=== PATIENT | male | born 1930 | race Caucasian/White ===

== ENCOUNTER → 2016-05-06 | Outpatient (CLI) | payer BC ==
[~2016-05-06] MED LIST: ASPI1TAB83 PO; CHOL1CAP57 PO; GLCSR500 PO; INSDGI SQ; MULTTAB58 PO; NIAC500T83 PO; SIMV-151 PO
[2016-05-06 10:01] LABS: BLOOD UREA NITROGEN 17 mg/dl (7-18); BUN/CREATININE RATIO 17.4 (10-20); CALCIUM 9.1 mg/dl (8.5-10.1); CARBON DIOXIDE 28 mmol/L (21-32); CHLORIDE 102 mmol/L (98-107); GLUCOSE 138 mg/dl (70-99); POTASSIUM 4.4 mmol/L (3.5-5.1); SODIUM 140 mmol/L (136-145)
[2016-05-06 10:40] LABS: ESTIMATED AVERAGE GLUCOSE 177 mg/dl; HA1C FLAG Normal (Normal)
== END | disposition home or self-care (01) ==
LOC: C.LAB 07:35
PROVIDERS: ATTEND Internal Medicine
DX: E11.9 Type 2 diabetes mellitus without complications (principal)

== ENCOUNTER → 2016-11-23 | Outpatient (CLI) | payer BC ==
[~2016-11-23] MED LIST changes: -NIAC500T83 PO; +NSP/500 PO
[2016-11-23 09:35] LABS: BASO % 0.4 %; BASO ABS # 0.03 K/uL (0-0.2); COMPLETE YES; EOS % 1.6 %; HEMATOCRIT 43.5 % (42-52); IG% 0.4 %; LYMPH % 22.2 %; LYMPH ABS # 1.51 K/uL (1.2-3.4); MEAN CELL VOLUME 89.3 fL (80-100); MEAN CORPUSCULAR HGB CONC 33.6 g/dl (32-36); MEAN PLATELET VOLUME 10.5 fL (7.4-10.4); MONO % 9.1 %; NEUT % 66.3 %; PLATELET COUNT 241 K/uL (130-400); RED BLOOD COUNT 4.87 M/uL (4.7-6.1); WHITE BLOOD COUNT 6.79 K/uL (4.8-10.8)
[2016-11-23 09:56] LABS: ALT/SGPT 13 U/L (12-78); AST/SGOT 12 U/L (15-37); BLOOD UREA NITROGEN 15 mg/dl (7-18); BUN/CREATININE RATIO 13.5 (10-20); CALCIUM 9.2 mg/dl (8.5-10.1); CARBON DIOXIDE 30 mmol/L (21-32); CHLORIDE 102 mmol/L (98-107); CHOLESTEROL 145 mg/dl (0-200); GLUCOSE 90 mg/dl (70-99); POTASSIUM 4.6 mmol/L (3.5-5.1); SODIUM 138 mmol/L (136-145); TRIGLYCERIDES 88 mg/dl (0-150); VERY LOW DENSITY LIPOPROT CALC 18 mg/dl
[2016-11-23 09:59] LABS: ALB/GLOB RATIO 1.1 (0.9-2); ALKALINE PHOSPHATASE 48 U/L (45-117); CHOLESTEROL/HDL RATIO 3.2; ESTIMATED AVERAGE GLUCOSE 186 mg/dl; HA1C FLAG Normal (Normal); HDL CHOLESTEROL 45 mg/dl; LDL CHOLESTEROL CALCULATED 82 mg/dl
--- NOTE | 2016-11-30 08:22 | CODING QUERY MEDICAL NECESSITY ---
SUPPORTING DIAGNOSIS NEEDED Dr. Jack, A supporting diagnosis is required for the test/procedure performed on this patient in order for us to be reimbursed by the patient's insurance. Please provide a supporting diagnosis for the following test/procedure listed below next to the test name along with your signature. *If there is no additional diagnosis for this patient that would support the following test/procedure please document that below next to the test/procedure. Test(s)/Procedure(s) that require a supporting diagnosis: * ([id number]) VITAMIN D ASSAY DIAGNOSIS: * [id number] GLYCATED HEMOGLOBIN DIAGNOSIS: DATE OF SERVICE: 11/23/16 Provider Signature: Date: Thank you Huber Almanzar Health Information Management Once completed, please kindly fax back to [phone] For questions please call [phone]
== END | disposition home or self-care (01) ==
LOC: C.LAB 07:21
PROVIDERS: ATTEND Internal Medicine
DX: M54.5 Low back pain (principal); E55.9 Vitamin D deficiency, unspecified; E11.9 Type 2 diabetes mellitus without complications

== ENCOUNTER → 2016-12-02 | Outpatient (CLI) | payer BC ==
--- NOTE | 2016-12-02 09:43 | DIAGNOSTIC IMAGING REPORT ---
LUMBAR SPINE 5 VIEWS HISTORY: M54.5 Low back pain COMPARISON: Lumbar spine 12/04/2013. FINDINGS: There is no fracture. No subluxation. S1 appears to be a transitional vertebra. There is mild to moderate disc space narrowing at L5-S1 which is slightly progressed. Remaining disc spaces are preserved. Moderate to severe facet degenerative changes within the lower lumbar spine which is also progressed. The sacrum appears intact. IMPRESSION: No fracture or subluxation within the lumbar spine. Progression of the degenerative changes within the lower lumbar spine as described above. Electronically signed by: Raj Madison M.D. 12/02/2016 9:42 AM Dictated Date/Time: 12/02/2016 9:38 AM
== END | disposition home or self-care (01) ==
LOC: C.RADBC 09:11
PROVIDERS: ATTEND Internal Medicine
DX: M54.5 Low back pain (principal)

== ENCOUNTER → 2017-06-03 | Outpatient (CLI) | payer BC ==
[~2017-06-03] MED LIST changes: +NIAC500T83 PO; -NSP/500 PO
[2017-06-03 09:45] LABS: HEMOGLOBIN A1C 8.3 % (4.5-5.6)
== END | disposition home or self-care (01) ==
LOC: C.LAB 07:33
PROVIDERS: ATTEND Internal Medicine
DX: E11.9 Type 2 diabetes mellitus without complications (principal); E55.9 Vitamin D deficiency, unspecified

== ENCOUNTER → 2017-07-26 | Outpatient (CLI) | payer BC ==
[2017-07-26 10:42] LABS: BASO % 0.2 %; BASO ABS # 0.02 K/uL (0-0.2); EOS % 0.6 %; EOS ABS # 0.05 K/uL (0-0.5); HEMOGLOBIN 14.3 g/dL (14.0-18.0); IG# 0.02 K/uL (0.00-0.02); LYMPH % 16.2 %; LYMPH ABS # 1.33 K/uL (1.2-3.4); MEAN CELL VOLUME 88.4 fL (80-100); MEAN CORPUSCULAR HEMOGLOBIN 30.1 pg (25-34); MEAN PLATELET VOLUME 10.5 fL (7.4-10.4); MONO % 7.4 %; MONO ABS # 0.61 K/uL (0.11-0.59); NEUT % 75.4 %; NEUT ABS # 6.17 K/uL (1.4-6.5); PLATELET COUNT 254 K/uL (130-400); RED CELL DISTRIBUTION WIDTH CV 13.3 % (11.5-14.5); RED CELL DISTRIBUTION WIDTH SD 43.5 fL (36.4-46.3)
[2017-07-26 11:06] LABS: ALBUMIN 3.6 gm/dl (3.4-5.0); ALT/SGPT 13 U/L (12-78); AST/SGOT 13 U/L (15-37); BLOOD UREA NITROGEN 19 mg/dl (7-18); CARBON DIOXIDE 28 mmol/L (21-32); CREATININE 1.11 mg/dl (0.60-1.40); GLUCOSE 287 mg/dl (70-99); POTASSIUM 4.7 mmol/L (3.5-5.1); SODIUM 131 mmol/L (136-145)
[2017-07-26 11:09] LABS: ALKALINE PHOSPHATASE 54 U/L (45-117); TOTAL PROTEIN 7.3 gm/dl (6.4-8.2)
== END | disposition home or self-care (01) ==
LOC: C.LABBC 09:00
PROVIDERS: ATTEND Family Medicine Adult Medicine
DX: R10.9 Unspecified abdominal pain (principal)

== ENCOUNTER → 2017-11-23 | Outpatient (CLI) | payer BC ==
[~2017-11-23] MED LIST changes: +ACET-1047 PO; +GLC/500 PO; -GLCSR500 PO; -INSDGI SQ; +INSDGIPEN SC; +NRV5 PO; +XLTOPS OPR
--- NOTE | 2017-11-23 14:50 | DIAGNOSTIC IMAGING REPORT ---
R RIBS UNILATERAL WITH PA CHEST (5 views) CLINICAL HISTORY: RIGHT RIB PAIN STATUS POST TRAUMA COMPARISON STUDY: Chest x-ray dated 10/07/2017 FINDINGS: The erect chest reveals no pneumothorax. There are low lung volumes with mild basilar atelectasis. No acute fractures are visualized. IMPRESSION: No evidence of pneumothorax. No right-sided rib fractures identified. Electronically signed by: Avila Pink M.D. 11/23/2017 2:49 PM Dictated Date/Time: 11/23/2017 2:47 PM
--- NOTE | 2017-11-23 14:50 | DIAGNOSTIC IMAGING REPORT ---
RIGHT CLAVICLE RADIOGRAPHS CLINICAL HISTORY: Right shoulder pain following fall. COMPARISON: Chest CT October 07, 2017. FINDINGS: Alignment of the right acromioclavicular joint is anatomic. No acute fracture of the right clavicle is identified. IMPRESSION: No acute fracture of the right clavicle. Electronically signed by: Eloy Reynolds M.D. 11/23/2017 2:49 PM Dictated Date/Time: 11/23/2017 2:47 PM
--- NOTE | 2017-11-23 14:52 | DIAGNOSTIC IMAGING REPORT ---
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 The bones appear moderately demineralized. No acute fracture or dislocation. Right basilar opacities suggest atelectasis. Calcification of the aorta. IMPRESSION: No acute fracture or dislocation. The above report was generated using voice recognition software. It may contain grammatical, syntax or spelling errors. Electronically signed by: Winston Black M.D. 11/23/2017 2:50 PM Dictated Date/Time: 11/23/2017 2:48 PM
== END | disposition home or self-care (01) ==
LOC: C.RADBC 14:28
PROVIDERS: ATTEND Physician Assistant Medical
DX: M25.511 Pain in right shoulder (principal); R07.81 Pleurodynia; W19.XXXA Unspecified fall, initial encounter

== ENCOUNTER 2019-05-10 20:44 | Observation (INO) ==
[2019-05-10] MEDS ORDERED: ONDANSETRON INJ 2 MG/ML 2 ML VIAL IV STA (20:53)
[2019-05-10 21:23] LABS: Basophils # (auto) 0.04 K/uL (0-0.2); Basophils % (auto) 0.3 %; Eosinophils # (auto) 0.17 K/uL (0-0.5); Eosinophils % (auto) 1.2 %; Hematocrit (blood only) 45.6 % (42-52); Hemoglobin 15.5 g/dL (14.0-18.0); Immature Granulocytes # (auto) 0.06 K/uL (0.00-0.02); Immature Granulocytes % (auto) 0.4 %; Lymphocytes # (auto) 1.23 K/uL (1.2-3.4); Lymphocytes % (auto) 8.6 %; Mean Corpuscular Hemoglobin 30.5 pg (25-34); Mean Corpuscular Volume 89.8 fL (80-100); Mean Platelet Volume 9.8 fL (7.4-10.4); Monocytes # (auto) 0.91 K/uL (0.11-0.59); Monocytes % (auto) 6.4 %; Neutrophils # (auto) 11.92 K/uL (1.4-6.5); Neutrophils % (auto) 83.1 %; Platelet Count 298 K/uL (130-400); RDW Coefficient of Variation 13.5 % (11.5-14.5); RDW Standard Deviation 44.4 fL (36.4-46.3); Red Blood Count 5.08 M/uL (4.7-6.1); White Blood Count 14.33 K/uL (4.8-10.8)
[2019-05-10] MEDS: SODIUM CHLORIDE 0.9% 500 ML IV SCH (21:29)
--- NOTE | 2019-05-10 21:32 | XRay Report ---
XR chest 1V portable CLINICAL HISTORY: Abdominal pain and vomiting. COMPARISON STUDY: Chest radiograph October 07, 2017 and November 23, 2017. FINDINGS: Lung volumes are diminished. There is no pneumothorax or pleural effusion. Linear bibasilar opacities favor atelectasis. There is no evidence for pulmonary edema. Cardiomediastinal silhouette is stable. Appearance of the chest is unchanged. IMPRESSION: 1. No acute findings. 2. Linear bibasilar opacities suggestive of atelectasis. ACT 112: Negative or not required by law. Electronically signed by: Eloy Reynolds M.D. 05/10/2019 9:31 PM
[2019-05-10 21:34] LABS: Partial Thromboplastin Ratio 1.5; Partial Thromboplastin Time 40.2 Seconds (21.0-31.0); Prothrombin Time 10.4 Seconds (9.0-12.0)
[2019-05-10 21:39] LABS: Alanine Aminotransferase 12 U/L (12-78); Albumin Level 4.4 gm/dl (3.4-5.0); Aspartate Aminotransferase 16 U/L (15-37); BUN Creatinine Ratio 18.1 (10-20); Bilirubin Direct < 0.1 mg/dl (0-0.2); Blood Urea Nitrogen 19 mg/dl (7-18); Calcium 9.6 mg/dl (8.5-10.1); Carbon Dioxide 30 mmol/L (21-32); Chloride 99 mmol/L (98-107); Creatinine Clr Calc Pharmacy 45.2 ml/min; Est GFR (African American) 73.6; Est GFR (Non-African American) 63.5; Glucose 220 mg/dl (70-99); Lipase 152 U/L (73-393); Potassium 4.1 mmol/L (3.5-5.1); Sodium 134 mmol/L (136-145)
[2019-05-10 21:44] LABS: Alkaline Phosphatase 65 U/L (45-117); Bilirubin,Total 0.4 mg/dl (0.2-1); Total Protein 8.6 gm/dl (6.4-8.2); Troponin I < 0.015 ng/ml (0-0.045)
[2019-05-10] MEDS ORDERED: IOVERSOL 100ml IV PRN (22:06)
--- NOTE | 2019-05-10 22:29 | CT Scan Report ---
CT OF THE ABDOMEN AND PELVIS WITH CONTRAST CLINICAL HISTORY: Abdominal pain and vomiting. COMPARISON STUDY: Abdominal ultrasound December 07, 2013. TECHNIQUE: Following IV administration of 89 mL of Optiray-320, axial images of the abdomen and pelvi s were obtained from the lung bases to the proximal femurs. Images were reviewed in the axial, sagitt al, and coronal planes. IV contrast was administered without complication. Automated exposure contro l was utilized for the study. A dose lowering technique was utilized adhering to the principles of A GRICELDA. CT DOSE: 745.55 mGycm FINDINGS: Opacities within the lower lungs reflect atelectasis. No pneumatosis, free air or portal ve nous gas is present. The liver, spleen, adrenal glands, right kidney and pancreas are unremarkable. T here is no biliary or pancreatic ductal dilatation. There are gallstones within the gallbladder. Ther e is mild gallbladder wall thickening. The gallbladder is mildly distended. There is slight infiltrat ion within the ish hepatis. There is no hydronephrosis. A tiny 7 mm lesion within the midpole of th e left kidney measures above water attenuation. Chronic diverticulosis is noted without evidence for acute diverticulitis. The appendix is normal. Caliber and wall thickness of small and large bowel are normal. Major vasculature is patent. Moderate enlargement of the prostate is noted. There is no hydr onephrosis. There are no suspicious osseous lesions. IMPRESSION: 1. Cholelithiasis, mild gallbladder wall thickening and possible adjacent infiltration. Acute cholecy stitis is favored. A hepatobiliary scan could be obtained as indicated. No biliary ductal dilatation. 2. 7 mm lesion within the midpole of the left kidney which is too small to characterize. This could r eflect a small solid renal lesion or complex cyst. A follow-up renal protocol CT in 6 months is recom mended. ACT 112: Positive. There are findings on this exam that require communication between the performing entity and the patient following Patient Test Result Information Act ([place] Act 112) guidelines. Electronically signed by: Eloy Reynolds M.D. 05/10/2019 10:28 PM
[2019-05-10] MEDS ORDERED: MoRPHine SULFATE 4 MG/ML 1 ML CARP\\VIAL IV STA (22:34)
[2019-05-10] MEDS ORDERED: cefTRIAXone SODIUM 1,000 MG/50 ML BAG IV STA (22:34)
[2019-05-10] MEDS ORDERED: metroNIDAZOLE 500 MG/100 ML BAG IV STA (22:34)
[2019-05-10 22:51] LABS: Appearance Urine Turbid (Clear); Bacteria Urine Automated Negative (Negative); Bilirubin Urine Negative (Negative); Blood Urine Negative (Negative); Color Urine Yellow; Glucose Urine UA 2+ (Negative); Ketones Urine Trace (Negative); Leukocyte Esterase Urine Negative (Negative); Nitrite Urine Negative (Negative); Protein Urine Negative (Negative); Specific Gravity Urine 1.043 (1.000-1.030); Urobilinogen Urine Negative (Negative)
--- NOTE | 2019-05-10 23:30 | Emergency Department Note ---
Entered by Audrey Lo acting as a scribe for Nj García History of Present Illness General Chief complaint: Abdominal Pain Stated complaint: PAIN IN ABD FOR HOUR, THROWING UP Time Seen by Provider: 05/10/19 20:48 Source: patient History of Present Illness Onset (ago): hour(s) 3 Location: abdomen Pain Consistency: + other (persistent ) Maximum Pain Intensity: 8 Associated symptoms: + nausea/vomiting; no chest pain, no fever/chills and no shortness of breath Treatments prior to arrival: none The patient is a 88 year old male who presents to the Emergency Room with complaints of persistent abdominal pain that began at 1800, approximately 3 hours prior to arrival. The patient states that during this time he has had nausea and vomiting. The patient states that he ate dinner but states that he was not able to keep this down. He denies chest pain, shortness of breath, and fevers. The patient denies any previous abdominal surgeries and denies being on blood thinners. Home Medications Home Medications Medication Instructions Recorded Confirmed Type amlodipine 5 mg tablet 5 mg PO DAILY #90 tab 11/09/18 05/10/19 Rx dorzolamide 22.3 mg-timolol 6.8 1 drp OPB BID ml 11/21/18 05/10/19 History mg/mL eye drops insulin glargine 100 unit/mL (3 See Rx Instructions .ROUTE 11/21/18 05/10/19 History mL) subcutaneous pen .COMPLEX #4 ml latanoprost 0.005 % eye drops 1 drops OP HS ml 11/21/18 05/10/19 History multivitamin 1 tab PO DAILY 11/21/18 05/10/19 History niacin 500 mg tablet,extended 500 mg PO HS #90 tab 11/21/18 05/10/19 History release blood sugar diagnostic #10 ea 01/23/19 03/23/19 History pen needle, diabetic 32 gauge x #2 box 02/09/19 03/23/19 Rx 5/32" simvastatin 20 mg tablet 20 mg PO DAILY #90 tab 03/05/19 05/10/19 Rx cholecalciferol (vitamin D3) 2,000 2,000 units PO Q OTHER DAY tab 03/18/19 05/10/19 History unit tablet metformin 1,000 mg tablet 1,000 mg PO BID #180 tab 03/26/19 05/10/19 Rx aspirin [Aspir-81] 81 mg PO DAILY 05/10/19 05/10/19 History Allergies Allergy/AdvReac Type Severity Reaction Status Date / Time naproxen Allergy Intermediate LIPS & Verified 05/10/19 21:58 CHEEKS SWELL Sulfa (Sulfonamide Allergy Mild mild Verified 05/10/19 21:58 Antibiotics) family history Past Med/Surg History Medical History BPH (benign prostatic hyperplasia) (Resolved) Diabetes (Chronic) Diabetes mellitus Dyslipidemia Hyperlipidemia (Chronic) Hypertension Hypertension, benign (Chronic) 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 Type 2 diabetes mellitus (Chronic) Vitamin D deficiency (Chronic) Surgical History S/P TURP Family History Mother No acute medical problems Father Prostate cancer Asthma Social History Preferred Language: Italian Visual Impairment: No Limitations Hearing Ability: Use of Hearing Aid marital status: Current Living Situation: Spouse current occupational status: retired Feels Safe at Home: Yes Smoking Status: Former smoker Hx Alcohol Use: Yes Alcohol type: beer Alcohol Intake Frequency: Rarely Hx Substance Use: No Childhood Exposure to Second-Hand Smoke: Yes Dental Care, Regularly: Yes Physical Activity Frequency: 3-4 Times per Week Seatbelt Use: always Sunscreen Use: No Review of Systems See HPI for pertinent positives & negatives. and A total of 10 systems reviewed and were otherwise negative Physical Exam Vital Signs Vital Signs - 24 hr 05/10/19 20:45 05/10/19 21:00 05/10/19 21:04 Temperature 36.4 C L Temperature Source Oral Pulse Rate 76 70 Pulse Rate from SpO2 Sensor 70 Respiratory Rate 20 20 Respiratory Effort / Characteristics Non-Labored Spontaneous Respiratory Depth Normal Blood Pressure 175/73 H 166/86 H Blood Pressure Mean 107 110 Pulse Oximetry 95 90 91 Oxygen Delivery Method Room Air Room Air Sepsis Action Taken by Nursing No Action Required 05/10/19 22:00 05/10/19 23:00 Temperature Temperature Source Pulse Rate 66 69 Pulse Rate from SpO2 Sensor Respiratory Rate 18 17 Respiratory Effort / Characteristics Respiratory Depth Blood Pressure 141/81 H 141/68 H Blood Pressure Mean 100 101 Pulse Oximetry 92 Oxygen Delivery Method Room Air Sepsis Action Taken by Nursing GENERAL: He is oriented to person, place, and time. He appears well-developed and well-nourished. He does not appear distressed. HENT: Exam performed. - Head: Normocephalic and atraumatic. - Right Ear: External ear normal. No mastoid tenderness. - Left Ear: External ear normal. No mastoid tenderness. - Mouth/Throat: The oropharynx is clear and moist. No trismus in the jaw. No dental abscesses or uvula swelling. No oropharyngeal exudate or tonsillar abscesses. EYES: Conjunctivae and EOM are normal. Pupils are equal, round, and reactive to light. Right eye exhibits no discharge. Left eye exhibits no discharge. No scleral icterus. NECK: Normal range of motion. Neck supple. No JVD present. No spinous process tenderness present. No carotid bruit present. No rigidity. No tracheal deviation and normal range of motion present. No Brudzinski's sign and no Kernig's sign noted. CV: Normal rate, regular rhythm, normal heart sounds and intact distal pulses. There is no peripheral edema. Palpable radial pulses bue. PULM/CHEST: Effort normal and breath sounds normal. No respiratory distress. No stridor. He has no wheezes. He has no rales. - Chest Wall: He exhibits no tenderness. ABD: The abdomen is soft. Bowel sounds are normal. He has no distension. No mass is present. Diffuse pain on palpation of the abdomen. There is no rebound, no guarding, no Mendoza's sign and no tenderness at McBurney's point. Rovsig ne gative. MUSC/SKEL: Normal range of motion. There is no peripheral edema, tenderness or deformity. LYMPH: No cervical adenopathy. NEURO: He is alert and oriented to person, place, and time. He has normal strength. No cranial nerve deficit or sensory deficit. Coordination and gait normal. GCS eye subscore is 4. GCS verbal subscore is 5. GCS motor subscore is 6. Cerebellar tests wnl. SKIN: Skin is warm and dry. He is not diaphoretic. PSYCH: He has a normal mood and affect. Behavior is normal. Judgment and thought content normal. Course Course 2049: Past medical records reviewed. The patient was evaluated in room B5. A complete history and physical exam was performed. 2238: Vital signs stable. Labs show leukocytosis of 14.3. CT shows findings concerning for acute cholecystitis. I discussed the case with Dr. Scott- General Surgery who recommends getting an ultrasound, starting antibiotics, and having the patient admitted to the hospitalist service and he can be on consult. Rocephin and Flagyl started in the emergency department. Ultrasound ordered. Dr. Carmichael-[facility] Hospitalist team was notified and made aware of the patient. Administered Medications Sodium Chloride (Nss) 500 mls @ 125 mls/hr IV .Q4H MIGUEL ANGEL Stop: 06/09/19 20:59 Last Admin: 05/10/19 21:29 Dose: 125 mls/hr Documented by: [id number] Metronidazole (Flagyl) 500 mg in 100 mls @ 100 mls/hr IV NOW STA Stop: 05/10/19 23:33 Last Admin: 05/10/19 23:02 Dose: 100 mls/hr Documented by: [id number] Ioversol (Optiray 320 100ml) 93 ml IV ONCE PRN PRN Reason: Interaction Checking Stop: 05/14/19 22:05 Last Admin: 05/10/19 22:07 Dose: 1 ml Documented by: [id number] Discontinued Medications Ceftriaxone Sodium (Rocephin) 1,000 mg in 50 mls @ 100 mls/hr IV NOW STA Stop: 05/10/19 23:03 Last Admin: 05/10/19 23:02 Dose: 100 mls/hr Documented by: [id number] Morphine Sulfate (Morphine Sulfate) 4 mg IV NOW STA Stop: 05/10/19 22:35 Last Admin: 05/10/19 22:46 Dose: 4 mg Documented by: [id number] Ondansetron HCl (Zofran) 4 mg IV NOW STA Stop: 05/10/19 20:54 Last Admin: 05/10/19 21:29 Dose: 4 mg Documented by: [id number] Medical Decision Making Medical Records Attestation: I reviewed the patient's medical records. Home Medications Current Medication List: was personally reviewed by me Laboratory Data Attestation: I reviewed the patient's lab results. Result diagrams: 05/10/19 21:11 05/10/19 21:11 Lab Results 05/10/19 05/10/19 05/10/19 Range/Units 21:11 21:11 21:11 WBC 14.33 H (4.8-10.8) K/uL RBC 5.08 (4.7-6.1) M/uL Hgb 15.5 (14.0-18.0) g/dL Hct 45.6 (42-52) % MCV 89.8 (80-100) fL MCH 30.5 (25-34) pg MCHC 34.0 (32-36) g/dL RDW Std Deviation 44.4 (36.4-46.3) fL RDW Coeff of Natasha 13.5 (11.5-14.5) % Plt Count 298 (130-400) K/uL MPV 9.8 (7.4-10.4) fL Immature Gran % (Auto) 0.4 % Neut % (Auto) 83.1 % Lymph % (Auto) 8.6 % Gallia % (Auto) 6.4 % Eos % (Auto) 1.2 % Baso % (Auto) 0.3 % Immature Gran # (Auto) 0.06 H (0.00-0.02) K/uL Neut # (Auto) 11.92 H (1.4-6.5) K/uL Lymph # (Auto) 1.23 (1.2-3.4) K/uL Gallia # (Auto) 0.91 H (0.11-0.59) K/uL Eos # (Auto) 0.17 (0-0.5) K/uL Baso # (Auto) 0.04 (0-0.2) K/uL PT (9.0-12.0) Seconds INR (0.9-1.1) APTT (21.0-31.0) Seconds PTT Ratio Sodium 134 L (136-145) mmol/L Potassium 4.1 (3.5-5.1) mmol/L Chloride 99 (98-107) mmol/L Carbon Dioxide 30 (21-32) mmol/L Anion Gap 4.0 (3-11) BUN 19 H (7-18) mg/dl Creatinine 1.05 (0.6-1.4) mg/dl Est Cr Clr Drug Dosing 45.2 ml/min Est GFR ( Amer) 73.6 Est GFR (Non-Af Amer) 63.5 BUN/Creatinine Ratio 18.1 (10-20) Glucose 220 H (70-99) mg/dl Lactate 1.2 (0.4-2.0) mmol/L Calcium 9.6 (8.5-10.1) mg/dl Total Bilirubin 0.4 (0.2-1) mg/dl Direct Bilirubin < 0.1 (0-0.2) mg/dl AST 16 (15-37) U/L ALT 12 (12-78) U/L Alkaline Phosphatase 65 (45-117) U/L Troponin I < 0.015 (0-0.045) ng/ml Total Protein 8.6 H (6.4-8.2) gm/dl Albumin 4.4 (3.4-5.0) gm/dl Lipase 152 (73-393) U/L Urine Color Urine Appearance (Clear) Urine pH (4.5-7.5) Ur Specific [place] (1.000-1.030) Urine Protein (Negative) Urine Glucose (UA) (Negative) Urine Ketones (Negative) Urine Blood (Negative) Urine Nitrite (Negative) Urine Bilirubin (Negative) Urine Urobilinogen (Negative) Ur Leukocyte Esterase (Negative) Urine WBC (Auto) (0-5) /hpf Urine RBC (Auto) (0-4) /hpf U Hyaline Cast (Auto) (0-5) /lpf U Epithel Cells (Auto) (0-5) /lpf Urine Bacteria (Auto) (Negative) 05/10/19 05/10/19 Range/Units 21:11 22:25 WBC (4.8-10.8) K/uL RBC (4.7-6.1) M/uL Hgb (14.0-18.0) g/dL Hct (42-52) % MCV (80-100) fL MCH (25-34) pg MCHC (32-36) g/dL RDW Std Deviation (36.4-46.3) fL RDW Coeff of Natasha (11.5-14.5) % Plt Count (130-400) K/uL MPV (7.4-10.4) fL Immature Gran % (Auto) % Neut % (Auto) % Lymph % (Auto) % Gallia % (Auto) % Eos % (Auto) % Baso % (Auto) % Immature Gran # (Auto) (0.00-0.02) K/uL Neut # (Auto) (1.4-6.5) K/uL Lymph # (Auto) (1.2-3.4) K/uL Gallia # (Auto) (0.11-0.59) K/uL Eos # (Auto) (0-0.5) K/uL Baso # (Auto) (0-0.2) K/uL PT 10.4 (9.0-12.0) Seconds INR 1.0 (0.9-1.1) APTT 40.2 H (21.0-31.0) Seconds PTT Ratio 1.5 Sodium (136-145) mmol/L Potassium (3.5-5.1) mmol/L Chloride (98-107) mmol/L Carbon Dioxide (21-32) mmol/L Anion Gap (3-11) BUN (7-18) mg/dl Creatinine (0.6-1.4) mg/dl Est Cr Clr Drug Dosing ml/min Est GFR ( Amer) Est GFR (Non-Af Amer) BUN/Creatinine Ratio (10-20) Glucose (70-99) mg/dl Lactate (0.4-2.0) mmol/L Calcium (8.5-10.1) mg/dl Total Bilirubin (0.2-1) mg/dl Direct Bilirubin (0-0.2) mg/dl AST (15-37) U/L ALT (12-78) U/L Alkaline Phosphatase (45-117) U/L Troponin I (0-0.045) ng/ml Total Protein (6.4-8.2) gm/dl Albumin (3.4-5.0) gm/dl Lipase (73-393) U/L Urine Color Yellow Urine Appearance Turbid A (Clear) Urine pH 8.0 H (4.5-7.5) Ur Specific [place] 1.043 H (1.000-1.030) Urine Protein Negative (Negative) Urine Glucose (UA) 2+ H (Negative) Urine Ketones Trace H (Negative) Urine Blood Negative (Negative) Urine Nitrite Negative (Negative) Urine Bilirubin Negative (Negative) Urine Urobilinogen Negative (Negative) Ur Leukocyte Esterase Negative (Negative) Urine WBC (Auto) 1-5 (0-5) /hpf Urine RBC (Auto) 5-10 H (0-4) /hpf U Hyaline Cast (Auto) 1-5 (0-5) /lpf U Epithel Cells (Auto) 10-20 H (0-5) /lpf Urine Bacteria (Auto) Negative (Negative) Imaging Data Radiologist's Impression: Radiology results as stated below per my review and the radiologist's interpretation: XR chest 1V portable CLINICAL HISTORY: Abdominal pain and vomiting. COMPARISON STUDY: Chest radiograph October 07, 2017 and November 23, 2017. FINDINGS: Lung volumes are diminished. There is no pneumothorax or pleural effusion. Linear bibasilar opacities favor atelectasis. There is no evidence for pulmonary edema. Cardiomediastinal silhouette is stable. Appearance of the chest is unchanged. IMPRESSION: 1. No acute findings. 2. Linear bibasilar opacities suggestive of atelectasis. ACT 112: Negative or not required by law. Electronically signed by: Eloy Reynolds M.D. 05/10/2019 9:[address] OF THE ABDOMEN AND PELVIS WITH CONTRAST CLINICAL HISTORY: Abdominal pain and vomiting. COMPARISON STUDY: Abdominal ultrasound December 07, 2013. TECHNIQUE: Following IV administration of 89 mL of Optiray-320, axial images of the abdomen and pelvis were obtained from the lung bases to the proximal femurs. Images were reviewed in the axial, sagittal, and coronal planes. IV contrast was administered without complication. Automated exposure control was utilized for the study. A dose lowering technique was utilized adhering to the principles of ALARA. CT DOSE: 745.55 mGycm FINDINGS: Opacities within the lower lungs reflect atelectasis. No pneumatosis, free air or portal venous gas is present. The liver, spleen, adrenal glands, right kidney and pancreas are unremarkable. There is no biliary or pancreatic ductal dilatation. There are gallstones within the gallbladder. There is mild gallbladder wall thickening. The gallbladder is mildly distended. There is slight infiltration within the ish hepatis. There is no hydronephrosis. A tiny 7 mm lesion within the midpole of the left kidney measures above water attenuation. Chronic diverticulosis is noted without evidence for acute diverticulitis. The appendix is normal. Caliber and wall thickness of small and large bowel are normal. Major vasculature is patent. Moderate enlargement of the prostate is noted. There is no hydronephrosis. There are no suspicious osseous lesions. IMPRESSION: 1. Cholelithiasis, mild gallbladder wall thickening and possible adjacent infiltration. Acute cholecystitis is favored. A hepatobiliary scan could be obtained as indicated. No biliary ductal dilatation. 2. 7 mm lesion within the midpole of the left kidney which is too small to characterize. This could reflect a small solid renal lesion or complex cyst. A follow-up renal protocol CT in 6 months is recommended. ACT 112: Positive. There are findings on this exam that require communication between the performing entity and the patient following Patient Test Result Information Act ([place] Act 112) guidelines. Electronically signed by: Eloy Reynolds M.D. 05/10/2019 10:28 PM ECG Data Attestation: I personally reviewed and interpreted this ECG as follows: Indication: + other (epigastric pain) Rate (beats per minute): 72 Rhythm: + sinus rhythm ECG Intervals/blocks: + Normal QRS, + Normal WA and + Normal QT-c ECG ST segments: no ST depression and no ST elevation Blood Pressure Blood Pressure Findings: Elevated blood pressure Blood Pressure Disposition: elevated BP felt to be situational MDM Narrative Vital signs stable. Labs show leukocytosis of 14.3. CT shows findings concerning for acute cholecystitis. I discussed the case with Dr. Scott- General Surgery who recommends getting an ultrasound, starting antibiotics, and having the patient admitted to the hospitalist service and he can be on consult. Rocephin and Flagyl started in the emergency department. Ultrasound ordered. Dr. Carmichael-[facility] Hospitalist team was notified and made aware of the patient. Impression & Plan Acute cholecystitis Discharge Plan Visit Data Chief Complaint: Abdominal Pain Stated Complaint: PAIN IN ABD FOR HOUR, THROWING UP ED Provider: Nj García Discharge Problem: Acute cholecystitis Patient Disposition: Being Evaluated by Hospitalist Forms Stand Alone Forms: My [facility] Prescriptions Prescriptions: No Action amlodipine 5 mg tablet 5 mg PO DAILY Qty: 90 RF: 3 (DME) pen needle, diabetic [BD Ultra-Fine Joslyn Pen Needle] 32 gauge x 5/32" needle See Dose Instructions .ROUTE .MEDSUPPLY Qty: 2 RF: 3 simvastatin 20 mg tablet 20 mg PO DAILY Qty: 90 RF: 3 metformin 1,000 mg tablet 1,000 mg PO BID Qty: 180 RF: 1 dorzolamide-timolol [Cosopt] 22.3-6.8 mg/mL drops 1 drp OPB BID RF: 0 latanoprost 0.005 % drops 1 drops OP HS RF: 0 multivitamin [Multiple Vitamins] tablet 1 tab PO DAILY RF: 0 niacin 500 mg tablet extended release 500 mg PO HS Qty: 90 RF: 0 Lantus Solostar U-100 Insulin 100 unit/mL (3 mL) insulin pen See Rx Instructions .ROUTE .COMPLEX Qty: 4 RF: 0 cholecalciferol (vitamin D3) 2,000 unit tablet 2,000 units PO Q OTHER DAY RF: 0 (DME) OneTouch Ultra Blue Test Strip strip See Dose Instructions .ROUTE .MEDSUPPLY Qty: 10 RF: 0 aspirin [Aspir-81] 81 mg Tablet,Delayed Release (Dr/Ec) 81 mg PO DAILY RF: 0 Referrals Referrals: Len Jack MD [Primary Care Provider] - The scribe's documentation has been prepared under my direction and personally reviewed by me in its entirety. I confirm that the note above accurately reflects all work, treatment, procedures, and medical decision making performed by me.
--- NOTE | 2019-05-11 01:07 | History & Physical Report ---
Date of Service May 11, 2019 Assessment & Plan (1) Acute cholecystitis: 88-year-old male with history of diabetes, hypertension, hyperlipidemia presents with generalized abdominal pain and emesis beginning this evening after eating dinner. The patient is afebrile, with a white count of 14.3, lactate within normal limits. CT of the abdomen showed cholelithiasis with gallbladder wall thickening and a possible infiltrate adjacent to the gallbladder, consistent with acute cholecystitis. Acute cholecystitis CT abdomen showing GB wall thickening, adjacent infiltrate. Cholelithiasis noted, no signs of obstruction Gallbladder ultrasound results pending at the time of admission Treat with IV antibiotics-- ceftriaxone 2 g daily, metronidazole 500 mg 3 times daily Control pain, keep n.p.o. except for medications, normal saline 125 cc/h General surgery consult placed, appreciate recommendations Hypertension/hyperlipidemia Continue amlodipine Hold aspirin Diabetes sliding scale insulin, Lantus 20 units every morning DVT prophylaxis SCDs, ambulate. Hold chemical prophylaxis until seen by surgery CODE STATUS Full FEN Normal saline 125 cc/h, n.p.o. (2) Hyperlipidemia: (3) Hypertension, benign: (4) Type 2 diabetes mellitus: History of Present Illness Primary Care Provider: Len Jack MD 88-year-old male with history of diabetes, hypertension, hyperlipidemia presents with generalized abdominal pain beginning this evening after eating dinner. He described the pain as severe and cramping. He said he became diaphoretic and nauseous and had approximately 4 episodes of emesis. He denies any fevers, chills, night sweats. He denies any chest pain. He denies past medical history of CAD. The patient is on aspirin. Allergies Allergy/AdvReac Type Severity Reaction Status Date / Time naproxen Allergy Intermediate LIPS & Verified 05/10/19 21:58 CHEEKS SWELL Sulfa (Sulfonamide Allergy Mild mild Verified 05/10/19 21:58 Antibiotics) family history Home Medications Home Medications Medication Instructions Recorded Confirmed Type amlodipine 5 mg tablet 5 mg PO DAILY #90 tab 11/09/18 05/10/19 Rx dorzolamide 22.3 mg-timolol 6.8 1 drp OPB BID ml 11/21/18 05/10/19 History mg/mL eye drops insulin glargine 100 unit/mL (3 See Rx Instructions .ROUTE 11/21/18 05/10/19 History mL) subcutaneous pen .COMPLEX #4 ml latanoprost 0.005 % eye drops 1 drops OP HS ml 11/21/18 05/10/19 History multivitamin 1 tab PO DAILY 11/21/18 05/10/19 History niacin 500 mg tablet,extended 500 mg PO HS #90 tab 11/21/18 05/10/19 History release blood sugar diagnostic #10 ea 01/23/19 03/23/19 History pen needle, diabetic 32 gauge x #2 box 02/09/19 03/23/19 Rx " simvastatin 20 mg tablet 20 mg PO DAILY #90 tab 03/05/19 05/10/19 Rx cholecalciferol (vitamin D3) 2,000 2,000 units PO Q OTHER DAY tab 03/18/19 05/10/19 History unit tablet metformin 1,000 mg tablet 1,000 mg PO BID #180 tab 03/26/19 05/10/19 Rx aspirin [Aspir-81] 81 mg PO DAILY 05/10/19 05/10/19 History Past Med/Surg History Medical History BPH (benign prostatic hyperplasia) (Resolved) Diabetes (Chronic) Diabetes mellitus Dyslipidemia Hyperlipidemia (Chronic) Hypertension Hypertension, benign (Chronic) 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 Type 2 diabetes mellitus (Chronic) Vitamin D deficiency (Chronic) Surgical History S/P cataract extraction Bilateral S/P TURP Family History Mother No acute medical problems Father Prostate cancer Asthma Social History Preferred Language: Wolof Communication Ability: Effective Visual Impairment: No Limitations Hearing Ability: Use of Hearing Aid Rodbuster Required: No Beliefs That Will Affect Care: None marital status: Current Living Situation: Spouse Current Living Situation Comment: current occupational status: retired Other Information That Helps Us Care for You: No Feels Safe at Home: Yes Safety Concerns: Feels Safe At This Time Smoking Status: Former smoker Smoking End Date: 1959 ; Second Hand Exposure: No ; Tobacco Cessation Education Requested by Patient: No Hx Alcohol Use: Yes Alcohol type: beer Alcohol Intake Frequency: Rarely Hx Substance Use: No Childhood Exposure to Second-Hand Smoke: Yes Dental Care, Regularly: Yes Physical Activity Frequency: 3-4 Times per Week Seatbelt Use: always Sunscreen Use: No Review of Systems Review of Systems: Constitutional; denies fevers, chills, night sweats HEENT; denies sore throat, runny nose, ear pain CV; denies chest pain, shortness of breath, palpitation Respiratory; denies wheezing, cough Abdomen; generalized epigastric abdominal pain, 4 episodes of emesis tonight, no diarrhea ; denies any burning with urination or increased frequency Physical Exam Constitutional: WD/WN, vitals as above Eyes: PERRL, conjunctivae normal, anicteric sclerae ENMT: external ear and nose normal, oropharynx normal Neck: trachea midline, no thyromegaly Respiratory: normal respiratory effort, lungs clear to auscultation Cardiovascular: RRR, no murmur, no edema Gastrointestinal (Abdomen): Inspection/Auscultation: abdomen normal to inspection and normal bowel sounds; abdomen not distended Percussion/Palpation: + abdomen tender (Mild epigastric tenderness with palpation); no guarding, abdomen not rigid and + abdomen not soft Results & Data Vital Signs (Past 12 Hours) Vital Signs Temp Pulse Resp BP Pulse Ox 05/11/19 00:00 68 17 138/67 90 05/10/19 23:00 69 17 141/68 H 05/10/19 22:00 66 18 141/81 H 92 05/10/19 21:04 70 20 166/86 H 91 05/10/19 21:00 90 05/10/19 20:45 36.4 C L 76 20 175/73 H 95 Diagnostic Findings DEMI STANLEY 88 M 1930 [facility] [place] [phone] CT Scan Report Patient: DEMI STANLEYAdmit Date: 05/10/19 MR#: [id number]: [address] [facility] Acct ID:[id number]: Date: [address] [place] [address] Zip: [place] [address] Age: 88Location: ED Sex: M Room/Bed: Att Phy:Diagnosis: PAIN IN ABD FOR HOUR, THROWING UP Marisa Phy: Len Jack MDService Date: 05/10/19 [facility] Phy:Interpreting Phy: Eloy Reynolds MD Admit Phy: Ordering Phy: Nj García M.D. cc: ~ CT OF THE ABDOMEN AND PELVIS WITH CONTRAST CLINICAL HISTORY: Abdominal pain and vomiting. COMPARISON STUDY: Abdominal ultrasound December 07, 2013. TECHNIQUE: Following IV administration of 89 mL of Optiray-320, axial images of the abdomen and pelvis were obtained from the lung bases to the proximal femurs. Images were reviewed in the axial, sagittal, and coronal planes. IV contrast was administered without complication. Automated exposure control was utilized for the study. A dose lowering technique was utilized adhering to the principles of ALARA. CT DOSE: 745.55 mGycm FINDINGS: Opacities within the lower lungs reflect atelectasis. No pneumatosis, free air or portal venous gas is present. The liver, spleen, adrenal glands, right kidney and pancreas are unremarkable. There is no biliary or pancreatic ductal dilatation. There are gallstones within the gallbladder. There is mild gallbladder wall thickening. The gallbladder is mildly distended. There is slight infiltration within the ish hepatis. There is no hydronephrosis. A tiny 7 mm lesion within the midpole of the left kidney measures above water a ttenuation. Chronic diverticulosis is noted without evidence for acute diverticulitis. The appendix is normal. Caliber and wall thickness of small and large bowel are normal. Major vasculature is patent. Moderate enlargement of the prostate is noted. There is no hydronephrosis. There are no suspicious osseous lesions. IMPRESSION: 1. Cholelithiasis, mild gallbladder wall thickening and possible adjacent infiltration. Acute cholecystitis is favored. A hepatobiliary scan could be obtained as indicated. No biliary ductal dilatation. 2. 7 mm lesion within the midpole of the left kidney which is too small to characterize. This could reflect a small solid renal lesion or complex cyst. A follow-up renal protocol CT in 6 months is recommended. ACT 112: Positive. There are findings on this exam that require communication between the performing entity and the patient following Patient Test Result Information Act ([place] Act 112) guidelines. Electronically signed by: Eloy Reynolds M.D. 05/10/2019 10:28 PM Dictated: 05/10/19 2219 Transcribed: 05/10/19 2219 Ultrasound of gallbladder also obtained, awaiting read Code Status & VTE Plan VTE Prophylaxis Plan VTE Prophylaxis will be ordered: Yes Supervising Physician Co-Signing Physician Notes Attending addendum: I have physically seen this patient, have supervised the medical residents activities, and agree with the H&P unless as otherwise noted. Assessment and Plan: Acute cholecystitis- NPO Admit to general surgical floor. Ceftriaxone 2 g IV daily, Flagyl 500 mg IV every 8 hours. NSS@125 mils per hour. HIDA scan NM. Consult general surgery. Diabetes mellitus- Reduce Lantus to half dose while n.p.o. Patient Accu-Cheks before meals and at bedtime with NovoLog coverage per scale. Remainder of orders and notations as noted. 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
[2019-05-11] MEDS ORDERED: ONDANSETRON INJ 2 MG/ML 2 ML VIAL IV PRN ×3 (02:05→07:19)
[2019-05-11] MEDS ORDERED: MoRPHine SULFATE 2 MG/ML CARP IV PRN (02:05)
[2019-05-11] MEDS ORDERED: ACETAMINOPHEN 325 MG TAB PO PRN (02:05)
[2019-05-11] MEDS ORDERED: CARBOHYDRATES FOR HYPOGLYCEMIA PO PRN (02:30)
[2019-05-11] MEDS ORDERED: GLUCOSE 40% GEL 15 GM TUBE PO PRN (02:30)
[2019-05-11] MEDS ORDERED: DEXTROSE 50% 50 ML SYRINGE IV PRN (02:30)
[2019-05-11] MEDS ORDERED: GLUCOSE 10 TABS/TUBE PO PRN (02:30)
[2019-05-11] MEDS ORDERED: GLUCAGON FOR INJ 1 MG VIAL SQ PRN (02:30)
[2019-05-11] MEDS: SODIUM CHLORIDE 0.9% 500 ML IV SCH (02:34)
[2019-05-11 02:44] LABS: Basophils # (auto) 0.03 K/uL (0-0.2); Basophils % (auto) 0.2 %; Eosinophils # (auto) 0.05 K/uL (0-0.5); Eosinophils % (auto) 0.4 %; Hematocrit (blood only) 40.5 % (42-52); Hemoglobin 13.7 g/dL (14.0-18.0); Immature Granulocytes # (auto) 0.04 K/uL (0.00-0.02); Immature Granulocytes % (auto) 0.3 %; Lymphocytes # (auto) 1.77 K/uL (1.2-3.4); Lymphocytes % (auto) 13.2 %; Mean Corpuscular Hemoglobin 30.2 pg (25-34); Mean Corpuscular Hgb Conc 33.8 g/dL (32-36); Mean Corpuscular Volume 89.2 fL (80-100); Mean Platelet Volume 9.5 fL (7.4-10.4); Monocytes # (auto) 1.13 K/uL (0.11-0.59); Monocytes % (auto) 8.4 %; Neutrophils # (auto) 10.38 K/uL (1.4-6.5); Neutrophils % (auto) 77.5 %; Platelet Count 260 K/uL (130-400); RDW Coefficient of Variation 13.6 % (11.5-14.5); RDW Standard Deviation 44.7 fL (36.4-46.3); Red Blood Count 4.54 M/uL (4.7-6.1)
[2019-05-11] MEDS ORDERED: SODIUM CHLORIDE 0.9% 1000ML 1,000 ML IV SCH (02:45)
[2019-05-11 03:01] LABS: Albumin Level 3.4 gm/dl (3.4-5.0); BUN Creatinine Ratio 21.6 (10-20); Calcium 8.7 mg/dl (8.5-10.1); Creatinine Clr Calc Pharmacy 55.4 ml/min; Est GFR (African American) 90.8; Est GFR (Non-African American) 78.3; Potassium 4.1 mmol/L (3.5-5.1)
[2019-05-11 03:05] LABS: Bilirubin,Total 0.3 mg/dl (0.2-1); Globulin 3.3 gm/dl (2.5-4.0); Total Protein 6.7 gm/dl (6.4-8.2)
[2019-05-11] MEDS ORDERED: INSULIN ASPART 100 UNITS/ML 3 ML PEN SC SCH ×2 (06:00→07:30)
--- NOTE | 2019-05-11 06:09 | Surgery Consultation ---
Date of Consultation May 11, 2019 Assessment & Plan (1) Acute cholecystitis: This patient's history, physical exam, laboratory evaluation and imaging studies are all indicative of early acute cholecystitis. Liver function tests have been normal. I recommended a laparoscopic cholecystectomy. I explained the possible need to convert to an open procedure. I described some of the possible complications and answered his questions and he has signed a consent form. Present on Admission?: Yes History of Present Illness Reason for Consultation: Abdominal pain and early cholecystitis Requesting Physician: Yemi Carmichael MD Attending Physician: Yemi Carmichael MD History of Present Illness I been asked by Dr. Carmichael to see this 88-year-old male who presented to the emergency room with abdominal pain with nausea and vomiting. The patient states that he ate supper last night and at about 4:00 he began to develop abdominal pain that was located mostly in the upper abdomen with the right side slightly predominating. The pain became quite sharp. He then developed nausea and had about 5 episodes of vomiting. There was no hematemesis. He has no history of peptic ulcer disease. His bowel habits have been normal. He has had no diarrhea, constipation, melena or hematochezia. He denies dysuria and hematuria. He had no fever or chills with this. He is never had similar abdominal pain. Allergies Allergy/AdvReac Type Severity Reaction Status Date / Time naproxen Allergy Intermediate LIPS & Verified 05/10/19 21:58 CHEEKS SWELL Sulfa (Sulfonamide Allergy Mild mild Verified 05/10/19 21:58 Antibiotics) family history Home Medications Home Medications Medication Instructions Recorded Confirmed Type amlodipine 5 mg tablet 5 mg PO DAILY #90 tab 11/09/18 05/10/19 Rx dorzolamide 22.3 mg-timolol 6.8 1 drp OPB BID ml 11/21/18 05/10/19 History mg/mL eye drops insulin glargine 100 unit/mL (3 See Rx Instructions .ROUTE 11/21/18 05/10/19 History mL) subcutaneous pen .COMPLEX #4 ml latanoprost 0.005 % eye drops 1 drops OP HS ml 11/21/18 05/10/19 History multivitamin 1 tab PO DAILY 11/21/18 05/10/19 History niacin 500 mg tablet,extended 500 mg PO HS #90 tab 11/21/18 05/10/19 History release blood sugar diagnostic #10 ea 01/23/19 03/23/19 History pen needle, diabetic 32 gauge x #2 box 02/09/19 03/23/19 Rx " simvastatin 20 mg tablet 20 mg PO DAILY #90 tab 03/05/19 05/10/19 Rx cholecalciferol (vitamin D3) 2,000 2,000 units PO Q OTHER DAY tab 03/18/19 05/10/19 History unit tablet metformin 1,000 mg tablet 1,000 mg PO BID #180 tab 03/26/19 05/10/19 Rx aspirin [Aspir-81] 81 mg PO DAILY 05/10/19 05/10/19 History Patient History Medical History BPH (benign prostatic hyperplasia) (Resolved) Diabetes (Chronic) Diabetes mellitus Dyslipidemia Hyperlipidemia (Chronic) Hypertension Hypertension, benign (Chronic) 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 Type 2 diabetes mellitus (Chronic) Vitamin D deficiency (Chronic) Surgical History (Updated 05/11/19 @ 06:07 by Mina Scott MD) S/P cataract extraction Bilateral S/P TURP Family History Mother No acute medical problems Father Prostate cancer Asthma Social History Preferred Language: Chinese Communication Ability: Effective Visual Impairment: No Limitations Hearing Ability: Use of Hearing Aid Credit Relationship Manager Required: No Beliefs That Will Affect Care: None marital status: Current Living Situation: Spouse Current Living Situation Comment: current occupational status: retired Other Information That Helps Us Care for You: No Feels Safe at Home: Yes Safety Concerns: Feels Safe At This Time Smoking Status: Former smoker Smoking End Date: 1959 ; Second Hand Exposure: No ; Tobacco Cessation Education Requested by Patient: No Hx Alcohol Use: Yes Alcohol type: beer Alcohol Intake Frequency: Rarely Hx Substance Use: No Childhood Exposure to Second-Hand Smoke: Yes Dental Care, Regularly: Yes Physical Activity Frequency: 3-4 Times per Week Seatbelt Use: always Sunscreen Use: No Physical Exam Constitutional: no acute distress Respiratory: normal respiratory effort, lungs clear to auscultation Cardiovascular: Rate/Rhythm: regular rate and regular rhythm Gastrointestinal (Abdomen): Inspection/Auscultation: abdomen normal to inspection; abdomen not distended Percussion/Palpation: + abdomen tender and abdomen soft Skin: no rashes, warm and dry Lymphatic: no cervical lymphadenopathy Results & Data Vital Signs (Past 12 Hours) Vital Signs Temp Pulse Pulse Resp BP BP Pulse Ox 05/11/19 02:10 36.2 C L 72 18 139/81 93 05/11/19 01:00 68 20 157/71 H 92 05/11/19 00:00 68 17 138/67 90 05/10/19 23:00 69 17 141/68 H 05/10/19 22:00 66 18 141/81 H 92 05/10/19 21:04 70 20 166/86 H 91 05/10/19 21:00 90 05/10/19 20:45 36.4 C L 76 20 175/73 H 95 Laboratory Results 05/11/19 05/11/19 05/11/19 Range/Units 02:32 02:32 02:08 WBC 13.40 H (4.8-10.8) K/uL RBC 4.54 L (4.7-6.1) M/uL Hgb 13.7 L (14.0-18.0) g/dL Hct 40.5 L (42-52) % MCV 89.2 (80-100) fL MCH 30.2 (25-34) pg MCHC 33.8 (32-36) g/dL RDW Std Deviation 44.7 (36.4-46.3) fL RDW Coeff of Natasha 13.6 (11.5-14.5) % Plt Count 260 (130-400) K/uL MPV 9.5 (7.4-10.4) fL Immature Gran % (Auto) 0.3 % Neut % (Auto) 77.5 % Lymph % (Auto) 13.2 % [place] % (Auto) 8.4 % Eos % (Auto) 0.4 % Baso % (Auto) 0.2 % Immature Gran # (Auto) 0.04 H (0.00-0.02) K/uL Neut # (Auto) 10.38 H (1.4-6.5) K/uL Lymph # (Auto) 1.77 (1.2-3.4) K/uL [place] # (Auto) 1.13 H (0.11-0.59) K/uL Eos # (Auto) 0.05 (0-0.5) K/uL Baso # (Auto) 0.03 (0-0.2) K/uL PT (9.0-12.0) Seconds INR (0.9-1.1) APTT (21.0-31.0) Seconds PTT Ratio Sodium 136 (136-145) mmol/L Potassium 4.1 (3.5-5.1) mmol/L Chloride 103 (98-107) mmol/L Carbon Dioxide 28 (21-32) mmol/L Anion Gap 5.0 (3-11) BUN 18 (7-18) mg/dl Creatinine 0.85 (0.6-1.4) mg/dl Est Cr Clr Drug Dosing 55.4 ml/min Est GFR ( Amer) 90.8 Est GFR (Non-Af Amer) 78.3 BUN/Creatinine Ratio 21.6 H (10-20) Glucose 166 H (70-99) mg/dl POC Glucose 161 H (70-99) Lactate (0.4-2.0) mmol/L Calcium 8.7 (8.5-10.1) mg/dl Total Bilirubin 0.3 (0.2-1) mg/dl Direct Bilirubin (0-0.2) mg/dl AST 11 L (15-37) U/L ALT 11 L (12-78) U/L Alkaline Phosphatase 50 (45-117) U/L Troponin I (0-0.045) ng/ml Total Protein 6.7 D (6.4-8.2) gm/dl Albumin 3.4 (3.4-5.0) gm/dl Globulin 3.3 (2.5-4.0) gm/dl Albumin/Globulin Ratio 1.0 (0.9-2) Lipase (73-393) U/L Urine Color Urine Appearance (Clear) Urine pH (4.5-7.5) Ur Specific Eros (1.000-1.030) Urine Protein (Negative) Urine Glucose (UA) (Negative) Urine Ketones (Negative) Urine Blood (Negative) Urine Nitrite (Negative) Urine Bilirubin (Negative) Urine Urobilinogen (Negative) Ur Leukocyte Esterase (Negative) Urine WBC (Auto) (0-5) /hpf Urine RBC (Auto) (0-4) /hpf U Hyaline Cast (Auto) (0-5) /lpf U Epithel Cells (Auto) (0-5) /lpf Urine Bacteria (Auto) (Negative) 05/10/19 05/10/19 05/10/19 Range/Units 22:25 21:11 21:11 WBC (4.8-10.8) K/uL RBC (4.7-6.1) M/uL Hgb (14.0-18.0) g/dL Hct (42-52) % MCV (80-100) fL MCH (25-34) pg MCHC (32-36) g/dL RDW Std Deviation (36.4-46.3) fL RDW Coeff of Natasha (11.5-14.5) % Plt Count (130-400) K/uL MPV (7.4-10.4) fL Immature Gran % (Auto) % Neut % (Auto) % Lymph % (Auto) % [place] % (Auto) % Eos % (Auto) % Baso % (Auto) % Immature Gran # (Auto) (0.00-0.02) K/uL Neut # (Auto) (1.4-6.5) K/uL Lymph # (Auto) (1.2-3.4) K/uL [place] # (Auto) (0.11-0.59) K/uL Eos # (Auto) (0-0.5) K/uL Baso # (Auto) (0-0.2) K/uL PT 10.4 (9.0-12.0) Seconds INR 1.0 (0.9-1.1) APTT 40.2 H (21.0-31.0) Seconds PTT Ratio 1.5 Sodium (136-145) mmol/L Potassium (3.5-5.1) mmol/L Chloride (98-107) mmol/L Carbon Dioxide (21-32) mmol/L Anion Gap (3-11) BUN (7-18) mg/dl Creatinine (0.6-1.4) mg/dl Est Cr Clr Drug Dosing ml/min Est GFR ( Amer) Est GFR (Non-Af Amer) BUN/Creatinine Ratio (10-20) Glucose (70-99) mg/dl POC Glucose (70-99) Lactate 1.2 (0.4-2.0) mmol/L Calcium (8.5-10.1) mg/dl Total Bilirubin (0.2-1) mg/dl Direct Bilirubin (0-0.2) mg/dl AST (15-37) U/L ALT (12-78) U/L Alkaline Phosphatase (45-117) U/L Troponin I (0-0.045) ng/ml Total Protein (6.4-8.2) gm/dl Albumin (3.4-5.0) gm/dl Globulin (2.5-4.0) gm/dl Albumin/Globulin Ratio (0.9-2) Lipase (73-393) U/L Urine Color Yellow Urine Appearance Turbid A (Clear) Urine pH 8.0 H (4.5-7.5) Ur Specific Eros 1.043 H (1.000-1.030) Urine Protein Negative (Negative) Urine Glucose (UA) 2+ H (Negative) Urine Ketones Trace H (Negative) Urine Blood Negative (Negative) Urine Nitrite Negative (Negative) Urine Bilirubin Negative (Negative) Urine Urobilinogen Negative (Negative) Ur Leukocyte Esterase Negative (Negative) Urine WBC (Auto) 1-5 (0-5) /hpf Urine RBC (Auto) 5-10 H (0-4) /hpf U Hyaline Cast (Auto) 1-5 (0-5) /lpf U Epithel Cells (Auto) 10-20 H (0-5) /lpf Urine Bacteria (Auto) Negative (Negative) 05/10/19 05/10/19 Range/Units 21:11 21:11 WBC 14.33 H (4.8-10.8) K/uL RBC 5.08 (4.7-6.1) M/uL Hgb 15.5 (14.0-18.0) g/dL Hct 45.6 (42-52) % MCV 89.8 (80-100) fL MCH 30.5 (25-34) pg MCHC 34.0 (32-36) g/dL RDW Std Deviation 44.4 (36.4-46.3) fL RDW Coeff of Natasha 13.5 (11.5-14.5) % Plt Count 298 (130-400) K/uL MPV 9.8 (7.4-10.4) fL Immature Gran % (Auto) 0.4 % Neut % (Auto) 83.1 % Lymph % (Auto) 8.6 % [place] % (Auto) 6.4 % Eos % (Auto) 1.2 % Baso % (Auto) 0.3 % Immature Gran # (Auto) 0.06 H (0.00-0.02) K/uL Neut # (Auto) 11.92 H (1.4-6.5) K/uL Lymph # (Auto) 1.23 (1.2-3.4) K/uL [place] # (Auto) 0.91 H (0.11-0.59) K/uL Eos # (Auto) 0.17 (0-0.5) K/uL Baso # (Auto) 0.04 (0-0.2) K/uL PT (9.0-12.0) Seconds INR (0.9-1.1) APTT (21.0-31.0) Seconds PTT Ratio Sodium 134 L (136-145) mmol/L Potassium 4.1 (3.5-5.1) mmol/L Chloride 99 (98-107) mmol/L Carbon Dioxide 30 (21-32) mmol/L Anion Gap 4.0 (3-11) BUN 19 H (7-18) mg/dl Creatinine 1.05 (0.6-1.4) mg/dl Est Cr Clr Drug Dosing 45.2 ml/min Est GFR ( Amer) 73.6 Est GFR (Non-Af Amer) 63.5 BUN/Creatinine Ratio 18.1 (10-20) Glucose 220 H (70-99) mg/dl POC Glucose (70-99) Lactate (0.4-2.0) mmol/L Calcium 9.6 (8.5-10.1) mg/dl Total Bilirubin 0.4 (0.2-1) mg/dl Direct Bilirubin < 0.1 (0-0.2) mg/dl AST 16 (15-37) U/L ALT 12 (12-78) U/L Alkaline Phosphatase 65 (45-117) U/L Troponin I < 0.015 (0-0.045) ng/ml Total Protein 8.6 H (6.4-8.2) gm/dl Albumin 4.4 (3.4-5.0) gm/dl Globulin (2.5-4.0) gm/dl Albumin/Globulin Ratio (0.9-2) Lipase 152 (73-393) U/L Urine Color Urine Appearance (Clear) Urine pH (4.5-7.5) Ur Specific Eros (1.000-1.030) Urine Protein (Negative) Urine Glucose (UA) (Negative) Urine Ketones (Negative) Urine Blood (Negative) Urine Nitrite (Negative) Urine Bilirubin (Negative) Urine Urobilinogen (Negative) Ur Leukocyte Esterase (Negative) Urine WBC (Auto) (0-5) /hpf Urine RBC (Auto) (0-4) /hpf U Hyaline Cast (Auto) (0-5) /lpf U Epithel Cells (Auto) (0-5) /lpf Urine Bacteria (Auto) (Negative) Diagnostic Findings CT OF THE ABDOMEN AND PELVIS WITH CONTRAST CLINICAL HISTORY: Abdominal pain and vomiting. COMPARISON STUDY: Abdominal ultrasound December 07, 2013. TECHNIQUE: Following IV administration of 89 mL of Optiray-320, axial images of the abdomen and pelvis were obtained from the lung bases to the proximal femurs. Images were reviewed in the axial, sagittal, and coronal planes. IV contrast was administered without complication. Automated exposure control was utilized for the study. A dose lowering technique was utilized adhering to the principles of ALARA. CT DOSE: 745.55 mGycm FINDINGS: Opacities within the lower lungs reflect atelectasis. No pneumatosis, free air or portal venous gas is present. The liver, spleen, adrenal glands, right kidney and pancreas are unremarkable. There is no biliary or pancreatic ductal dilatation. There are gallstones within the gallbladder. There is mild gallbladder wall thickening. The gallbladder is mildly distended. There is slight infiltration within the ish hepatis. There is no hydronephrosis. A tiny 7 mm lesion within the midpole of the left kidney measures above water attenuation. Chronic diverticulosis is noted without evidence for acute diverticulitis. The appendix is normal. Caliber and wall thickness of small and large bowel are normal. Major vasculature is patent. Moderate enlargement of the prostate is noted. There is no hydronephrosis. There are no suspicious osseous lesions. IMPRESSION: 1. Cholelithiasis, mild gallbladder wall thickening and possible adjacent in filtration. Acute cholecystitis is favored. A hepatobiliary scan could be obtained as indicated. No biliary ductal dilatation. 2. 7 mm lesion within the midpole of the left kidney which is too small to characterize. This could reflect a small solid renal lesion or complex cyst. A follow-up renal protocol CT in 6 months is recommended. Ultrasound of gallbladder Demonstrates a mildly dilated gallbladder with mild wall thickening and trace pericholecystic fluid. The gallbladder contains sludge. There is no intra-or extrahepatic biliary ductal dilatation with a common bile duct measuring 4 mm
[2019-05-11] MEDS ORDERED: MIDAZOLAM HCL 1 MG/ML 2ML VIAL ONE (06:57)
[2019-05-11] MEDS ORDERED: fentaNYL citrate 100 MCG/2 ML VIAL ONE ×2 (06:58→07:54)
[2019-05-11] MEDS ORDERED: LIDOCAINE HCL 2% 2 ML VIAL/AMP(20MG/ML) INFIL ONE (07:01)
[2019-05-11] MEDS ORDERED: PROPOFOL IV EMULSION 10 MG/ML 20 ML VIAL IV ONE (07:01)
[2019-05-11] MEDS ORDERED: ONDANSETRON INJ 2 MG/ML 2 ML VIAL ONE (07:02)
[2019-05-11] MEDS ORDERED: ROCURONIUM BROMIDE 10 MG/ML 5 ML VIAL ONE (07:02)
--- NOTE | 2019-05-11 07:10 | Anesthesiology Consultation ---
Date of Service May 11, 2019 Assessment & Plan (1) Encounter for pre-operative examination: Chart Review Chart Review: Acceptable Risk for Surgery History Surgery Operation Date: 05/11/19 07:15 Proposed Procedures p Laparoscopic Cholecystectomy - Mina Scott MD Height/Weight Height: 5 ft 3 in Weight: 74.6 kg Allergies Allergy/AdvReac Type Severity Reaction Status Date / Time naproxen Allergy Intermediate LIPS & Verified 05/10/19 21:58 CHEEKS SWELL Sulfa (Sulfonamide Allergy Mild mild Verified 05/10/19 21:58 Antibiotics) family history Medications Home Medications Medication Instructions Recorded Confirmed Last Taken amlodipine 5 mg tablet 5 mg PO DAILY #90 tab 11/09/18 05/10/19 Unknown dorzolamide 22.3 mg-timolol 6.8 1 drp OPB BID ml 11/21/18 05/10/19 Unknown mg/mL eye drops insulin glargine 100 unit/mL (3 See Rx Instructions .ROUTE 11/21/18 05/10/19 Unknown mL) subcutaneous pen .COMPLEX #4 ml latanoprost 0.005 % eye drops 1 drops OP HS ml 11/21/18 05/10/19 Unknown multivitamin 1 tab PO DAILY 11/21/18 05/10/19 Unknown niacin 500 mg tablet,extended 500 mg PO HS #90 tab 11/21/18 05/10/19 Unknown release blood sugar diagnostic #10 ea 01/23/19 03/23/19 Unknown pen needle, diabetic 32 gauge x #2 box 02/09/19 03/23/19 Unknown 32" simvastatin 20 mg tablet 20 mg PO DAILY #90 tab 03/05/19 05/10/19 Unknown cholecalciferol (vitamin D3) 2,000 2,000 units PO Q OTHER DAY tab 03/18/19 05/10/19 Unknown unit tablet metformin 1,000 mg tablet 1,000 mg PO BID #180 tab 03/26/19 05/10/19 Unknown aspirin [Aspir-81] 81 mg PO DAILY 05/10/19 05/10/19 Unknown Active Medications Generic Name Dose Route Start Last Admin Trade Name Freq PRN Reason Stop Dose Admin Sodium Chloride 1,000 mls @ 125 mls/hr 05/11/19 02:45 05/11/19 02:45 Nss 1000ml IV 05/11/19 10:44 125 mls/hr .Q8H MIGUEL ANGEL Administration Insulin Aspart 0 units 05/11/19 06:00 05/11/19 06:14 Novolog Flexpen SC 06/10/19 05:59 Not Given Q6 MIGUEL ANGEL Ioversol 93 ml 05/10/19 22:06 05/10/19 22:07 Optiray 320 100ml IV 05/14/19 22:05 1 ml ONCE PRN Administration Interaction Checking NPO Date Last Intake of Fluids: 05/10/19 Time Last Intake of Fluids: 19:00 Last Intake of Fluids Comment: ice chips Date Last Intake of Solids: 05/10/19 Time Last Intake of Solids: 19:00 Past Medical History Medical History BPH (benign prostatic hyperplasia) (Resolved) Diabetes (Chronic) Diabetes mellitus Dyslipidemia Hyperlipidemia (Chronic) Hypertension Hypertension, benign (Chronic) 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 Type 2 diabetes mellitus (Chronic) Vitamin D deficiency (Chronic) Past Family History Family History Mother No acute medical problems Father Prostate cancer Asthma Past Surgical History Surgical History S/P cataract extraction Bilateral S/P TURP Social History Smoking Status: Former smoker Smoking End Date: 1958 Hx Alcohol Use: Yes Alcohol type: beer alcohol intake frequency: holidays/special occasions only Hx Substance Use: No substance use type: does not use Physical Exam Vital Signs Last Vital Signs Temp 37.3 C 05/11/19 06:28 Pulse 76 05/11/19 06:28 Resp 18 05/11/19 06:28 BP 168/80 H 05/11/19 06:28 Pulse Ox 93 05/11/19 06:28 Testing Laboratory Results 05/11/19 02:32 05/11/19 02:32 PT 10.4 Seconds (9.0-12.0) 05/10/19 21:11 INR 1.0 (0.9-1.1) 05/10/19 21:11 APTT 40.2 Seconds (21.0-31.0) H 05/10/19 21:11 Urine Color Yellow 05/10/19 22:25 Urine Appearance Turbid (Clear) A 05/10/19 22:25 Urine pH 8.0 (4.5-7.5) H 05/10/19 22:25 Ur Specific [place] 1.043 (1.000-1.030) H 05/10/19 22:25 Urine Protein Negative (Negative) 05/10/19 22:25 Urine Glucose (UA) 2+ (Negative) H 05/10/19 22:25 Urine Ketones Trace (Negative) H 05/10/19 22:25 Urine Nitrite Negative (Negative) 05/10/19 22:25 Ur Leukocyte Esterase Negative (Negative) 05/10/19 22:25 Urine WBC (Auto) 1-5 /hpf (0-5) 05/10/19 22:25 Urine RBC (Auto) 5-10 /hpf (0-4) H 05/10/19 22:25 U Hyaline Cast (Auto) 1-5 /lpf (0-5) 05/10/19 22:25 U Epithel Cells (Auto) 10-20 /lpf (0-5) H 05/10/19 22:25 Urine Bacteria (Auto) Negative (Negative) 05/10/19 22:25 05/11/19 05/11/19 06:06 02:08 POC Glucose 130 H 161 H Electrocardiogram Date: 05/10/19 Findings: + NSR @ (72 PAC's) and + NSST changes Chest X-Ray Date: 05/10/19 Findings: + NAD and + atelectasis (mild)
[2019-05-11] MEDS ORDERED: BUPIVACAINE 0.5 % 5 MG/1 ML MPF 30ML VIAL ONE (07:11)
[2019-05-11] MEDS ORDERED: CEFAZOLIN 250 MG/ML 1 GM VIAL ONE (07:11)
[2019-05-11] MEDS ORDERED: LABETALOL HCL IV 5 MG/ML 20ML IV PRN ×2 (07:11→07:19)
[2019-05-11] MEDS ORDERED: CONRAY 60% 50 ML VIAL ONE (07:11)
[2019-05-11] MEDS ORDERED: HEPARIN (PORCINE) 1000 UNIT/ML 10 ML (CATH LAB USE ONLY) ONE (07:11)
[2019-05-11] MEDS ORDERED: HYDROmorphone INJ 1 MG/ML SYRINGE IV PRN ×2 (07:11→07:19)
[2019-05-11] MEDS ORDERED: ATROPINE SULFATE 0.1 MG/ML 10ML SYR IV PRN ×2 (07:11→07:19)
--- NOTE | 2019-05-11 07:24 | Ultrasound Report ---
ABDOMINAL ULTRASOUND, RIGHT UPPER QUADRANT HISTORY: Right upper quadrant pain. Abnormal CT.. COMPARISON: Abdomen and pelvis CT 05/10/2019. FINDINGS: Pancreas: Obscured by overlying bowel gas. Liver: Unremarkable. Gallbladder: Gallbladder wall thickening and trace pericholecystic fluid. There are small stone/sludg e within the gallbladder. CBD: 4 mm. Right kidney: No hydronephrosis. IMPRESSION: Mild gallbladder wall thickening, trace pericholecystic fluid, and small stone/sludge within the gall bladder. This is concerning for acute cholecystitis. Clinical correlation recommended. ACT 112: Negative or not required by law. Electronically signed by: Raj Madison M.D. 05/11/2019 7:22 AM
[2019-05-11] MEDS: cefOXitin 2,000 MG in DEXTROSE 5% 50 ML IV SCH ×2 (07:30→07:54)
[2019-05-11] MEDS ORDERED: [UNRECOGNIZED DRUG - OTHER] IV SCH (08:00)
[2019-05-11] MEDS ORDERED: ePHEDrine sulfate 50 MG/ML SYR ONE (08:14)
[2019-05-11] MEDS ORDERED: LABETALOL HCL IV 5 MG/ML 20ML IV ONE (08:14)
[2019-05-11] MEDS ORDERED: GLYCOPYRROLATE 0.2 MG/ML VIAL ONE (08:19)
[2019-05-11] MEDS ORDERED: NEOSTIGMINE METHYLSULFATE 5 MG/5 ML SYR ONE (08:19)
--- NOTE | 2019-05-11 08:35 | Post Operative Brief Note ---
Immediate Post Op Note v1 Date of Surgery May 11, 2019 Pre & Post Diagnosis Operation Date: 05/11/19 07:15 Pre-Op Diagnosis: CHOLECYSTITIS Post-Op Diagnosis: CHOLECYSTITIS I identified the patient and participated in the time-out.: Yes Procedure Operation Date: 05/11/19 07:15 Actual Procedures p Laparoscopic Cholecystectomy - Mina Scott MD Surgeon Mina Scott MD [employer] Laura Mao PA-C Estimated Blood Loss 5 Findings Consistent with Post-Op Diagnosis Specimens Gallbladder and contents Anesthesia Type General Complications none
[2019-05-11] MEDS ORDERED: INSULIN GLARGINE SOLOSTAR 100 UNITS/ML 3 ML PEN SC SCH (09:00)
--- NOTE | 2019-05-11 09:13 | Operative Report ---
DATE OF OPERATION: 05/11/2019 PREOPERATIVE DIAGNOSES: Acute cholecystitis, cholelithiasis. POSTOPERATIVE DIAGNOSES: Acute cholecystitis, cholelithiasis. PROCEDURE: Laparoscopic cholecystectomy. SURGEON: Mina Scott MD OUTCOMES SPECIALIST: Laura Mao PA-C. FINDINGS: The gallbladder wall was mildly thickened. The gallbladder was mildly dilated. The cystic duct was not dilated. There was a lot of edema surrounding the gallbladder and surrounding the cystic duct area. The liver was of normal size and contour. The visible bowel appeared normal. There were a lot of gravel-like 1-2 mm stones within the gallbladder. TECHNIQUE: The patient was given a general anesthetic and the area was prepped and draped in the usual sterile fashion. Transverse incision was made below the umbilicus, carried down through the subcutaneous tissue to the fascia which was grasped with 2 Anuj clamps and incised between. The peritoneum was identified, incised, and the introducer was placed bluntly. The abdomen was then insufflated to a pressure of 15 mmHg with carbon dioxide. The upper midline, midclavicular and anterior axillary introducers were placed under direct vision through small skin incisions. I was able to grasp the gallbladder near the fundus and place upward traction. There were some flimsy adhesions that were taken down using blunt cautery dissection. As I got down to the infundibulum, there were some longer flimsy adhesions of the duodenum. Those were taken down without the use of cautery. I was then able to see the infundibulum and neck of the gallbladder. I began opening the peritoneum on the lateral side, and peeling it towards the common bile duct. I then performed a similar dissection over the anterior infundibulum into the triangle of Calot and peeled thickened lymphatics and thickened peritoneum and connective tissue and fatty tissue. I then dissected the infundibulum and body away from the liver on the lateral side. That allowed better mobility and I was able to separate the attachments of the infundibulum away from the medial side which then helped me to expose the triangle of Calot and identify the cystic duct. I then isolated the cystic duct in 360 degrees. I then performed further dissection behind that and I dissected the infundibulum away from the liver. There was 1 thickened lymphatic that was clamped and divided, further exposing it allowing for more mobility so that I could then elevate the infundibulum and confidently identify the cystic duct gallbladder junction. Two clips were placed on the proximal cystic duct, one near the junction where the gallbladder was divided. Further dissection was then carried out in the triangle of Calot. The cystic artery was identified. It was isolated, clamped twice proximally and once near the gallbladder and divided. The gallbladder was then peeled off the liver bed and in doing so, there was a very small branch of the artery that was encountered in the mid body area which was clamped and divided. The gallbladder was then peeled off the liver bed and that was completed, again using cautery. During the dissection of the graspers created a small hole in the gallbladder and there was some bile leak. The gallbladder was placed into an Endobag and brought out through the upper midline incision where I had opened the gallbladder, removed the remainder of the bile until it could be extracted, but that was accomplished. That introducer was replaced. The liver edge was elevated. The subdiaphragmatic and subhepatic spaces were irrigated and irrigation was removed and that was repeated until the return was clear. The gallbladder bed of the liver was inspected. There were 2 areas with a minimal amount of oozing. This was easily controlled with cautery. This was further irrigated. It was then inspected again and there was no further bleeding. The previously placed clips were intact. The gas was allowed to escape and the introducers were removed. The fascia of the umbilical and upper midline introducer sites was closed with interrupted 0 Vicryl and the skin of all the incisions was closed with 4-0 Monocryl in either an interrupted or running subcuticular fashion. The skin was anesthetized with 0.5% Marcaine. The skin was cleansed, dried, benzoin placed, Steri-Strips applied. Estimated blood loss was 5 mL Sponge, needle and instrument counts were correct prior to closure. The patient tolerated the surgical procedure without complication and was transferred to recovery. I attest to the content of the Intraoperative Record and any orders documented therein. Any exception s are noted below.
--- NOTE | 2019-05-11 09:56 | Anesthesiology Progress Note ---
Date of Service May 11, 2019 Anesthesia Post Procedure Vital Signs Vital Signs: Temp Pulse Pulse Pulse Resp BP BP 05/11/19 09:40 75 20 05/11/19 09:30 77 20 05/11/19 09:20 77 20 05/11/19 09:10 78 15 05/11/19 09:00 75 20 05/11/19 08:51 36.6 C 74 16 05/11/19 06:28 37.3 C 76 18 05/11/19 06:20 36.6 C 72 16 05/11/19 02:10 36.2 C L 72 18 139/81 05/11/19 01:00 68 20 157/71 H 05/11/19 00:00 68 17 138/67 05/10/19 23:00 69 17 141/68 H 05/10/19 22:00 66 18 141/81 H 05/10/19 21:04 70 20 166/86 H 05/10/19 21:00 05/10/19 20:45 36.4 C L 76 20 175/73 H BP Pulse Ox 05/11/19 09:40 127/58 L 91 05/11/19 09:30 143/79 H 94 05/11/19 09:20 139/76 90 05/11/19 09:10 152/65 H 92 05/11/19 09:00 151/69 H 94 05/11/19 08:51 148/75 H 94 05/11/19 06:28 168/80 H 93 05/11/19 06:20 160/82 H 92 05/11/19 02:10 93 05/11/19 01:00 92 05/11/19 00:00 90 05/10/19 23:00 05/10/19 22:00 92 05/10/19 21:04 91 05/10/19 21:00 90 05/10/19 20:45 95 Transfer of Care Handoff Completed per policy Notes Mental Status: alert / awake / arousable Patient Amnestic to Procedure: Yes Nausea / Vomiting: adequately controlled Pain: adequately controlled Airway Patency, RR, SpO2: stable & adequate BP & HR: stable & adequate Hydration State: stable & adequate Anesthetic Complications: no major complications apparent
[2019-05-11] MEDS ORDERED: MoRPHine SULFATE 4 MG/ML 1 ML CARP\\VIAL IV PRN (10:35)
[2019-05-11] MEDS ORDERED: OXYCODONE/ACETAMINOPHEN 5mg/325mg TAB PO PRN (10:35)
[2019-05-11] MEDS ORDERED: Nursing to Pharmacy Communication ONE (10:48)
[2019-05-11] MEDS ORDERED: INSULIN GLARGINE SOLOSTAR 100 UNITS/ML 3 ML PEN SC ONE (11:00)
[2019-05-11] MEDS: SIMVASTATIN 20 MG TAB PO SCH (11:04)
[2019-05-11] MEDS: AMLODIPINE BESYLATE 5 MG TAB PO SCH (11:04)
[2019-05-11] MEDS: DORZOLAMIDE/TIMOLOL 22.3/6.8MG/ML 10 ML BTL OPB SCH ×2 (11:05→19:57)
[2019-05-11] MEDS: metroNIDAZOLE 500 MG/100 ML BAG IV SCH ×2 (11:06→18:29)
[2019-05-11] MEDS: INSULIN ASPART 100 UNITS/ML 3 ML PEN SC SCH ×3 (12:30→20:53)
--- NOTE | 2019-05-11 12:37 | Electrocardiogram Report ---
Test Reason : Blood Pressure : / mmHG Vent. Rate : 072 BPM Atrial Rate : 072 BPM P-R Int : 164 ms QRS Dur : 090 ms QT Int : 382 ms P-R-T Axes : 016 -18 -01 degrees QTc Int : 418 ms Sinus rhythm with Premature atrial complexes Nonspecific T wave abnormality Abnormal ECG When compared with ECG of 05-OCT-2017 01:19, Premature ventricular complexes are no longer Present Premature atrial complexes are now Present Confirmed by Barry Ferguson ([id number]) on 05/11/2019 12:36:58 PM Referred By: REFERRED SELF Confirmed By:Barry Ferguson
[2019-05-11] MEDS ORDERED: COUGH DROP (SUGAR FREE) LOZ 24 LOZ/1 BOX BUCCAL ONE (13:43)
--- NOTE | 2019-05-11 15:25 | Hospitalist Progress Note ---
Date of Service May 11, 2019 Assessment & Plan (1) Acute cholecystitis: - Imaging on admission concerning for acute cholecystitis. - Gen surg consulted, s/p lap heather this morning. - Ceftriaxone and Flagyl for empiric coverage. - Advance to low fat diet post op. - Tylenol, Oxycodone and Morphine prn pain. - Discharge likely on 05/12 pending pain control and AM labs. (2) Hyperlipidemia: - Continue statin as prescribed. (3) Hypertension, benign: - Continue Amlodipine as prescribed. (4) Type 2 diabetes mellitus: - Most recent A1C 7.2 in Mar 2019. - SSI coverage with Lantus 20 units qAM - BG well controlled. (5) Anemia: - Continue to trend daily. (6) DVT prophylaxis: - SCDs; hold pharmacologic ppx due to procedure. Dispo: Med/surg; discharge likely on 05/12. Subjective Pt. is doing well post op. C/o abd pain, has pain meds ordered prn. Review of Systems Review of Systems: All systems reviewed & are unremarkable except as noted in HPI & below Constitutional: no fever, no chills, no fatigue and no weakness Respiratory: no cough, no dyspnea and no dyspnea on exertion Cardiovascular: no chest pain, no palpitations and no edema Gastrointestinal: + abdominal pain and + constipation; no nausea and no vomiting Genitourinary: no difficulty urinating Musculoskeletal: no back pain and no joint pain Integumentary: no non-healing lesions Physical Exam Physical Exam: General: Resting comfortably HEENT: NC/AT; PERRLA with EOMI; Jol[place] conjunctiva, MMM. No erythema of posterior pharynx Neck: Supple and nontender Cardiac: RRR Lungs: CTA bilaterally Abdomen: Bowel normoactive X 4; Nontender to palpation Extremities: Warm. No edema present Neuro: No focal weakness Skin: No rash Results & Data Vital Signs (Past 12 Hours) Vital Signs Temp Pulse Pulse Resp BP Pulse Ox 05/11/19 15:08 37.0 C 74 18 125/76 95 05/11/19 13:40 74 18 144/70 H 95 05/11/19 12:38 92 H 16 131/74 96 05/11/19 11:31 73 18 143/76 H 95 05/11/19 11:02 77 18 151/75 H 94 05/11/19 10:30 36.7 C 77 18 160/82 H 92 05/11/19 10:10 37.1 C 73 21 127/64 92 05/11/19 10:00 37.1 C 73 20 130/51 L 92 05/11/19 09:50 37.1 C 75 20 128/69 91 05/11/19 09:40 75 20 127/58 L 91 05/11/19 09:30 77 20 143/79 H 94 05/11/19 09:20 77 20 139/76 90 05/11/19 09:10 78 15 152/65 H 92 05/11/19 09:00 75 20 151/69 H 94 05/11/19 08:51 36.6 C 74 16 148/75 H 94 05/11/19 06:28 37.3 C 76 18 168/80 H 93 05/11/19 06:20 36.6 C 72 16 160/82 H 92 Laboratory Results 05/11/19 05/11/19 05/11/19 Range/Units 08:54 06:06 02:32 WBC (4.8-10.8) K/uL RBC (4.7-6.1) M/uL Hgb (14.0-18.0) g/dL Hct (42-52) % MCV (80-100) fL MCH (25-34) pg MCHC (32-36) g/dL RDW Std Deviation (36.4-46.3) fL RDW Coeff of Natasha (11.5-14.5) % Plt Count (130-400) K/uL MPV (7.4-10.4) fL Immature Gran % (Auto) % Neut % (Auto) % Lymph % (Auto) % [place] % (Auto) % Eos % (Auto) % Baso % (Auto) % Immature Gran # (Auto) (0.00-0.02) K/uL Neut # (Auto) (1.4-6.5) K/uL Lymph # (Auto) (1.2-3.4) K/uL [place] # (Auto) (0.11-0.59) K/uL Eos # (Auto) (0-0.5) K/uL Baso # (Auto) (0-0.2) K/uL PT (9.0-12.0) Seconds INR (0.9-1.1) APTT (21.0-31.0) Seconds PTT Ratio Sodium 136 (136-145) mmol/L Potassium 4.1 (3.5-5.1) mmol/L Chloride 103 (98-107) mmol/L Carbon Dioxide 28 (21-32) mmol/L Anion Gap 5.0 (3-11) BUN 18 (7-18) mg/dl Creatinine 0.85 (0.6-1.4) mg/dl Est Cr Clr Drug Dosing 55.4 ml/min Est GFR ( Amer) 90.8 Est GFR (Non-Af Amer) 78.3 BUN/Creatinine Ratio 21.6 H (10-20) Glucose 166 H (70-99) mg/dl POC Glucose 162 H 130 H (70-99) Lactate (0.4-2.0) mmol/L Calcium 8.7 (8.5-10.1) mg/dl Total Bilirubin 0.3 (0.2-1) mg/dl Direct Bilirubin (0-0.2) mg/dl AST 11 L (15-37) U/L ALT 11 L (12-78) U/L Alkaline Phosphatase 50 (45-117) U/L Troponin I (0-0.045) ng/ml Total Protein 6.7 D (6.4-8.2) gm/dl Albumin 3.4 (3.4-5.0) gm/dl Globulin 3.3 (2.5-4.0) gm/dl Albumin/Globulin Ratio 1.0 (0.9-2) Lipase (73-393) U/L Urine Color Urine Appearance (Clear) Urine pH (4.5-7.5) Ur Specific [place] (1.000-1.030) Urine Protein (Negative) Urine Glucose (UA) (Negative) Urine Ketones (Negative) Urine Blood (Negative) Urine Nitrite (Negative) Urine Bilirubin (Negative) Urine Urobilinogen (Negative) Ur Leukocyte Esterase (Negative) Urine WBC (Auto) (0-5) /hpf Urine RBC (Auto) (0-4) /hpf U Hyaline Cast (Auto) (0-5) /lpf U Epithel Cells (Auto) (0-5) /lpf Urine Bacteria (Auto) (Negative) 05/11/19 05/11/19 05/10/19 Range/Units 02:32 02:08 22:25 WBC 13.40 H (4.8-10.8) K/uL RBC 4.54 L (4.7-6.1) M/uL Hgb 13.7 L (14.0-18.0) g/dL Hct 40.5 L (42-52) % MCV 89.2 (80-100) fL MCH 30.2 (25-34) pg MCHC 33.8 (32-36) g/dL RDW Std Deviation 44.7 (36.4-46.3) fL RDW Coeff of Natasha 13.6 (11.5-14.5) % Plt Count 260 (130-400) K/uL MPV 9.5 (7.4-10.4) fL Immature Gran % (Auto) 0.3 % Neut % (Auto) 77.5 % Lymph % (Auto) 13.2 % [place] % (Auto) 8.4 % Eos % (Auto) 0.4 % Baso % (Auto) 0.2 % Immature Gran # (Auto) 0.04 H (0.00-0.02) K/uL Neut # (Auto) 10.38 H (1.4-6.5) K/uL Lymph # (Auto) 1.77 (1.2-3.4) K/uL [place] # (Auto) 1.13 H (0.11-0.59) K/uL Eos # (Auto) 0.05 (0-0.5) K/uL Baso # (Auto) 0.03 (0-0.2) K/uL PT (9.0-12.0) Seconds INR (0.9-1.1) APTT (21.0-31.0) Seconds PTT Ratio Sodium (136-145) mmol/L Potassium (3.5-5.1) mmol/L Chloride (98-107) mmol/L Carbon Dioxide (21-32) mmol/L Anion Gap (3-11) BUN (7-18) mg/dl Creatinine (0.6-1.4) mg/dl Est Cr Clr Drug Dosing ml/min Est GFR ( Amer) Est GFR (Non-Af Amer) BUN/Creatinine Ratio (10-20) Glucose (70-99) mg/dl POC Glucose 161 H (70-99) Lactate (0.4-2.0) mmol/L Calcium (8.5-10.1) mg/dl Total Bilirubin (0.2-1) mg/dl Direct Bilirubin (0-0.2) mg/dl AST (15-37) U/L ALT (12-78) U/L Alkaline Phosphatase (45-117) U/L Troponin I (0-0.045) ng/ml Total Protein (6.4-8.2) gm/dl Albumin (3.4-5.0) gm/dl Globulin (2.5-4.0) gm/dl Albumin/Globulin Ratio (0.9-2) Lipase (73-393) U/L Urine Color Yellow Urine Appearance Turbid A (Clear) Urine pH 8.0 H (4.5-7.5) Ur Specific [place] 1.043 H (1.000-1.030) Urine Protein Negative (Negative) Urine Glucose (UA) 2+ H (Negative) Urine Ketones Trace H (Negative) Urine Blood Negative (Negative) Urine Nitrite Negative (Negative) Urine Bilirubin Negative (Negative) Urine Urobilinogen Negative (Negative) Ur Leukocyte Esterase Negative (Negative) Urine WBC (Auto) 1-5 (0-5) /hpf Urine RBC (Auto) 5-10 H (0-4) /hpf U Hyaline Cast (Auto) 1-5 (0-5) /lpf U Epithel Cells (Auto) 10-20 H (0-5) /lpf Urine Bacteria (Auto) Negative (Negative) 05/10/19 05/10/19 05/10/19 Range/Units 21:11 21:11 21:11 WBC (4.8-10.8) K/uL RBC (4.7-6.1) M/uL Hgb (14.0-18.0) g/dL Hct (42-52) % MCV (80-100) fL MCH (25-34) pg MCHC (32-36) g/dL RDW Std Deviation (36.4-46.3) fL RDW Coeff of Natasha (11.5-14.5) % Plt Count (130-400) K/uL MPV (7.4-10.4) fL Immature Gran % (Auto) % Neut % (Auto) % Lymph % (Auto) % [place] % (Auto) % Eos % (Auto) % Baso % (Auto) % Immature Gran # (Auto) (0.00-0.02) K/uL Neut # (Auto) (1.4-6.5) K/uL Lymph # (Auto) (1.2-3.4) K/uL [place] # (Auto) (0.11-0.59) K/uL Eos # (Auto) (0-0.5) K/uL Baso # (Auto) (0-0.2) K/uL PT 10.4 (9.0-12.0) Seconds INR 1.0 (0.9-1.1) APTT 40.2 H (21.0-31.0) Seconds PTT Ratio 1.5 Sodium 134 L (136-145) mmol/L Potassium 4.1 (3.5-5.1) mmol/L Chloride 99 (98-107) mmol/L Carbon Dioxide 30 (21-32) mmol/L Anion Gap 4.0 (3-11) BUN 19 H (7-18) mg/dl Creatinine 1.05 (0.6-1.4) mg/dl Est Cr Clr Drug Dosing 45.2 ml/min Est GFR ( Amer) 73.6 Est GFR (Non-Af Amer) 63.5 BUN/Creatinine Ratio 18.1 (10-20) Glucose 220 H (70-99) mg/dl POC Glucose (70-99) Lactate 1.2 (0.4-2.0) mmol/L Calcium 9.6 (8.5-10.1) mg/dl Total Bilirubin 0.4 (0.2-1) mg/dl Direct Bilirubin < 0.1 (0-0.2) mg/dl AST 16 (15-37) U/L ALT 12 (12-78) U/L Alkaline Phosphatase 65 (45-117) U/L Troponin I < 0.015 (0-0.045) ng/ml Total Protein 8.6 H (6.4-8.2) gm/dl Albumin 4.4 (3.4-5.0) gm/dl Globulin (2.5-4.0) gm/dl Albumin/Globulin Ratio (0.9-2) Lipase 152 (73-393) U/L Urine Color Urine Appearance (Clear) Urine pH (4.5-7.5) Ur Specific [place] (1.000-1.030) Urine Protein (Negative) Urine Glucose (UA) (Negative) Urine Ketones (Negative) Urine Blood (Negative) Urine Nitrite (Negative) Urine Bilirubin (Negative) Urine Urobilinogen (Negative) Ur Leukocyte Esterase (Negative) Urine WBC (Auto) (0-5) /hpf Urine RBC (Auto) (0-4) /hpf U Hyaline Cast (Auto) (0-5) /lpf U Epithel Cells (Auto) (0-5) /lpf Urine Bacteria (Auto) (Negative) 05/10/19 Range/Units 21:11 WBC 14.33 H (4.8-10.8) K/uL RBC 5.08 (4.7-6.1) M/uL Hgb 15.5 (14.0-18.0) g/dL Hct 45.6 (42-52) % MCV 89.8 (80-100) fL MCH 30.5 (25-34) pg MCHC 34.0 (32-36) g/dL RDW Std Deviation 44.4 (36.4-46.3) fL RDW Coeff of Natasha 13.5 (11.5-14.5) % Plt Count 298 (130-400) K/uL MPV 9.8 (7.4-10.4) fL Immature Gran % (Auto) 0.4 % Neut % (Auto) 83.1 % Lymph % (Auto) 8.6 % [place] % (Auto) 6.4 % Eos % (Auto) 1.2 % Baso % (Auto) 0.3 % Immature Gran # (Auto) 0.06 H (0.00-0.02) K/uL Neut # (Auto) 11.92 H (1.4-6.5) K/uL Lymph # (Auto) 1.23 (1.2-3.4) K/uL [place] # (Auto) 0.91 H (0.11-0.59) K/uL Eos # (Auto) 0.17 (0-0.5) K/uL Baso # (Auto) 0.04 (0-0.2) K/uL PT (9.0-12.0) Seconds INR (0.9-1.1) APTT (21.0-31.0) Seconds PTT Ratio Sodium (136-145) mmol/L Potassium (3.5-5.1) mmol/L Chloride (98-107) mmol/L Carbon Dioxide (21-32) mmol/L Anion Gap (3-11) BUN (7-18) mg/dl Creatinine (0.6-1.4) mg/dl Est Cr Clr Drug Dosing ml/min Est GFR ( Amer) Est GFR (Non-Af Amer) BUN/Creatinine Ratio (10-20) Glucose (70-99) mg/dl POC Glucose (70-99) Lactate (0.4-2.0) mmol/L Calcium (8.5-10.1) mg/dl Total Bilirubin (0.2-1) mg/dl Direct Bilirubin (0-0.2) mg/dl AST (15-37) U/L ALT (12-78) U/L Alkaline Phosphatase (45-117) U/L Troponin I (0-0.045) ng/ml Total Protein (6.4-8.2) gm/dl Albumin (3.4-5.0) gm/dl Globulin (2.5-4.0) gm/dl Albumin/Globulin Ratio (0.9-2) Lipase (73-393) U/L Urine Color Urine Appearance (Clear) Urine pH (4.5-7.5) Ur Specific [place] (1.000-1.030) Urine Protein (Negative) Urine Glucose (UA) (Negative) Urine Ketones (Negative) Urine Blood (Negative) Urine Nitrite (Negative) Urine Bilirubin (Negative) Urine Urobilinogen (Negative) Ur Leukocyte Esterase (Negative) Urine WBC (Auto) (0-5) /hpf Urine RBC (Auto) (0-4) /hpf U Hyaline Cast (Auto) (0-5) /lpf U Epithel Cells (Auto) (0-5) /lpf Urine Bacteria (Auto) (Negative) PG Care Time/CCT Total # of Minutes Spent Total Time Spent with Patient: Total time spent is greater than 50% in coordination of care (as documented) at patient's floor/unit and/or counseling patient: (1) Type 2 diabetes mellitus Diabetes mellitus long term care pharmacist insulin use: with nursing home use (2) Hyperlipidemia Hyperlipidemia type: mixed hyperlipidemia Qualified Code(s): E78.2 - Mixed hyperlipidemia
[2019-05-11] MEDS: LATANOPROST 0.005% OP SOLN 2.5 ML BTL OP SCH (19:58)
[2019-05-11] MEDS: cefTRIAXone SODIUM 2,000 MG in DEXTROSE 5% 50 ML IV SCH (20:00)
[2019-05-12] MEDS: metroNIDAZOLE 500 MG/100 ML BAG IV SCH ×3 (03:38→19:31)
--- NOTE | 2019-05-12 03:52 | Billing Data ---
Date of Service May 12, 2019 Coding Level of Care Code 17092 Initial Inpt Care Lvl 2
[2019-05-12 06:11] LABS: Hemoglobin 12.7 g/dL (14.0-18.0); Mean Corpuscular Hemoglobin 29.4 pg (25-34); Mean Corpuscular Hgb Conc 32.6 g/dL (32-36); Mean Corpuscular Volume 90.3 fL (80-100); Mean Platelet Volume 9.9 fL (7.4-10.4); Platelet Count 221 K/uL (130-400); RDW Coefficient of Variation 13.6 % (11.5-14.5); RDW Standard Deviation 45.2 fL (36.4-46.3); Red Blood Count 4.32 M/uL (4.7-6.1); White Blood Count 10.55 K/uL (4.8-10.8)
--- NOTE | 2019-05-12 06:27 | Surgery Progress Note ---
Date of Service May 12, 2019 Assessment & Plan (1) History of laparoscopic cholecystectomy: pt awake, alert- feels ok min pain abd soft see how he does this am- probably d/c home later today if arturo po and oob adequately instructions in d/c info Results & Data Vital Signs (Past 12 Hours) Vital Signs Temp Pulse Resp BP Pulse Ox 05/12/19 03:56 37.6 C H 72 16 148/72 H 92 05/11/19 23:33 37.0 C 72 16 136/78 92 05/11/19 19:45 36.8 C 74 18 133/75 92 PG Care Time/CCT Total # of Minutes Spent Total Time Spent with Patient: Total time spent is greater than 50% in coordination of care (as documented) at patient's floor/unit and/or counseling patient:
[2019-05-12 06:42] LABS: Albumin Level 2.9 gm/dl (3.4-5.0); BUN Creatinine Ratio 14.9 (10-20); Calcium 8.5 mg/dl (8.5-10.1); Creatinine Clr Calc Pharmacy 49.6 ml/min; Est GFR (African American) 83.1; Est GFR (Non-African American) 71.7; Potassium 3.8 mmol/L (3.5-5.1)
[2019-05-12 06:45] LABS: Albumin Globulin Ratio 0.9 (0.9-2); Bilirubin,Total 0.4 mg/dl (0.2-1); Globulin 3.3 gm/dl (2.5-4.0); Total Protein 6.2 gm/dl (6.4-8.2)
[2019-05-12] MEDS: INSULIN ASPART 100 UNITS/ML 3 ML PEN SC SCH ×4 (09:14→21:04)
[2019-05-12] MEDS: INSULIN GLARGINE SOLOSTAR 100 UNITS/ML 3 ML PEN SC SCH (09:16)
[2019-05-12] MEDS: AMLODIPINE BESYLATE 5 MG TAB PO SCH (09:17)
[2019-05-12] MEDS: DORZOLAMIDE/TIMOLOL 22.3/6.8MG/ML 10 ML BTL OPB SCH ×2 (09:17→20:22)
[2019-05-12] MEDS: SIMVASTATIN 20 MG TAB PO SCH (09:17)
--- NOTE | 2019-05-12 09:29 | XRay Report ---
XR chest 2V PA/lateral HISTORY: Hypoxia, rule out PNA vs. pulm edema COMPARISON: Chest 05/10/2019. FINDINGS: There are low lung volumes with bibasilar linear densities suggesting subsegmental atelecta sis. This has slightly progressed. No pneumothorax. The heart remains stable in size. The upper lung zones are clear. No evidence for pulmonary edema. Interval cholecystectomy. This likely accounts for the pneumoperitoneum. IMPRESSION: 1. Low lung volumes with progressive bibasilar linear densities suggesting subsegmental atelectasis. 2. Interval cholecystectomy. This likely accounts for the pneumoperitoneum. ACT 112: Negative or not required by law. Electronically signed by: Raj Madison M.D. 05/12/2019 9:28 AM
--- NOTE | 2019-05-12 12:15 | Hospitalist Progress Note ---
Date of Service May 12, 2019 Assessment & Plan (1) Acute cholecystitis: - Imaging on admission concerning for acute cholecystitis. - Gen surg consulted, s/p lap heather on 05/11 POD#1. - Ceftriaxone and Flagyl for empiric coverage; can likely d/c abx at discharge. - Tolerating low fat diet. - Tylenol, Oxycodone and Morphine prn pain. - Monitor CBC -- H/H trending down slightly, likely related to acute blood loss anemia. - Discharge likely on Tuesday pending improvement in hypoxia. (2) Hypoxia: - Has been requiring 2-3L via NC post op -- no h/o oxygen requirements. - CXR showed findings c/w subsegmental atelectasis along with post op pn eumoperitoneum. - Encouraged IS use q1hr while awake; had low grade fever overnight which may be associated with atelectasis. - Will continue to wean oxygen requirements as tolerated over next 24 hours. (3) Hyperlipidemia: - Continue statin as prescribed. (4) Hypertension, benign: - Continue Amlodipine as prescribed. (5) Type 2 diabetes mellitus: - Most recent A1C 7.2 in Mar 2019. - SSI coverage with Lantus 20 units qAM - BG well controlled. Dispo: Med/surg; discharge likely on 05/13 pending improvement in hypoxia. Subjective Pt. has been requiring 3L via NC -- cannot wean oxygen per nurse. CXR showed subsegmental atelectasis. Encouraged IS use q1hr and showed patient how to use machine. Abd pain is stable, tolerating PO intake. Passing gas, no BM yet. Will monitor over next 24 hours, possible discharge on Tuesday pending improvement in hypoxia. Review of Systems Review of Systems: All systems reviewed & are unremarkable except as noted in HPI & below Constitutional: no fever, no chills, no fatigue, no weakness and no anorexia Respiratory: no cough, no dyspnea and no dyspnea on exertion Cardiovascular: no chest pain, no palpitations and no edema Gastrointestinal: + constipation; no abdominal pain and no nausea Genitourinary: no difficulty urinating Musculoskeletal: no back pain and no joint pain Physical Exam Physical Exam: General: Resting comfortably HEENT: NC/AT; PERRLA with EOMI; [place] conjunctiva, MMM. No erythema of posterior pharynx Neck: Supple and nontender Cardiac: RRR Lungs: CTA bilaterally Abdomen: Bowel normoactive X 4; Nontender to palpation Extremities: Warm. No edema present Neuro: No focal weakness Skin: No rash Results & Data Vital Signs (Past 12 Hours) Vital Signs Temp Pulse Resp BP Pulse Ox 05/12/19 10:55 94 05/12/19 07:08 36.8 C 74 16 144/77 H 90 05/12/19 03:56 37.6 C H 72 16 148/72 H 92 Laboratory Results 05/12/19 05/12/19 05/12/19 Range/Units 08:00 05:42 05:42 WBC 10.55 (4.8-10.8) K/uL RBC 4.32 L (4.7-6.1) M/uL Hgb 12.7 L (14.0-18.0) g/dL Hct 39.0 L (42-52) % MCV 90.3 (80-100) fL MCH 29.4 (25-34) pg MCHC 32.6 (32-36) g/dL RDW Std Deviation 45.2 (36.4-46.3) fL RDW Coeff of Natasha 13.6 (11.5-14.5) % Plt Count 221 (130-400) K/uL MPV 9.9 (7.4-10.4) fL Sodium 135 L (136-145) mmol/L Potassium 3.8 (3.5-5.1) mmol/L Chloride 104 (98-107) mmol/L Carbon Dioxide 27 (21-32) mmol/L Anion Gap 4.0 (3-11) BUN 14 (7-18) mg/dl Creatinine 0.95 (0.6-1.4) mg/dl Est Cr Clr Drug Dosing 49.6 ml/min Est GFR ( Amer) 83.1 Est GFR (Non-Af Amer) 71.7 BUN/Creatinine Ratio 14.9 (10-20) Glucose 155 H (70-99) mg/dl POC Glucose 156 H (70-99) Calcium 8.5 (8.5-10.1) mg/dl Total Bilirubin 0.4 (0.2-1) mg/dl AST 34 (15-37) U/L ALT 26 (12-78) U/L Alkaline Phosphatase 47 (45-117) U/L Total Protein 6.2 L (6.4-8.2) gm/dl Albumin 2.9 L (3.4-5.0) gm/dl Globulin 3.3 (2.5-4.0) gm/dl Albumin/Globulin Ratio 0.9 (0.9-2) 05/11/19 05/11/19 05/11/19 Range/Units 21:12 17:18 11:10 WBC (4.8-10.8) K/uL RBC (4.7-6.1) M/uL Hgb (14.0-18.0) g/dL Hct (42-52) % MCV (80-100) fL MCH (25-34) pg MCHC (32-36) g/dL RDW Std Deviation (36.4-46.3) fL RDW Coeff of Natasha (11.5-14.5) % Plt Count (130-400) K/uL MPV (7.4-10.4) fL Sodium (136-145) mmol/L Potassium (3.5-5.1) mmol/L Chloride (98-107) mmol/L Carbon Dioxide (21-32) mmol/L Anion Gap (3-11) BUN (7-18) mg/dl Creatinine (0.6-1.4) mg/dl Est Cr Clr Drug Dosing ml/min Est GFR ( Amer) Est GFR (Non-Af Amer) BUN/Creatinine Ratio (10-20) Glucose (70-99) mg/dl POC Glucose 194 H 180 H 175 H (70-99) Calcium (8.5-10.1) mg/dl Total Bilirubin (0.2-1) mg/dl AST (15-37) U/L ALT (12-78) U/L Alkaline Phosphatase (45-117) U/L Total Protein (6.4-8.2) gm/dl Albumin (3.4-5.0) gm/dl Globulin (2.5-4.0) gm/dl Albumin/Globulin Ratio (0.9-2) PG Care Time/CCT Total # of Minutes Spent Total Time Spent with Patient: Total time spent is greater than 50% in coordination of care (as documented) at patient's floor/unit and/or counseling patient: (1) Type 2 diabetes mellitus Diabetes mellitus [facility] insulin use: with ferry terminal agent use (2) Hyperlipidemia Hyperlipidemia type: mixed hyperlipidemia Qualified Code(s): E78.2 - Mixed hyperlipidemia
--- NOTE | 2019-05-12 13:40 | Anesthesiology Progress Note ---
Date of Service May 12, 2019 Anesthesia Post Procedure Vital Signs Vital Signs: Temp Pulse Resp BP Pulse Ox 05/12/19 13:03 91 05/12/19 12:17 91 05/12/19 10:55 94 05/12/19 07:08 36.8 C 74 16 144/77 H 90 05/12/19 03:56 37.6 C H 72 16 148/72 H 92 05/11/19 23:33 37.0 C 72 16 136/78 92 05/11/19 19:45 36.8 C 74 18 133/75 92 05/11/19 15:08 37.0 C 74 18 125/76 95 Notes Mental Status: alert / awake / arousable Patient Amnestic to Procedure: Yes Nausea / Vomiting: adequately controlled Pain: adequately controlled Airway Patency, RR, SpO2: stable & adequate BP & HR: stable & adequate Hydration State: stable & adequate Anesthetic Complications: no major complications apparent and Pt Satisfied with anesthetic care
[2019-05-12] MEDS: LATANOPROST 0.005% OP SOLN 2.5 ML BTL OP SCH (20:23)
[2019-05-12] MEDS: cefTRIAXone SODIUM 2,000 MG in DEXTROSE 5% 50 ML IV SCH (20:24)
[2019-05-13] MEDS: metroNIDAZOLE 500 MG/100 ML BAG IV SCH ×3 (03:29→20:48)
[2019-05-13 05:40] LABS: Mean Corpuscular Hemoglobin 29.9 pg (25-34); Mean Corpuscular Hgb Conc 33.3 g/dL (32-36); Mean Corpuscular Volume 89.6 fL (80-100); Mean Platelet Volume 9.6 fL (7.4-10.4); Platelet Count 213 K/uL (130-400); RDW Coefficient of Variation 13.5 % (11.5-14.5); RDW Standard Deviation 44.4 fL (36.4-46.3); Red Blood Count 4.02 M/uL (4.7-6.1); White Blood Count 10.88 K/uL (4.8-10.8)
[2019-05-13 06:01] LABS: BUN Creatinine Ratio 19.6 (10-20); Calcium 8.4 mg/dl (8.5-10.1); Creatinine Clr Calc Pharmacy 52.9 ml/min; Est GFR (African American) 89.1; Est GFR (Non-African American) 76.9; Potassium 3.6 mmol/L (3.5-5.1)
[2019-05-13] MEDS: SIMVASTATIN 20 MG TAB PO SCH (09:53)
[2019-05-13] MEDS: AMLODIPINE BESYLATE 5 MG TAB PO SCH (09:53)
[2019-05-13] MEDS: INSULIN GLARGINE SOLOSTAR 100 UNITS/ML 3 ML PEN SC SCH (09:53)
[2019-05-13] MEDS: DORZOLAMIDE/TIMOLOL 22.3/6.8MG/ML 10 ML BTL OPB SCH ×2 (09:53→20:48)
[2019-05-13] MEDS: INSULIN ASPART 100 UNITS/ML 3 ML PEN SC SCH ×6 (09:55→20:50)
[2019-05-13 11:01] LABS: D Dimer 1410 ug/L FEU (0-500)
[2019-05-13] MEDS ORDERED: SODIUM CHLORIDE 0.9% 1000ML 250 ML IV ONE (11:36)
[2019-05-13] MEDS ORDERED: OPTIRAY 320 125ml IV PRN (12:10)
--- NOTE | 2019-05-13 12:20 | CT Scan Report ---
CT ANGIOGRAM OF THE CHEST CLINICAL HISTORY: Atypical chest pain and shortness of breath. Possible pulmonary embolism. COMPARISON STUDY: Noncontrast chest CT dated 10/07/2017. Chest x-ray dated 05/12/2019 TECHNIQUE: Following the IV administration of 83 mL of Optiray-320, CT angiogram of the thorax was pe rformed from the thoracic inlet to the lung bases utilizing the pulmonary embolus protocol. Images ar e reviewed in the axial, sagittal, and coronal planes. IV contrast was administered without complicat ion. MIP imaging was performed. A dose lowering technique was utilized adhering to the principles of ALARA. CT DOSE: 334.91 mGy.cm FINDINGS: There is a 12 mm left lobe thyroid nodule. No further follow-up is indicated in a patient of this age . There is pneumoperitoneum, likely secondary to recent cholecystectomy. Mediastinal lymph nodes are the upper limits of normal in size. There is no evidence for pathologic a xillary or hilar lymphadenopathy. There is no evidence of thoracic aortic dilatation. There are bilateral lower lobe, and right middle lobe opacities, likely atelectatic given the history of recent surgery although aspiration or pneumonia could appear similar. There is mild pulmonary emp hysema. There are no large pleural effusions. There is a suboptimal inspiration. Degenerative changes are present within the spine. There is an midthoracic superior endplate compress ion deformity. There are no pulmonary artery filling defects to indicate acute pulmonary embolism. IMPRESSION: 1. Pneumoperitoneum, likely secondary to recent cholecystectomy 2. No evidence of acute pulmonary embolism 3. Bilateral lower lobe, and right middle lobe opacities, likely atelectatic given the history of rec ent surgery although a pneumonia could appear similar ACT 112: Negative or not required by law. Electronically signed by: Avila Pink M.D. 05/13/2019 12:18 PM
--- NOTE | 2019-05-13 12:56 | Hospitalist Progress Note ---
Date of Service May 13, 2019 Assessment & Plan (1) Acute cholecystitis: - Imaging on admission concerning for acute cholecystitis. - Gen surg consulted, s/p lap heather on 05/11 POD#2. - Ceftriaxone and Flagyl for empiric coverage; can d/c abx at discharge. - Low fat diet. - Tylenol, Oxycodone and Morphine prn pain. - Monitor CBC -- H/H trending down, related to acute blood loss anemia. - Doing well from a surgical standpoint; discharge pending improvement in hypoxia. (2) Hypoxia: - Has been requiring 2L via NC post op -- no h/o oxygen requirements. - CXR showed findings c/w subsegmental atelectasis along with post op pneumoperitoneum. - D dimer elevated; CT chest neg for PE, did show atelectasis. - Encouraged IS use q1hr while awake -- has been using IS frequently. - Continue to wean oxygen requirements as tolerated - may require oxygen at discharge if no improvement by Tuesday. Case management following. (3) Hyperlipidemia: - Continue statin as prescribed. (4) Hypertension, benign: - Continue Amlodipine as prescribed. (5) Type 2 diabetes mellitus: - Most recent A1C 7.2 in Mar 2019. - SSI coverage with Lantus 20 units qAM - BG elevated, will increase SSI coverage. DVT ppx: SCDs; Heparin q12hr. Dispo: Med/surg; discharge pending improvement in hypoxia, possibly on 05/14/19. Subjective Pt. is doing well today with exception of hypoxia. Cannot wean oxygen. He denies SOB at rest, has not been ambulating in halls. D dimer elevated, CT PE negative for PE but did show atelectasis. Will monitor over next 24 hours and encourage IS use. Case management following, may require oxygen at discharge. He c/o abd discomfort with movement. Is passing gas, no BM yet. Review of Systems Review of Systems: All systems reviewed & are unremarkable except as noted in HPI & below Constitutional: no fever, no chills, no fatigue, no weakness and no anorexia Respiratory: no cough, no dyspnea and no dyspnea on exertion Cardiovascular: no chest pain, no palpitations and no edema Gastrointestinal: + abdominal pain and + constipation; no nausea and no vomiting Genitourinary: no difficulty urinating Musculoskeletal: no back pain and no joint pain Integumentary: no non-healing lesions Physical Exam Physical Exam: General: Resting comfortably HEENT: NC/AT; PERRLA with EOMI; [place] conjunctiva, MMM. No erythema of posterior pharynx Neck: Supple and nontender Cardiac: RRR Lungs: CTA bilaterally Abdomen: Bowel normoactive X 4; Nontender to palpation. Incision sites with steri strips, no discharge noted. Extremities: Warm. No edema present Neuro: No focal weakness Skin: No rash Results & Data Vital Signs (Past 12 Hours) Vital Signs Temp Pulse Resp BP Pulse Ox 05/13/19 08:00 36.6 C 70 20 154/74 H 93 Laboratory Results 05/13/19 05/13/19 05/13/19 Range/Units 12:18 10:12 07:54 WBC (4.8-10.8) K/uL RBC (4.7-6.1) M/uL Hgb (14.0-18.0) g/dL Hct (42-52) % MCV (80-100) fL MCH (25-34) pg MCHC (32-36) g/dL RDW Std Deviation (36.4-46.3) fL RDW Coeff of Natasha (11.5-14.5) % Plt Count (130-400) K/uL MPV (7.4-10.4) fL D-Dimer 1410 H* (0-500) ug/L FEU Sodium (136-145) mmol/L Potassium (3.5-5.1) mmol/L Chloride (98-107) mmol/L Carbon Dioxide (21-32) mmol/L Anion Gap (3-11) BUN (7-18) mg/dl Creatinine (0.6-1.4) mg/dl Est Cr Clr Drug Dosing ml/min Est GFR ( Amer) Est GFR (Non-Af Amer) BUN/Creatinine Ratio (10-20) Glucose (70-99) mg/dl POC Glucose 208 H 163 H (70-99) Calcium (8.5-10.1) mg/dl Specimen Hemolysis 05/13/19 05/13/19 05/12/19 Range/Units 05:22 05:22 20:36 WBC 10.88 H (4.8-10.8) K/uL RBC 4.02 L (4.7-6.1) M/uL Hgb 12.0 L (14.0-18.0) g/dL Hct 36.0 L (42-52) % MCV 89.6 (80-100) fL MCH 29.9 (25-34) pg MCHC 33.3 (32-36) g/dL RDW Std Deviation 44.4 (36.4-46.3) fL RDW Coeff of Natasha 13.5 (11.5-14.5) % Plt Count 213 (130-400) K/uL MPV 9.6 (7.4-10.4) fL D-Dimer (0-500) ug/L FEU Sodium 136 (136-145) mmol/L Potassium 3.6 (3.5-5.1) mmol/L Chloride 104 (98-107) mmol/L Carbon Dioxide 29 (21-32) mmol/L Anion Gap 3.0 (3-11) BUN 17 (7-18) mg/dl Creatinine 0.89 (0.6-1.4) mg/dl Est Cr Clr Drug Dosing 52.9 ml/min Est GFR ( Amer) 89.1 Est GFR (Non-Af Amer) 76.9 BUN/Creatinine Ratio 19.6 (10-20) Glucose 156 H (70-99) mg/dl POC Glucose 277 H (70-99) Calcium 8.4 L (8.5-10.1) mg/dl Specimen Hemolysis 05/12/19 Range/Units 17:06 WBC (4.8-10.8) K/uL RBC (4.7-6.1) M/uL Hgb (14.0-18.0) g/dL Hct (42-52) % MCV (80-100) fL MCH (25-34) pg MCHC (32-36) g/dL RDW Std Deviation (36.4-46.3) fL RDW Coeff of Natasha (11.5-14.5) % Plt Count (130-400) K/uL MPV (7.4-10.4) fL D-Dimer (0-500) ug/L FEU Sodium (136-145) mmol/L Potassium (3.5-5.1) mmol/L Chloride (98-107) mmol/L Carbon Dioxide (21-32) mmol/L Anion Gap (3-11) BUN (7-18) mg/dl Creatinine (0.6-1.4) mg/dl Est Cr Clr Drug Dosing ml/min Est GFR ( Amer) Est GFR (Non-Af Amer) BUN/Creatinine Ratio (10-20) Glucose (70-99) mg/dl POC Glucose 161 H (70-99) Calcium (8.5-10.1) mg/dl Specimen Hemolysis PG Care Time/CCT Total # of Minutes Spent Total Time Spent with Patient: Total time spent is greater than 50% in coordination of care (as documented) at patient's floor/unit and/or counseling patient: (1) Type 2 diabetes mellitus Diabetes mellitus alf insulin use: with alf use (2) Hyperlipidemia Hyperlipidemia type: mixed hyperlipidemia Qualified Code(s): E78.2 - Mixed hyperlipidemia
--- NOTE | 2019-05-13 14:15 | Surgery Progress Note ---
Date of Service May 13, 2019 Assessment & Plan (1) History of laparoscopic cholecystectomy: weaning O2 stable from surgery possible d/c tomorrow /son at bedside- satisfied with care Results & Data Vital Signs (Past 12 Hours) Vital Signs Temp Pulse Resp BP Pulse Ox 05/13/19 08:00 36.6 C 70 20 154/74 H 93 PG Care Time/CCT Total # of Minutes Spent Total Time Spent with Patient: Total time spent is greater than 50% in coordination of care (as documented) at patient's floor/unit and/or counseling patient:
[2019-05-13] MEDS: HEPARIN SOD 5,000 UNIT/0.5 ML VIAL SQ SCH (20:48)
[2019-05-13] MEDS: cefTRIAXone SODIUM 2,000 MG in DEXTROSE 5% 50 ML IV SCH (21:53)
[2019-05-13] MEDS: LATANOPROST 0.005% OP SOLN 2.5 ML BTL OP SCH (21:57)
[2019-05-14] MEDS: metroNIDAZOLE 500 MG/100 ML BAG IV SCH ×2 (03:14→11:55)
[2019-05-14 05:16] LABS: Hemoglobin 11.9 g/dL (14.0-18.0); Mean Corpuscular Hemoglobin 29.5 pg (25-34); Mean Corpuscular Hgb Conc 33.1 g/dL (32-36); Mean Corpuscular Volume 89.1 fL (80-100); Mean Platelet Volume 9.7 fL (7.4-10.4); Platelet Count 255 K/uL (130-400); RDW Coefficient of Variation 13.5 % (11.5-14.5); RDW Standard Deviation 44.1 fL (36.4-46.3); Red Blood Count 4.04 M/uL (4.7-6.1); White Blood Count 10.33 K/uL (4.8-10.8)
--- NOTE | 2019-05-14 07:40 | Anesthesiology Progress Note ---
Date of Service May 14, 2019 Anesthesia Post Procedure Vital Signs Vital Signs: Temp Pulse Resp BP Pulse Ox 05/13/19 22:57 37.0 C 72 16 146/68 H 91 05/13/19 16:55 91 05/13/19 15:23 37.4 C 76 16 150/79 H 92 05/13/19 08:00 36.6 C 70 20 154/74 H 93 Notes Mental Status: alert / awake / arousable and participated in evaluation Patient Amnestic to Procedure: Yes Nausea / Vomiting: adequately controlled Pain: adequately controlled Airway Patency, RR, SpO2: stable & adequate BP & HR: stable & adequate Hydration State: stable & adequate Anesthetic Complications: no major complications apparent
--- NOTE | 2019-05-14 08:00 | Surgery Progress Note ---
Date of Service May 14, 2019 Assessment & Plan (1) Acute cholecystitis: Postoperative day #3, status post laparoscopic cholecystectomy Doing well from surgical standpoint Oxygenation has improved Can discharge to home from a surgical standpoint when medically stable Postoperative activity restrictions reviewed and can follow-up with him in 2 weeks Subjective Postoperative day #3 Status post laparoscopic cholecystectomy Developed ecchymosis around the umbilical incision but that has not progressed Tolerating a regular diet Oxygenation has improved and is no longer on supplemental O2 Physical Exam Gastrointestinal (Abdomen): Inspection/Auscultation: normal bowel sounds and + abdominal surgical incision (Ecchymosis surrounding umbilical incision but otherwise intact, other 3 incisions are clean, dry and intact) Percussion/Palpation: + abdomen tender (Mild incisional only) and abdomen soft Results & Data Vital Signs (Past 12 Hours) Vital Signs Temp Pulse Pulse Resp BP Pulse Ox 05/14/19 07:47 36.9 C 81 24 146/82 H 94 05/13/19 22:57 37.0 C 72 16 146/68 H 91
[2019-05-14] MEDS: AMLODIPINE BESYLATE 5 MG TAB PO SCH (08:09)
[2019-05-14] MEDS: SIMVASTATIN 20 MG TAB PO SCH (08:10)
[2019-05-14] MEDS: DORZOLAMIDE/TIMOLOL 22.3/6.8MG/ML 10 ML BTL OPB SCH (08:10)
[2019-05-14] MEDS: INSULIN ASPART 100 UNITS/ML 3 ML PEN SC SCH ×2 (08:53→13:10)
[2019-05-14] MEDS: HEPARIN SOD 5,000 UNIT/0.5 ML VIAL SQ SCH (08:54)
[2019-05-14] MEDS: INSULIN GLARGINE SOLOSTAR 100 UNITS/ML 3 ML PEN SC SCH (08:54)
[2019-05-14 12:14] VITALS: TEMP 97.3; O2SAT 93
[2019-05-14 13:22] VITALS: BP 139/81; PULSE 72
--- NOTE | 2019-05-14 17:21 | Discharge Summary ---
Date of Service May 14, 2019 Admission HPI Per Admitting Provider 88-year-old male with history of diabetes, hypertension, hyperlipidemia presents with generalized abdominal pain beginning this evening after eating dinner. He described the pain as severe and cramping. He said he became diaphoretic and nauseous and had approximately 4 episodes of emesis. He denies any fevers, chills, night sweats. He denies any chest pain. He denies past medical history of CAD. The patient is on aspirin. Admission Exam Per Admitting Provider Constitutional: WD/WN, vitals as above Eyes: PERRL, conjunctivae normal, anicteric sclerae ENMT: external ear and nose normal, oropharynx normal Neck: trachea midline, no thyromegaly Respiratory: normal respiratory effort, lungs clear to auscultation Cardiovascular: RRR, no murmur, no edema Gastrointestinal (Abdomen): Inspection/Auscultation: abdomen normal to inspection and normal bowel sounds; abdomen not distended Percussion/Palpation: + abdomen tender (Mild epigastric tenderness with palpation); no guarding, abdomen not rigid and + abdomen not soft Principal Diagnosis Acute Cholecystitis Discharge Exam General: Resting comfortably HEENT: NC/AT; PERRLA with EOMI; [place] conjunctiva, MMM. No erythema of posterior pharynx Neck: Supple and nontender Cardiac: RRR Lungs: CTA bilaterally Abdomen: Bowel normoactive X 4; Nontender to palpation. Incision sites with steri strips. Extremities: Warm. No edema present Neuro: No focal weakness Skin: Ecchymosis noted near hailey-umbilical area, related to incision/recent surgery. Discharge Data Allergies Allergy/AdvReac Type Severity Reaction Status Date / Time naproxen Allergy Intermediate LIPS & Verified 05/10/19 21:58 CHEEKS SWELL Sulfa (Sulfonamide Allergy Mild mild Verified 05/10/19 21:58 Antibiotics) family history Consultations 05/10/19 22:43 ED Decision to Admit Stat 05/11/19 02:05 Consult Case Management - Discharge Planning Routine Consult General Surgery Routine Procedures Performed Operation Date: 05/11/19 07:15 Actual Procedures p Laparoscopic Cholecystectomy - Mina Scott MD Ordered Studies 05/10/19 20:54 CT abd pelvis IV con only Stat 05/10/19 22:37 US gallbladder Stat CXR 05/1205/13/19 11:36 CT angio chest PE protocol Urgent Hospital Course (1) Acute cholecystitis: Imaging on admission concerning for acute cholecystitis. Gen surg consulted, s/p lap heather on 05/11. Ceftriaxone and Flagyl for empiric coverage; d/c abx at discharge. Low fat diet. Tylenol, Oxycodone and Morphine prn pain. Doing well from a surgical standpoint. (2) Hypoxia: Required 2-3L for the first 48 hours post op. CXR showed findings c/w subsegmental atelectasis along with post op pneumoperitoneum. D dimer elevated; CT chest neg for PE, did show atelectasis. Encouraged IS use q1hr while awake -- has been using IS frequently. Walked patient in the hallway on day of discharge, O2 remained stable ~92%. Does not qualify for oxygen at home, stable on room air. (3) Hyperlipidemia: Continued statin as prescribed. (4) Hypertension, benign: Continued Amlodipine as prescribed. (5) Type 2 diabetes mellitus: Most recent A1C 7.2 in Mar 2019. SSI coverage with Lantus 20 units qAM. Discharged to home on 05/14/19. Total Time Total Time Spent Total Time Spent (In Minutes): >30 minutes Total Time Includes: Examination of the Patient, Discharge Planning, Medication Reconciliation, Communication With Other Providers and Other Discharge Plan Discharge Items Patient Disposition: Home - Self-Care Reason For Visit: CHOLECYSTITIS Discharge Diagnosis: acute cholecystitis Condition on Discharge: Fair Goals: You have been hospitalized for an acute medical problem. During your stay at [facility], we have made an effort to correct the problem that brought you to the hospital while keeping you as comfortable as possible. Medications were used to bring your condition under control and your discharge instructions will include directions for any medications you should take after leaving the hospital. Please make sure you see your Primary Care Provider as part of your follow up plan. Activity: Per Instructions section Non-emergency contact: Primary Care Provider and Surgeon Call non-emergency contact if: your pain is not controlled, your temperature is above 101 and your wound has increased drainage Follow-up/Referrals: Len Jack MD [Primary Care Provider] - 05/18/19 11:00 am (Please, follow up at Dr. Len Jack's office with his associate, Latonia Pérez PA-C, on TuesdayMay 18 at 11:00 am. *If you need to change this appointment, call their office at [phone].) Mina Scott MD [Physician] - 05/23/19 1:00 pm (Please, follow up with Dr. Mina Scott on TuesdayMay 23 at 1:00 pm. The office is located in [facility] at [address] in [place]. If you have any questions, call the office at [phone].) Diet: Low Fat Addtl Attending Provider Instructions: 1. Status post cholecystectomy * Please refer to instructions below regarding surgical care. * Continue low fat diet at home. Addtl Pickler Helper Provider Instructions: Post-Surgical ~Discharge Instructions Activity Recommendations: - lifting limitation: (10 pounds for 2 weeks), - exercise/sex/sports limit: (nonstrenuous for 2 weeks), - driving or machine use limit: (none for 1 week), - Shower/bathe limit: (may shower) Diet: - Resume previous diet SPECIAL CARE INSTRUCTIONS: - May shower. Let water run over area and pat dry. - Leave steri strips on for one week. - Call the surgeon's office with any questions or concerns - - (ex. temperature higher than 101 degrees F, excessive bleeding or pain). MEDICATIONS: - Resume previous medications unless instructed otherwise by your surgeon. - Ibuprofen 600 mg every 6 hours with food - Percocet 1 every 4 hours, as needed for pain FOLLOW UP VISIT: - If not already scheduled, please call the office to schedule a two week follow-up appointment. Office number Pending Studies at Discharge: Yes (Gallbladder pathology, will be reviewed at follow-up visit) Stand-Alone Forms: My [facility] Medications and DC Order Prescriptions: Continued amlodipine 5 mg tablet 5 mg PO DAILY Qty: 90 RF: 3 (DME) pen needle, diabetic [BD Ultra-Fine Joslyn Pen Needle] 32 gauge x 5/32" needle See Dose Instructions .ROUTE .MEDSUPPLY Qty: 2 RF: 3 simvastatin 20 mg tablet 20 mg PO DAILY Qty: 90 RF: 3 metformin 1,000 mg tablet 1,000 mg PO BID Qty: 180 RF: 1 dorzolamide-timolol [Cosopt] 22.3-6.8 mg/mL drops 1 drp OPB BID RF: 0 latanoprost 0.005 % drops 1 drops OP HS RF: 0 multivitamin [Multiple Vitamins] tablet 1 tab PO DAILY RF: 0 niacin 500 mg tablet extended release 500 mg PO HS Qty: 90 RF: 0 insulin glargine 100 unit/mL (3 mL) insulin pen See Rx Instructions .ROUTE .COMPLEX Qty: 4 RF: 0 cholecalciferol (vitamin D3) 2,000 unit tablet 2,000 units PO Q OTHER DAY RF: 0 (DME) OneTouch Ultra Blue Test Strip strip See Dose Instructions .ROUTE .MEDSUPPLY Qty: 10 RF: 0 aspirin [Aspir-81] 81 mg Tablet,Delayed Release (Dr/Ec) 81 mg PO DAILY RF: 0 Discharge Orders: Discharge Order (Routine); Ordered 05/14/19 Ordered By: Kristin Beltran/Other Patient Handouts: Cholecystectomy Laparoscopic Admission Data Admit Date/Time: 05/13/19 10:15 Attending Provider: Jie Lorenz Admit Provider: Virgil Roe Primary Care Provider: Len Jack Other Providers: Yemi Carmichael ; Mina Scott Other Interventions: Discharge Summary Assessment (RN) Last Done: 05/14/19 13:21 DC Date/Time DO NOT enter until pt leaves facility: 05/14/19 13:40 Supervising Physician Co-Signing Physician Notes Patient seen and examined with Kristin Bird PA-C. I agree with with her D/C summary.In summary pt was seen for the acute cholecystitis and acute respiratory failure. These acute issues are resolved now . Pt needs to follow up with PCP within 1 week.
== END 2019-05-14 13:40 | disposition home or self-care (01) | DRG 418 ==
LOC: 3N 20:44 → ED 20:44 → SUATTDRO 05-11 00:39 → 3N 05-11 01:19 → SUATTDRO 05-13 10:15

== ENCOUNTER 2021-06-16 09:09 | Inpatient (IN) ==
--- NOTE | 2021-06-16 09:32 | Emergency Department Note ---
History of Present Illness General Chief complaint: Stroke/CVA Symptoms Stated complaint: FACIAL DROOP, TIA SYMPTOMS Time Seen by Provider: 06/16/21 09:16 Source: patient and family ( who is at the bedside) Mode of arrival: ambulatory Limitations: no limitations History of Present Illness Maximum Pain Intensity: 0 This patient is an 89-year-old male who has diabetes and other medical issues, comes in after having generalized weakness and feeling like his speech was slurred. His last known well was 7 PM yesterday and at this point he is over 14 hours out. He may have fallen. He is on no definite blood thinners. Denies headache. His weakness is generalized and nonfocal he had no fever chills no chest pain shortness breath or cough no dysuria or hematuria. No difficulty speaking or swallowing he has no sore throat or sensation of swelling of the mouth lips or tongue. He did not eat this morning and is a diabetic. Home Medications Medication Instructions Recorded Confirmed Type latanoprost 0.005 % eye drops 1 drops OPR HS ml 11/21/18 04/10/21 History multivitamin (Multiple Vitamins) 1 tab PO DAILY 11/21/18 04/10/21 History cholecalciferol (vitamin D3) 50 2,000 units PO DAILY tab 06/13/19 04/10/21 History mcg (2,000 unit) tablet timolol maleate 0.5 % eye drops 1 drp OPR BID 09/13/20 04/10/21 History aspirin 81 mg tablet,delayed 81 mg PO 4XWK tab 09/30/20 04/10/21 History release (Aspir-) amlodipine 5 mg tablet 5 mg PO DAILY #90 tab 11/10/20 04/10/21 Rx simvastatin 20 mg tablet 20 mg PO DAILY #90 tab 03/16/21 04/10/21 Rx pen needle, diabetic 32 gauge x #200 ea 04/03/21 04/10/21 Rx 5/32" (BD Ultra-Fine Joslyn Pen Needle) insulin glargine 100 unit/mL (3 See Rx Instructions SQ DAILY #15 ml 04/13/21 Rx mL) subcutaneous pen (Lantus Solostar U-100 Insulin) niacin 500 mg tablet,extended 500 mg PO HS #90 tab 04/13/21 Rx release blood sugar diagnostic (OneTouch #100 ea 12/15/21 Rx Ultra Test) metformin 500 mg tablet 500 mg PO BID #180 tab 05/11/21 Rx Allergies Allergy/AdvReac Type Severity Reaction Status Date / Time naproxen Allergy Intermediate LIPS & Verified 04/10/21 12:54 CHEEKS SWELL Sulfa (Sulfonamide Allergy Mild mild Verified 04/10/21 12:54 Antibiotics) family history Past Med/Surg History Medical History Acute cholecystitis BPH (benign prostatic hyperplasia) Diabetes Hyperlipidemia Hypertension Shingles 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 Type 2 diabetes mellitus Vitamin D deficiency Surgical History History of laparoscopic cholecystectomy S/P cataract extraction Bilateral S/P TURP Family History Mother No acute medical problems Father Prostate cancer Asthma Diabetes Denies family history of Ovarian cancer Breast cancer Lung cancer Social History Smoking Status: Never smoker Tobacco Type: Cigarettes Age Started Using Tobacco: 21; Age Quit Using Tobacco: 36; packs per day: 1; Years Smoked: 15; Second Hand Exposure: No; Hx Alcohol Use: Yes Alcohol type: beer Alcohol Intake Frequency: Monthly or Less Hx Substance Use: No Preferred Language: Italian Communication Ability: Effective Visual Impairment: Limited Hearing Ability: Use of Hearing Aid Oracle Specialist Required: No Beliefs That Will Affect Care: None marital status: Current Living Situation: Spouse Current Living Situation Comment: current occupational status: retired Feels Safe at Home: Yes Childhood Exposure to Second-Hand Smoke: No caffeine: No Dental Care, Regularly: Yes Physical Activity Frequency: 3-4 Times per Week Physical Activity Frequency Comment: [employer] Seatbelt Use: always Sunscreen Use: No Do you think of yourself as: straight/heterosexual Assistive Devices: Glasses, Hearing Aid - Bilateral and Walker Review of Systems A total of 10 systems reviewed and were otherwise negative Physical Exam Vital Signs Vital Signs - 24 hr 06/16/21 09:10 06/16/21 09:13 06/16/21 09:20 Temperature 36.3 C L Temperature Source Temporal Artery Scan Pulse Rate 73 Pulse Rate [Finger] 80 Pulse Rhythm [Finger] Regular Pulse Strength [Finger] Normal Respiratory Rate 16 18 Respiratory Effort / Characteristics Non-Labored Non-Labored Respiratory Depth Normal Normal Respiratory Pattern Blood Pressure 172/75 H Blood Pressure [Right Arm] 189/76 H Blood Pressure Mean 107 Blood Pressure Mean [Right Arm] 113 Blood Pressure Position [Right Arm] Sitting Pulse Oximetry 95 95 Oxygen Delivery Method Room Air Room Air Room Air Sepsis Recent Fever Within 48 Hours No Sepsis New/Unexplained Change in Mental Status No Sepsis Action Taken by Nursing No Action Required 06/16/21 10:08 06/16/21 10:54 06/16/21 11:04 Temperature Temperature Source Pulse Rate Pulse Rate [Finger] 73 69 Pulse Rhythm [Finger] Regular Regular Pulse Strength [Finger] Normal Normal Respiratory Rate 18 18 Respiratory Effort / Characteristics Non-Labored Non-Labored Respiratory Depth Normal Normal Respiratory Pattern Regular Blood Pressure Blood Pressure [Right Arm] 145/94 H 167/72 H 147/78 H Blood Pressure Mean Blood Pressure Mean [Right Arm] 111 103 101 Blood Pressure Position [Right Arm] Sitting Sitting Lying Pulse Oximetry 95 94 Oxygen Delivery Method Room Air Room Air Sepsis Recent Fever Within 48 Hours Sepsis New/Unexplained Change in Mental Status Sepsis Action Taken by Nursing General: Well developed well nourished older male who appears in no acute distress, breathing comfortably on room air. He is able to read sentences and speak normal words however it does seem slightly slurred and the family says is different than baseline. HEENT: Normal cephalic atraumatic. Pupils are equal round and reactive to light. Extraocular movements are intact. Oropharynx is pink with moist mucous membranes. No swelling of the mouth lips or tongue. No facial droop or asymmetry noted. When he smiles it symmetric Neck: Supple with a midline trachea. No meningeal signs or stiffness, no JVD or bruits. No Stridor. Chest: Clear to auscultation bilaterally. No wheezes or rhonchi. No increased work of breathing. Heart: Regular rate and rhythm without murmurs or gallops. Abdomen: Soft nontender, nondistended without rebound guarding or rigidity. Extremities: No cyanosis clubbing or edema. No calf tenderness or assymetry Spine/Back. Non tender to palpation. No CVA tenderness Skin: Good turgor without rashes. Neurologic exam: Cranial nerves two through 12 are intact. Motor and sensation are intact and symmetrical throughout. Questionable dysarthria. no other focal numbness or weakness Course Administered Medications Discontinued Medications Ioversol (Optiray 320 125ml) 120 ml IV ONCE ONE Stop: 06/16/21 10:01 Last Admin: 06/16/21 09:55 Dose: 120 ml Documented by: [id number] Medical Decision Making Differential Diagnosis CVA, TIA, intracranial hemorrhage, hypoglycemia, electrolyte or metabolic abnormality, infection, sepsis, UTI, cardiac disease, Covid Medical Records Attestation: I reviewed the patient's medical records. Home Medications Current Medication List: was personally reviewed by me Laboratory Data Result diagrams: 06/16/21 09:40 06/16/21 09:40 Lab Results 06/16/21 06/16/21 06/16/21 Range/Units 09:40 09:40 09:40 WBC 6.98 (4.8-10.8) K/uL RBC 4.59 L (4.7-6.1) M/uL Hgb 14.0 (14.0-18.0) g/dL POC Hgb (14.0-18.0) g/dl Hct 42.1 (42-52) % POC Hct (42-52) % MCV 91.7 (80-100) fL MCH 30.5 (25-34) pg MCHC 33.3 (32-36) g/dL RDW Std Deviation 46.5 H (36.4-46.3) fL RDW Coeff of Natasha 13.9 (11.5-14.5) % Plt Count 247 (130-400) K/uL MPV 10.4 (7.4-10.4) fL Immature Gran % (Auto) 0.3 % Neut % (Auto) 64.9 % Lymph % (Auto) 24.4 % Mchenry % (Auto) 7.2 % Eos % (Auto) 2.9 % Baso % (Auto) 0.3 % Neut # (Auto) 4.54 (1.4-6.5) K/uL Lymph # (Auto) 1.70 (1.2-3.4) K/uL Mchenry # (Auto) 0.50 (0.11-0.59) K/uL Eos # (Auto) 0.20 (0-0.5) K/uL Baso # (Auto) 0.02 (0-0.2) K/uL Immature Gran # (Auto) 0.02 (0.00-0.02) K/uL PT 10.9 (9.0-12.0) Seconds INR 1.1 (0.9-1.1) APTT 37.9 H (21.0-31.0) Seconds PTT Ratio 1.4 POC Sodium (135-144) mmol/L Sodium 136 (136-145) mmol/L POC Potassium (3.3-5.0) mmol/L Potassium 4.2 (3.5-5.1) mmol/L POC Chloride (101-112) mmol/L Chloride 103 (98-107) mmol/L Carbon Dioxide 26 (21-32) mmol/L POC Total CO2 (24-31) mmol/L Anion Gap 7 (3-11) POC Anion Gap (16-25) mmol/L POC BUN (7-18) mg/dl BUN 23 (6-23) mg/dl Creatinine 0.96 (0.6-1.4) mg/dl POC Creatinine (0.6-1.3) mg/dl Est Cr Clr Drug Dosing 47.4 ml/min Est GFR ( Amer) 80.9 ml/min Est GFR (Non-Af Amer) 69.8 ml/min BUN/Creatinine Ratio 24.0 H (10-20) Glucose 246 H (70-99(Fasting)) mg/dl POC Glucose (other) (70-99) mg/dl Calcium 9.1 (8.5-10.1) mg/dl POC Ioniz Calcium Sandra (1.12-1.32) mmol/l Magnesium 1.7 (1.7-2.4) mg/dl Total Bilirubin 0.5 (0.2-1.0) mg/dl AST 16 (13-39) U/L ALT 7 (7-52) U/L Alkaline Phosphatase 42 (34-104) U/L Troponin I < 0.03 (0-0.04) ng/ml Total Protein 6.8 (6.0-8.3) gm/dl Albumin 4.0 (3.4-5.0) gm/dl Globulin 2.8 (2.5-4.0) gm/dl Albumin/Globulin Ratio 1.4 (0.9-2) SARS-CoV-2, RNA, NAAT (NEGATIVE) 06/16/21 06/16/21 Range/Units 09:43 10:25 WBC (4.8-10.8) K/uL RBC (4.7-6.1) M/uL Hgb (14.0-18.0) g/dL POC Hgb 14.3 (14.0-18.0) g/dl Hct (42-52) % POC Hct 42 (42-52) % MCV (80-100) fL MCH (25-34) pg MCHC (32-36) g/dL RDW Std Deviation (36.4-46.3) fL RDW Coeff of Natasha (11.5-14.5) % Plt Count (130-400) K/uL MPV (7.4-10.4) fL Immature Gran % (Auto) % Neut % (Auto) % Lymph % (Auto) % Mchenry % (Auto) % Eos % (Auto) % Baso % (Auto) % Neut # (Auto) (1.4-6.5) K/uL Lymph # (Auto) (1.2-3.4) K/uL Mchenry # (Auto) (0.11-0.59) K/uL Eos # (Auto) (0-0.5) K/uL Baso # (Auto) (0-0.2) K/uL Immature Gran # (Auto) (0.00-0.02) K/uL PT (9.0-12.0) Seconds INR (0.9-1.1) APTT (21.0-31.0) Seconds PTT Ratio POC Sodium 139 (135-144) mmol/L Sodium (136-145) mmol/L POC Potassium 4.3 (3.3-5.0) mmol/L Potassium (3.5-5.1) mmol/L POC Chloride 101 (101-112) mmol/L Chloride (98-107) mmol/L Carbon Dioxide (21-32) mmol/L POC Total CO2 24 (24-31) mmol/L Anion Gap (3-11) POC Anion Gap 19.0 (16-25) mmol/L POC BUN 23 H (7-18) mg/dl BUN (6-23) mg/dl Creatinine (0.6-1.4) mg/dl POC Creatinine 0.9 (0.6-1.3) mg/dl Est Cr Clr Drug Dosing ml/min Est GFR ( Amer) ml/min Est GFR (Non-Af Amer) ml/min BUN/Creatinine Ratio (10-20) Glucose (70-99(Fasting)) mg/dl POC Glucose (other) 252 H (70-99) mg/dl Calcium (8.5-10.1) mg/dl POC Ioniz Calcium Sandra 1.19 (1.12-1.32) mmol/l Magnesium (1.7-2.4) mg/dl Total Bilirubin (0.2-1.0) mg/dl AST (13-39) U/L ALT (7-52) U/L Alkaline Phosphatase (34-104) U/L Troponin I (0-0.04) ng/ml Total Protein (6.0-8.3) gm/dl Albumin (3.4-5.0) gm/dl Globulin (2.5-4.0) gm/dl Albumin/Globulin Ratio (0.9-2) SARS-CoV-2, RNA, NAAT NEGATIVE (NEGATIVE) Imaging Data Attestation: I personally reviewed and interpreted this imaging study as follows: My Impression: Chest x-rayno acute infiltrate, failure, pneumothorax seen. Cardiomegaly. Radiologist's Impression: Chest X-Ray 06/16/21 09:26 XR chest 1V portable HISTORY: 89 years-old Male Stroke Like Symptoms acute strokelike symptoms COMPARISON: Chest radiographs 05/12/2019 and 05/10/2019, CTA chest 05/13/2019 TECHNIQUE: Portable AP view of the chest FINDINGS: Cardiac silhouette is enlarged. Mild bilateral hilar prominence. Pulmonary vascular congestion with interstitial coarsening. No pneumothorax. Suggested trace pleural effusions with mild bibasilar densities. The lungs are hypoinflated. Degenerative changes of the shoulders and spine. IMPRESSION: 1. Cardiomegaly with pulmonary vascular congestion. 2. Mild bibasilar densities suggestive of atelectasis. 3. Mild bilateral hilar prominence may be secondary to bronchovascular crowding versus adenopathy. ACT 112: Negative or not required by law. The above report was generated using voice recognition software. It may contain grammatical, syntax or spelling errors. Electronically signed by: Pola Black M.D. 06/16/2021 10:[address] 06/16/21 09:26 CT angio neck with con, CT head/brain wo con, CT angio head w con CLINICAL HISTORY: Stroke Like Symptoms TECHNIQUE: Contiguous axial CT images of the head were acquired from the base of the skull to the vertex without intravenous contrast administration. CT angiography of the head and neck was performed following intravenous administration of iodinated contrast. Coronal and sagittal MIPS were obtained from the axial data set and were submitted for review. Automated dose lowering techniques and/or adjustment according to patient size were utilized for this examination. All measurements were calculated based on NASCET criteria. Comparison: None available at the time of this dictation. FINDINGS: CT head: Areas of decreased attenuation are present in the periventricular and subcortical white matter bilaterally consistent with small vessel ischemic disease. Generalized cerebral atrophy with commensurate enlargement of the ventricles, sulci, and cisterns is also present. There is no acute intracranial hemorrhage or evidence of acute territorial infarction. No shift of the midline structures, mass effect, or extra-axial abnormalities are shown. Atherosclerotic calcifications are present in the intracranial segments of the internal carotid arteries. Subcentimeter thyroid nodules are seen which do not require follow-up by ACR criteria. CTA Neck: The left common carotid artery shares common origin with the innominate artery. There is a focus of atherosclerosis most prominent at the origin of the left vertebral artery. The common carotid, external carotid, cer vical segments of the internal carotid arteries, and the cervical segments of the vertebral arteries are patent without hemodynamically significant stenosis. The vertebral arteries are codominant. CTA Head: The anterior and posterior cerebral circulations are patent. No h emodynamically significant stenosis, aneurysm, dissection, or arteriovenous malformation is shown. Atherosclerotic disease is noted. IMPRESSION: 1. No acute intracranial hemorrhage, evidence of acute territorial infarction, or other acute intracranial disease process. 2. No occlusion, hemodynamically significant stenosis, aneurysm, dissection, or arteriovenous malformation in the major intracranial arteries. 3. No occlusion, hemodynamically significant stenosis, or dissection in the major cervical arteries. Assessment of stenosis of the internal carotid arteries is based on NASCET cri teria. ACT 112: Negative or not required by law. Electronically signed by: Adalberto Valenzuela M.D. 06/16/2021 10:24 AM Head CTA 06/16/21 09:26 CT angio neck with con, CT head/brain wo con, CT angio head w con CLINICAL HISTORY: Stroke Like Symptoms TECHNIQUE: Contiguous axial CT images of the head were acquired from the base of the skull to the vertex without intravenous contrast administration. CT angiography of the head and neck was performed following intravenous administrat ion of iodinated contrast. Coronal and sagittal MIPS were obtained from the axial data set and were submitted for review. Automated dose lowering techniques and/or adjustment according to patient size were utilized for this examination. All measurements were calculated based on NASCET criteria. Comparison: None available at the time of this dictation. FINDINGS: CT head: Areas of decreased attenuation are present in the periventricular and subcortical white matter bilaterally consistent with small vessel ischemic disease. Generalized cerebral atrophy with commensurate enlargement of the ventricles, sulci, and cisterns is also present. There is no acute intracranial hemorrhage or evidence of acute territorial infarction. No shift of the midline structures, mass effect, or extra-axial abnormalities are shown. Atherosclerotic calcifications are present in the intracranial segments of the internal carotid arteries. Subcentimeter thyroid nodules are seen which do not require follow-up by ACR criteria. CTA Neck: The left common carotid artery shares common origin with the innominate artery. There is a focus of atherosclerosis most prominent at the origin of the left vertebral artery. The common carotid, external carotid, cervical segments of the internal carotid arteries, and the cervical segments of the vertebral arteries are patent without hemodynamically significant stenosis. The vertebral arteries are codominant. CTA Head: The anterior and posterior cerebral circulations are patent. No hemodynamically significant stenosis, aneurysm, dissection, or arteriovenous malformation is shown. Atherosclerotic disease is noted. IMPRESSION: 1. No acute intracranial hemorrhage, evidence of acute territorial infarction, or other acute intracranial disease process. 2. No occlusion, hemodynamically significant stenosis, aneurysm, dissection, or arteriovenous malformation in the major intracranial arteries. 3. No occlusion, hemodynamically significant stenosis, or dissection in the major cervical arteries. Assessment of stenosis of the internal carotid arteries is based on NASCET criteria. ACT 112: Negative or not required by law. Electronically signed by: Adalberto Valenzuela M.D. 06/16/2021 10:24 AM Neck CTA 06/16/21 09:26 CT angio neck with con, CT head/brain wo con, CT angio head w con CLINICAL HISTORY: Stroke Like Symptoms TECHNIQUE: Contiguous axial CT images of the head were acquired from the base of the skull to the vertex without intravenous contrast administration. CT angiog yuriy of the head and neck was performed following intravenous administration of iodinated contrast. Coronal and sagittal MIPS were obtained from the axial data set and were submitted for review. Automated dose lowering techniques and/or adjustment according to patient size were utilized for this examination. All measurements were calculated based on NASCET criteria. Comparison: None available at the time of this dictation. FINDINGS: CT head: Areas of decreased attenuation are present in the periventricular and s ubcortical white matter bilaterally consistent with small vessel ischemic disease. Generalized cerebral atrophy with commensurate enlargement of the ventricles, sulci, and cisterns is also present. There is no acute intracranial hemorrhage or evidence of acute territorial infarction. No shift of the midline structures, mass effect, or extra-axial abnormalities are shown. Atherosclerotic calcifications are present in the intracranial segments of the internal carotid arteries. Subcentimeter thyroid nodules are seen which do not require follow-up by ACR criteria. CTA Neck: The left common carotid artery shares common origin with the innomina te artery. There is a focus of atherosclerosis most prominent at the origin of the left vertebral artery. The common carotid, external carotid, cervical segments of the internal carotid arteries, and the cervical segments of the vertebral arteries are patent without hemodynamically significant stenosis. The vertebral arteries are codominant. CTA Head: The anterior and posterior cerebral circulations are patent. No hemodynamically significant stenosis, aneurysm, dissection, or arteriovenous malformation is shown. Atherosclerotic disease is noted. IMPRESSION: 1. No acute intracranial hemorrhage, evidence of acute territorial infarction, or other acute intracranial disease process. 2. No occlusion, hemodynamically significant stenosis, aneurysm, dissection, or arteriovenous malformation in the major intracranial arteries. 3. No occlusion, hemodynamically significant stenosis, or dissection in the major cervical arteries. Assessment of stenosis of the internal carotid arteries is based on NASCET criteria. ACT 112: Negative or not required by law. Electronically signed by: Adalberto Valenzuela M.D. 06/16/2021 10:24 AM ECG Data Attestation: I personally reviewed and interpreted this ECG as follows: Indication: + weakness Rate (beats per minute): 71 Rhythm: + normal sinus ECG Intervals/blocks: + Normal QRS, + Normal QT and + Normal CT ECG [place]: + Normal ECG ST segments: + Normal ST segments ECG Findings: no PACs or no PVCs Comparison ECG Date: from (05/30/19) Change: no significant change MDM Narrative This patient comes in as described above. He was placed on a technical mgr room a 10. He is having strokelike symptoms potentially with his only complaint is generalized weakness and slight slurred speech. He is a diabetic so we did order an i-STAT to get a quick blood sugar as well as electrolytes. His last known well was 14 hours ago so he is well outside the TPA window and likely intervention window. Given that he has multiple medical problems I did do an i- STAT prior to getting him over to CAT scan to ensure his kidney functions looked okay. I did order full stroke work-up including CT of the head and CTA of the head and neck as per our protocol. He was placed on a technical mgr EKG and multiple blood testing was obtained. He was reassessed frequently. His EKG does not suggest ischemic changes. His blood sugar was mildly elevated but nothing to suggest DKA or hypoglycemia. He has nothing to suggest infection. Neuroimaging was negative. He still does have some dysarthria which his says is new. I did give him aspirin, he does take a baby aspirin a days a week but is not taken 1 today. I did order it rectally as he does have some dysarthria and possible dysphagia. I do think he needs to be admitted/observed further treatment and work-up he may ultimately MRI and further stroke work-up. Have consulted Dr. Cuello for these measures. I discussed this with the patient his and they agree. Continuous cardiac monitoring: Orders placed in EMR for continuous cart monitor. Upon my interpretation patient noted to be normal sinus with a rate of 70 Impression & Plan Weakness, Stroke-like symptoms, Lab test negative for COVID-19 virus, Dysarthria Discharge Plan Visit Data Chief Complaint: Stroke/CVA Symptoms Stated Complaint: FACIAL DROOP, TIA SYMPTOMS ED Provider: Jeff Herring Discharge Problem: Weakness, Stroke-like symptoms, Lab test negative for COVID-19 virus, Dysarthria Forms Stand Alone Forms: [facility] Prescriptions Prescriptions: No Action amlodipine 5 mg tablet 5 mg PO DAILY Qty: 90 RF: 3 simvastatin 20 mg tablet 20 mg PO DAILY Qty: 90 RF: 3 (DME) pen needle, diabetic [BD Ultra-Fine Joslyn Pen Needle] 32 gauge x 5/32" needle See Rx Instructions .Route Qty: 200 RF: 3 Lantus Solostar U-100 Insulin 100 unit/mL (3 mL) insulin pen See Rx Instructions SQ DAILY Qty: 15 RF: 3 niacin 500 mg tablet extended release 500 mg PO HS Qty: 90 RF: 3 (DME) OneTouch Ultra Test Strip See Rx Instructions .Route Qty: 100 RF: 3 metformin 500 mg tablet 500 mg PO BID Qty: 180 RF: 3 latanoprost 0.005 % drops 1 drops OPR HS RF: 0 multivitamin [Multiple Vitamins] tablet 1 tab PO DAILY RF: 0 cholecalciferol (vitamin D3) 50 mcg (2,000 unit) tablet 2,000 units PO DAILY RF: 0 aspirin [Aspir-81] 81 mg tablet,delayed release (DR/EC) 81 mg PO 4XWK RF: 0 timolol maleate 0.5 % drops 1 drp OPR BID RF: 0 Referrals Referrals: Len Jack MD [Primary Care Provider] -
[2021-06-16 09:50] LABS: Basophils # (auto) 0.02 K/uL (0-0.2); Basophils % (auto) 0.3 %; Eosinophils % (auto) 2.9 %; Hematocrit (blood only) 42.1 % (42-52); Immature Granulocytes # (auto) 0.02 K/uL (0.00-0.02); Immature Granulocytes % (auto) 0.3 %; Lymphocytes % (auto) 24.4 %; Mean Corpuscular Hemoglobin 30.5 pg (25-34); Mean Corpuscular Hgb Conc 33.3 g/dL (32-36); Mean Corpuscular Volume 91.7 fL (80-100); Mean Platelet Volume 10.4 fL (7.4-10.4); Monocytes % (auto) 7.2 %; Neutrophils # (auto) 4.54 K/uL (1.4-6.5); Neutrophils % (auto) 64.9 %; Platelet Count 247 K/uL (130-400); RDW Coefficient of Variation 13.9 % (11.5-14.5); RDW Standard Deviation 46.5 fL (36.4-46.3); Red Blood Count 4.59 M/uL (4.7-6.1); White Blood Count 6.98 K/uL (4.8-10.8)
[2021-06-16 09:57] LABS: iSTAT Creatinine 0.9 mg/dl (0.6-1.3); iSTAT Hemoglobin 14.3 g/dl (14.0-18.0); iSTAT Ionized Calcium 1.19 mmol/l (1.12-1.32); iSTAT Potassium 4.3 mmol/L (3.3-5.0)
[2021-06-16 09:59] LABS: INR 1.1 (0.9-1.1); Partial Thromboplastin Ratio 1.4; Partial Thromboplastin Time 37.9 Seconds (21.0-31.0); Prothrombin Time 10.9 Seconds (9.0-12.0)
[2021-06-16] MEDS ORDERED: OPTIRAY 320 125ml IV ONE (10:00)
[2021-06-16 10:11] LABS: Troponin I < 0.03 ng/ml (0-0.04)
[2021-06-16 10:16] LABS: Alanine Aminotransferase 7 U/L (7-52); Albumin Globulin Ratio 1.4 (0.9-2); Alkaline Phosphatase 42 U/L (34-104); Anion Gap 7 (3-11); Aspartate Aminotransferase 16 U/L (13-39); Bilirubin,Total 0.5 mg/dl (0.2-1.0); Blood Urea Nitrogen 23 mg/dl (6-23); Calcium 9.1 mg/dl (8.5-10.1); Carbon Dioxide 26 mmol/L (21-32); Chloride 103 mmol/L (98-107); Creatinine Clr Calc Pharmacy 47.4 ml/min; Est GFR (African American) 80.9 ml/min; Est GFR (Non-African American) 69.8 ml/min; Globulin 2.8 gm/dl (2.5-4.0); Glucose 246 mg/dl (70-99(Fasting)); Magnesium 1.7 mg/dl (1.7-2.4); Potassium 4.2 mmol/L (3.5-5.1); Sodium 136 mmol/L (136-145); Total Protein 6.8 gm/dl (6.0-8.3)
--- NOTE | 2021-06-16 10:25 | XRay Report ---
XR chest 1V portable HISTORY: 89 years-old Male Stroke Like Symptoms acute strokelike symptoms COMPARISON: Chest radiographs 05/12/2019 and 05/10/2019, CTA chest 05/13/2019 TECHNIQUE: Portable AP view of the chest FINDINGS: Cardiac silhouette is enlarged. Mild bilateral hilar prominence. Pulmonary vascular congestion with i nterstitial coarsening. No pneumothorax. Suggested trace pleural effusions with mild bibasilar densit ies. The lungs are hypoinflated. Degenerative changes of the shoulders and spine. IMPRESSION: 1. Cardiomegaly with pulmonary vascular congestion. 2. Mild bibasilar densities suggestive of atelectasis. 3. Mild bilateral hilar prominence may be secondary to bronchovascular crowding versus adenopathy. ACT 112: Negative or not required by law. The above report was generated using voice recognition software. It may contain grammatical, syntax o r spelling errors. Electronically signed by: Pola Black M.D. 06/16/2021 10:23 AM
--- NOTE | 2021-06-16 10:26 | CT Scan Report ---
CT angio neck with con, CT head/brain wo con, CT angio head w con CLINICAL HISTORY: Stroke Like Symptoms TECHNIQUE: Contiguous axial CT images of the head were acquired from the base of the skull to the martita rasta without intravenous contrast administration. CT angiography of the head and neck was performed f ollowing intravenous administration of iodinated contrast. Coronal and sagittal MIPS were obtained fr om the axial data set and were submitted for review. Automated dose lowering techniques and/or adjus tment according to patient size were utilized for this examination. All measurements were calculated based on NASCET criteria. Comparison: None available at the time of this dictation. FINDINGS: CT head: Areas of decreased attenuation are present in the periventricular and subcortical white junaid er bilaterally consistent with small vessel ischemic disease. Generalized cerebral atrophy with comme nsurate enlargement of the ventricles, sulci, and cisterns is also present. There is no acute intracr anial hemorrhage or evidence of acute territorial infarction. No shift of the midline structures, mas s effect, or extra-axial abnormalities are shown. Atherosclerotic calcifications are present in the intracranial segments of the internal carotid arteries. Subcentimeter thyroid nodules are seen which do not require follow-up by ACR criteria. CTA Neck: The left common carotid artery shares common origin with the innominate artery. There is a focus of atherosclerosis most prominent at the origin of the left vertebral artery. The common steiner tid, external carotid, cervical segments of the internal carotid arteries, and the cervical segments of the vertebral arteries are patent without hemodynamically significant stenosis. The vertebral clive simone are codominant. CTA Head: The anterior and posterior cerebral circulations are patent. No hemodynamically significan t stenosis, aneurysm, dissection, or arteriovenous malformation is shown. Atherosclerotic disease is noted. IMPRESSION: 1. No acute intracranial hemorrhage, evidence of acute territorial infarction, or other acute intrac ranial disease process. 2. No occlusion, hemodynamically significant stenosis, aneurysm, dissection, or arteriovenous malfor mation in the major intracranial arteries. 3. No occlusion, hemodynamically significant stenosis, or dissection in the major cervical arteries. Assessment of stenosis of the internal carotid arteries is based on NASCET criteria. ACT 112: Negative or not required by law. Electronically signed by: Adalberto Valenzuela M.D. 06/16/2021 10:24 AM
[2021-06-16] MEDS ORDERED: ASPIRIN 300 MG SUPP PR ONE (11:15)
--- NOTE | 2021-06-16 11:29 | History & Physical Report ---
Date of Service June 16, 2021 Assessment & Plan (1) Stroke-like symptoms: Plan: -LKW 4 PM yesterday, 06/15. Patient is out of the window for TPA. -NIH score 2, mild to moderate dysarthria and smile asymmetry. -Head CT, CTA head and neck unrevealing. -MRI showed 5 mm focus of restricted diffusion involving the left paramedian esperanza is suggestive of an acute or subacute infarct and age-related involutional changes with extensive chronic microvascular ischemic disease. -Hold amlodipine in the setting of CVA without TPA administration. -Allow permissive hypertension with goal SBP <220 and DBP <110. -Lipid panel, echo, A1c ordered, pending. -Patient currently on ASA 81 mg 4x/week, will defer to neurology concerning antiplatelet therapy. -Neurology consulted, appreciate their recommendations. (2) Hypertension: Plan: -BP initially elevated today, SBP 170-180s, now BP is 145/75. BP likely elevated in the setting of acute stress as patient is very frustarted and anxious about his speech deficit. Says his SBP typically runs in the 130-140s at home. -Hold amlodipine in the setting of CVA without TPA administration. -Allow permissive hypertension with goal SBP <220 and DBP <110. (3) Hyperlipidemia: Plan: -Currently on simvastatin 20 mg. -Lipid panel ordered in a.m, can consider switching to Lipitor 40 mg pending results. (4) Type 2 diabetes mellitus: Plan: -Glucose 246 today, on Metformin and Lantus at home. A1c in April 2021 was 7.4. -d/c Metformin during admission. -Continue Lantus, patient takes 21 units in AM and 14 units in PM. -Accuchecks with sliding scale insulin with loose blood glucose control in the setting of possible CVA, BSG goal < 180. 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 Plan: SCDs ordered for DVT prophylaxis. History of Present Illness Chief Complaint: slurred speech, generalized weakness Primary Care Provider: Len Jack MD Patient is an 89-year-old male with past medical history of hypertension, hyperlipidemia, diabetes type 2, and SIADH who presents today with generalized weakness and slurred speech since last evening. Patient was vacuuming around 5 PM yesterday, 06/15, when he noticed he was feeling off balance. He states at one point he began to fall over but caught himself with a chair. Did not hit his head, neck, back or sustain any injuries during the fall. Around the same time, he noticed his speech seemed "garbled", he is having difficulty speaking clearly. This has persisted since last evening, symptoms have been consistent and have not gotten any better or worse. Denies focal weakness, loss of sensation, visual changes, confusion, chest pain, palpitations, shortness of breath, nausea, vomiting, or difficulty swallowing. During my exam, patient is very emotional, feels very frustrated by his inability to speak fluently. Both he and his say that both speech and emotional state are drastic deviations from his baseline. Patient does take a baby aspirin 4 days a week. Previously was taking 7 days a week, however cut back to 4 times a week due to report of increased bleeding. Patient states he checks his blood pressures occasionally, when they run high they are typically SBP in the 140s. He checks his sugars daily, says they usually run between 100-126. Occasionally he has sugars lower in the 60s to 70s, maybe once/month. He can usually tell when his sugars are low, and he will take a sucrose tab. Patient does take a baby aspirin 4 days a week. Work-up in the ED included labs which revealed glucose 246 and a PTT of 37.9, all other labs within normal limits. CT head showed no acute intracranial hemorrhage, evidence of acute territorial infarction, or other acute intracra nial disease process. CTA of head and neck showed no No occlusion, hemodynamically significant stenosis, aneurysm, dissection, or arteriovenous malformation in the major intracranial arteries. No occlusion, no hemodynamically significant stenosis, or dissection in the major cervical arteries. MRI revealed 5 mm focus of restricted diffusion involving the left paramedian esperanza suggestive of an acute or subacute infarct. Allergies Allergy/AdvReac Type Severity Reaction Status Date / Time naproxen Allergy Intermediate LIPS & Verified 04/10/21 12:54 CHEEKS SWELL Sulfa (Sulfonamide Allergy Mild mild Verified 04/10/21 12:54 Antibiotics) family history Home Medications Medication Instructions Recorded Confirmed Type latanoprost 0.005 % eye drops 1 drops OPR HS ml 11/21/18 06/16/21 History multivitamin (Multiple Vitamins) 1 tab PO DAILY 11/21/18 06/16/21 History cholecalciferol (vitamin D3) 50 2,000 units PO DAILY tab 06/13/19 06/16/21 History mcg (2,000 unit) tablet timolol maleate 0.5 % eye drops 1 drp OPR BID 09/13/20 06/16/21 History aspirin 81 mg tablet,delayed 81 mg PO [id number] tab 09/30/20 06/16/21 History release (Aspir-) amlodipine 5 mg tablet 5 mg PO DAILY #90 tab 11/10/20 06/16/21 Rx simvastatin 20 mg tablet 20 mg PO DAILY #90 tab 03/16/21 06/16/21 Rx insulin glargine 100 unit/mL (3 See Rx Instructions SQ DAILY #15 ml 04/13/21 06/16/21 Rx mL) subcutaneous pen (Lantus Solostar U-100 Insulin) niacin 500 mg tablet,extended 500 mg PO HS #90 tab 04/13/21 06/16/21 Rx release metformin 500 mg tablet 500 mg PO BID #180 tab 05/11/21 06/16/21 Rx Past Med/Surg History Medical History Acute cholecystitis BPH (benign prostatic hyperplasia) Diabetes Hyperlipidemia Hypertension Shingles 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 Type 2 diabetes mellitus Vitamin D deficiency Surgical History History of laparoscopic cholecystectomy S/P cataract extraction Bilateral S/P TURP Family History Mother No acute medical problems Father Prostate cancer Asthma Diabetes Denies family history of Ovarian cancer Breast cancer Lung cancer Social History Smoking Status: Unknown if ever smoked Tobacco Type: Cigarettes Age Started Using Tobacco: 21; Age Quit Using Tobacco: 36; packs per day: 1; Years Smoked: 15; Second Hand Exposure: No; Hx Alcohol Use: Yes Alcohol type: beer Alcohol Intake Frequency: Monthly or Less Hx Substance Use: No Preferred Language: Mosotho Communication Ability: Effective Visual Impairment: Limited Hearing Ability: Use of Hearing Aid Auto Bench Mechanic Required: No Beliefs That Will Affect Care: None marital status: Current Living Situation: Spouse Current Living Situation Comment: current occupational status: retired Feels Safe at Home: Yes Childhood Exposure to Second-Hand Smoke: No caffeine: No Dental Care, Regularly: Yes Physical Activity Frequency: 3-4 Times per Week Physical Activity Frequency Comment: [employer] Seatbelt Use: always Sunscreen Use: No Do you think of yourself as: straight/heterosexual Assistive Devices: Glasses, Hearing Aid - Bilateral and Walker Review of Systems Review of Systems: Constitutional: No fever, sweats or chills Eyes: No diplopia, no worsening or blurred vision ENT: sluirred speech since last evening; normal hearing, no trouble swallowing Respiratory: No cough, sputum, dyspnea at rest or on exertion Cardiovascular: No chest pain, tightness or palpitations Abdomen: No pain, nausea, vomiting, diarrhea or constipation Musculoskeletal: No joint pain, calf pain, swelling Neurologic: balance problems since last evenig, generalized weakness without focal deficit; no numbness/tingling Psychiatric: No anxiety or depression Skin: No rash or itch Physical Exam Physical Exam: General: awake, alert, patient is at times tearful but in no apparent distress Head: Normocephalic, atraumatic ENT: PERRL, EOMI, no pharyngeal exudate, mucous membranes moist Chest: Clear to auscultation, on room air, no adventitious breath sounds Cardiac: Regular rate and rhythm, no murmur, no JVD, normal peripheral pulses, good capillary refill Abdominal: NABS x 4 quadrants, soft, nontender to palpation, no rebound, guardi ng or tenderness Extremities: Normal inspection, no peripheral edema or erythema, calfs nontender to palpation Psych: Normal mood and affect Neuro: AAO x 3, strength intact bilaterally and rated 5/5, no motor deficits, speech is clear, no peripheral sensory deficits Skin: no rash or erythema Results & Data Results & Data ([facility]) Vital Signs (Past 12 Hours) Vital Signs Temp Pulse Pulse Resp BP BP Pulse Ox 06/16/21 11:04 147/78 H 06/16/21 10:54 69 18 167/72 H 94 06/16/21 10:08 73 18 145/94 H 95 06/16/21 09:20 80 18 189/76 H 95 06/16/21 09:13 36.3 C L 73 16 172/75 H 95 Laboratory Results Abnormal lab results 06/16/21 06/16/21 06/16/21 Range/Units 09:40 09:40 09:40 RBC 4.59 L (4.7-6.1) M/uL RDW Std Deviation 46.5 H (36.4-46.3) fL APTT 37.9 H (21.0-31.0) Seconds POC BUN (7-18) mg/dl BUN/Creatinine Ratio 24.0 H (10-20) Glucose 246 H (70-99(Fasting)) mg/dl POC Glucose (other) (70-99) mg/dl 06/16/21 Range/Units 09:43 RBC (4.7-6.1) M/uL RDW Std Deviation (36.4-46.3) fL APTT (21.0-31.0) Seconds POC BUN 23 H (7-18) mg/dl BUN/Creatinine Ratio (10-20) Glucose (70-99(Fasting)) mg/dl POC Glucose (other) 252 H (70-99) mg/dl Diagnostic Findings Chest X-Ray 06/16/21 09:26 XR chest 1V portable HISTORY: 89 years-old Male Stroke Like Symptoms acute strokelike symptoms COMPARISON: Chest radiographs 05/12/2019 and 05/10/2019, CTA chest 05/13/2019 TECHNIQUE: Portable AP view of the chest FINDINGS: Cardiac silhouette is enlarged. Mild bilateral hilar prominence. Pulmonary vascular congestion with interstitial coarsening. No pneumothorax. Suggested trace pleural effusions with mild bibasilar densities. The lungs are hypoinflated. Degenerative changes of the shoulders and spine. IMPRESSION: 1. Cardiomegaly with pulmonary vascular congestion. 2. Mild bibasilar densities suggestive of atelectasis. 3. Mild bilateral hilar prominence may be secondary to bronchovascular crowding versus adenopathy. ACT 112: Negative or not required by law. The above report was generated using voice recognition software. It may contain grammatical, syntax or spelling errors. Electronically signed by: Pola Black M.D. 06/16/2021 10:[address] 06/16/21 09:26 CT angio neck with con, CT head/brain wo con, CT angio head w con CLINICAL HISTORY: Stroke Like Symptoms TECHNIQUE: Contiguous axial CT images of the head were acquired from the base of the skull to the vertex without intravenous contrast administration. CT angiography of the head and neck was performed following intravenous administration of iodinated contrast. Coronal and sagittal MIPS were obtained from the axial data set and were submitted for review. Automated dose lowering techniques and/or adjustment according to patient size were utilized for this examination. All measurements were calculated based on NASCET criteria. Comparison: None available at the time of this dictation. FINDINGS: CT head: Areas of decreased attenuation are present in the periventricular and subcortical white matter bilaterally consistent with small vessel ischemic disease. Generalized cerebral atrophy with commensurate enlargement of the ventricles, sulci, and cisterns is also present. There is no acute intracranial hemorrhage or evidence of acute territorial infarction. No shift of the midline structures, mass effect, or extra-axial abnormalities are shown. Atherosclerotic calcifications are present in the intracranial segments of the internal carotid arteries. Subcentimeter thyroid nodules are seen which do not require follow-up by ACR criteria. CTA Neck: The left common carotid artery shares common origin with the innominate artery. There is a focus of atherosclerosis most prominent at the origin of the left vertebral artery. The common carotid, external carotid, cervical segments of the internal carotid arteries, and the cervical segments of the vertebral arteries are patent without hemodynamically significant stenosis. The vertebral arteries are codominant. CTA Head: The anterior and posterior cerebral circulations are patent. No hemodynamically significant stenosis, aneurysm, dissection, or arteriovenous mal formation is shown. Atherosclerotic disease is noted. IMPRESSION: 1. No acute intracranial hemorrhage, evidence of acute territorial infarction, or other acute intracranial disease process. 2. No occlusion, hemodynamically significant stenosis, aneurysm, dissection, or arteriovenous malformation in the major intracranial arteries. 3. No occlusion, hemodynamically significant stenosis, or dissection in the major cervical arteries. Assessment of stenosis of the internal carotid arteries is based on NASCET criteria. ACT 112: Negative or not required by law. Electronically signed by: Adalberto Valenzuela M.D. 06/16/2021 10:24 AM Head CTA 06/16/21 09:26 CT angio neck with con, CT head/brain wo con, CT angio head w con CLINICAL HISTORY: Stroke Like Symptoms TECHNIQUE: Contiguous axial CT images of the head were acquired from the base of the skull to the vertex without intravenous contrast administration. CT angiography of the head and neck was performed following intravenous administration of iodinated contrast. Coronal and sagittal MIPS were obtained from the axial data set and were submitted for review. Automated dose lowering techniques and/or adjustment according to patient size were utilized for this examination. All measurements were calculated based on NASCET criteria. Comparison: None available at the time of this dictation. FINDINGS: CT head: Areas of decreased attenuation are present in the periventricular and subcortical white matter bilaterally consistent with small vessel ischemic disease. Generalized cerebral atrophy with commensurate enlargement of the ventricles, sulci, and cisterns is also present. There is no acute intracranial hemorrhage or evidence of acute territorial infarction. No shift of the midline structures, mass effect, or extra-axial abnormalities are shown. Atherosclerotic calcifications are present in the intracranial segments of the internal carotid arteries. Subcentimeter thyroid nodules are seen which do not require follow-up by ACR criteria. CTA Neck: The left common carotid artery shares common origin with the innominate artery. There is a focus of atherosclerosis most prominent at the origin of the left vertebral artery. The common carotid, external carotid, cervical segments of the internal carotid arteries, and the cervical segments of the vertebral arteries are patent without hemodynamically significant stenosis. The vertebral arteries are codominant. CTA Head: The anterior and posterior cerebral circulations are patent. No hemodynamically significant stenosis, aneurysm, dissection, or arteriovenous malformation is shown. Atherosclerotic disease is noted. IMPRESSION: 1. No acute intracranial hemorrhage, evidence of acute territorial infarction, or other acute intracranial disease process. 2. No occlusion, hemodynamically significant stenosis, aneurysm, dissection, or arteriovenous malformation in the major intracranial arteries. 3. No occlusion, hemodynamically significant stenosis, or dissection in the major cervical arteries. Assessment of stenosis of the internal carotid arteries is based on NASCET criteria. ACT 112: Negative or not required by law. Electronically signed by: Adalberto Valenzuela M.D. 06/16/2021 10:24 AM Neck CTA 06/16/21 09:26 CT angio neck with con, CT head/brain wo con, CT angio head w con CLINICAL HISTORY: Stroke Like Symptoms TECHNIQUE: Contiguous axial CT images of the head were acquired from the base of the skull to the vertex without intravenous contrast administration. CT angiography of the head and neck was performed following intravenous administration of iodinated contrast. Coronal and sagittal MIPS were obtained from the axial data set and were submitted for review. Automated dose lowering techniques and/or adjustment according to patient size were utilized for this examination. All measurements were calculated based on NASCET criteria. Comparison: None available at the time of this dictation. FINDINGS: CT head: Areas of decreased attenuation are present in the periventricular and subcortical white matter bilaterally consistent with small vessel ischemic disease. Generalized cerebral atrophy with commensurate enlargement of the ventricles, sulci, and cisterns is also present. There is no acute intracranial hemorrhage or evidence of acute territorial infarction. No shift of the midline structures, mass effect, or extra-axial abnormalities are shown. Atherosclerotic calcifications are present in the intracranial segments of the internal carotid arteries. Subcentimeter thyroid nodules are seen which do not require follow-up by ACR criteria. CTA Neck: The left common carotid artery shares common origin with the i nnominate artery. There is a focus of atherosclerosis most prominent at the origin of the left vertebral artery. The common carotid, external carotid, cervical segments of the internal carotid arteries, and the cervical segments of the vertebral arteries are patent without hemodynamically significant stenosis. The vertebral arteries are codominant. CTA Head: The anterior and posterior cerebral circulations are patent. No hemodynamically significant stenosis, aneurysm, dissection, or arteriovenous malformation is shown. Atherosclerotic disease is noted. IMPRESSION: 1. No acute intracranial hemorrhage, evidence of acute territorial infarction, or other acute intracranial disease process. 2. No occlusion, hemodynamically significant stenosis, aneurysm, dissection, or arteriovenous malformation in the major intracranial arteries. 3. No occlusion, hemodynamically significant stenosis, or dissection in the major cervical arteries. Assessment of stenosis of the internal carotid arteries is based on NASCET criteria. ACT 112: Negative or not required by law. Electronically signed by: Adalberto Valenzuela M.D. 06/16/2021 10:24 AM Brain MRI 06/16/21 13:29 MR brain wo con HISTORY: 89 years-old Male ? CVA acute strokelike symptoms COMPARISON: CT head, CTA head and neck of same day, brain MRI 09/30/2017 TECHNIQUE: Multiplanar multisequence MRI of the brain was obtained without the use of IV contrast. FINDINGS: Stenographer Secretary localizer images demonstrate no gross extracranial abnormality. The midline structures appear unremarkable. Discogenic degenerative changes of the cervical spine. No pathologic blooming artifact. Motion degraded exam. There is a subcentimeter focus rof increased diffusion-weighted signal within the left pontine brainstem on image 8 series 4 measuring up to 5 mm which demonstrate decreased signal on ADC map. No acute intracranial hemorrhage, midline shift, abnormal extra axial collection, hydrocephalus or intracranial mass. Age-related involutional changes. Extensive T2/FLAIR hyperintense foci are noted throughout the white matter. No pathologic blooming artifact. The cerebral venous sinuses and major arterial flow voids appear patent. Prior bilateral lens repair. Mastoid air cells and paranasal sinuses are generally clear. The skull and soft tissues are unremarkable. IMPRESSION: 1. 5 mm focus of restricted diffusion involving the left paramedian esperanza is suggestive of an acute or subacute infarct. 2. Age-related involutional changes with extensive chronic microvascular ischemic disease. ACT 112: Negative or not required by law. The above report was generated using voice recognition software. It may contain grammatical, syntax or spelling errors. Electronically signed by: Pola Black M.D. 06/16/2021 2:59 PM ECG Additional Comments: Normal sinus rhythm Normal ECG When compared with ECG of 10-MAY-2019 21:01, Premature atrial complexes are no longer Present Nonspecific T wave abnormality, improved in Inferior leads Code Status & VTE Plan Code Status Full Code Supervising Physician Co-Signing Physician Notes Patient seen and examined, chart reviewed, case discussed with Neli Jurado and I agree with the assessment and plan as above except as otherwise noted General: A&Ox3. NAD. Dysarthric HEENT: Atraumatic, normocephalic. Vision/hearing grossly intact. Pulm: CTAB A&P. -wheezes, -rales, -rhonchi. Symmetrical chest rise. No increase in work of breathing. No respiratory distress. Cardiac: RRR, -mrg. Radial pulses intact and symmetrical. Abdominal: Nontender, nondistended, soft. BS present. Neuro: Moves all extremities equally, globalized 4+/5 strength without focal deficit, sensation to soft touch intact in hands and feet. Labs and images reviewed Petr is an 89-year-old male who presents with dysarthria and globalized weakness without other focal neurologic deficit. Initial CT negative, follow-up MRI shows 5mm pontine stroke. Altepase was not indicated based on onset of symptoms. Patient has taken aspirin approximately 4 times per week. Recommend upgrading simvastatin to atorvastatin pending lipid results (normal to borderline low LDL in the past), and likely conversion of aspirin to Plavix. Permissive hypertension overnight. Echo pending. A1c pending. Neuro consulted. PG Care Time/CCT Total # of Minutes Spent Total Time Spent with Patient: Total time spent is greater than 50% in coordination of care (as documented) at patient's floor/unit and/or counseling patient: Coding Level of Care Code None Diagnoses Stroke-like symptoms R29.90 Hypertension I10 Hyperlipidemia E78.2 Hyperlipidemia type: mixed hyperlipidemia Type 2 diabetes mellitus E11.9 Diabetes mellitus senior care insulin use: with senior care use SIADH (syndrome of inappropriate ADH production) E22.2 (1) Type 2 diabetes mellitus Diabetes mellitus senior care insulin use: with senior care use (2) Hyperlipidemia Hyperlipidemia type: mixed hyperlipidemia Qualified Code(s): E78.2 - Mixed hyperlipidemia
--- NOTE | 2021-06-16 11:56 | Electrocardiogram Report ---
Test Reason : Blood Pressure : / mmHG Vent. Rate : 071 BPM Atrial Rate : 071 BPM P-R Int : 190 ms QRS Dur : 086 ms QT Int : 392 ms P-R-T Axes : 028 -18 051 degrees QTc Int : 425 ms Normal sinus rhythm Minor Nonspecific T wave abnormality Inferior leads Abnormal ECG When compared with ECG of 10-MAY-2019 21:01, Premature atrial complexes are no longer Present No significant change Confirmed by Nj Leija ([id number]) on 06/16/2021 11:55:49 AM Referred By: REFERRED SELF Confirmed By:Nj Leija
--- NOTE | 2021-06-16 15:00 | Magnetic Resonance Report ---
MR brain wo con HISTORY: 89 years-old Male ? CVA acute strokelike symptoms COMPARISON: CT head, CTA head and neck of same day, brain MRI 09/30/2017 TECHNIQUE: Multiplanar multisequence MRI of the brain was obtained without the use of IV contrast. FINDINGS: Acute Care Registered Nurse localizer images demonstrate no gross extracranial abnormality. The midline structures appear u nremarkable. Discogenic degenerative changes of the cervical spine. No pathologic blooming artifact. Motion degraded exam. There is a subcentimeter focus rof increased diffusion-weighted signal within t he left pontine brainstem on image 8 series 4 measuring up to 5 mm which demonstrate decreased signal on ADC map. No acute intracranial hemorrhage, midline shift, abnormal extra axial collection, hydrocephalus or in tracranial mass. Age-related involutional changes. Extensive T2/FLAIR hyperintense foci are noted thr oughout the white matter. No pathologic blooming artifact. The cerebral venous sinuses and major clive rial flow voids appear patent. Prior bilateral lens repair. Mastoid air cells and paranasal sinuses a re generally clear. The skull and soft tissues are unremarkable. IMPRESSION: 1. 5 mm focus of restricted diffusion involving the left paramedian esperanza is suggestive of an acute or subacute infarct. 2. Age-related involutional changes with extensive chronic microvascular ischemic disease. ACT 112: Negative or not required by law. The above report was generated using voice recognition software. It may contain grammatical, syntax o r spelling errors. Electronically signed by: Pola Black M.D. 06/16/2021 2:59 PM
[2021-06-16] MEDS ORDERED: ONDANSETRON INJ 2 MG/ML 2 ML VIAL IV PRN (18:06)
[2021-06-16] MEDS ORDERED: POLYETHYLENE (MIRALAX) 17 GM PACK PO PRN (18:06)
[2021-06-16] MEDS ORDERED: NIACIN EXTENDED REL 500 MG TABCR PO SCH (21:00)
[2021-06-16] MEDS ORDERED: LATANOPROST 0.005% OP SOLN 2.5 ML BTL OPR SCH (21:00)
[2021-06-16] MEDS ORDERED: TIMOLOL MALEATE 0.5% OP SCH (21:00)
[2021-06-16] MEDS ORDERED: DEXTROSE 50% 50 ML SYRINGE IV PRN (21:15)
[2021-06-16] MEDS ORDERED: GLUCAGON FOR INJ 1 MG VIAL IM PRN (21:15)
[2021-06-16] MEDS ORDERED: CARBOHYDRATES FOR HYPOGLYCEMIA PO PRN (21:15)
[2021-06-16] MEDS ORDERED: GLUCOSE 40% GEL 15 GM TUBE PO PRN (21:15)
[2021-06-16] MEDS ORDERED: GLUCOSE 10 TABS/TUBE PO PRN (21:15)
[2021-06-16] MEDS ORDERED: PHARMACY GLYCEMIC MGMT CONSULT PRN (21:26)
[2021-06-16] MEDS ORDERED: INSULIN GLARGINE SOLOSTAR 100 UNITS/ML 3 ML PEN SQ SCH (22:00)
[2021-06-16] MEDS: TIMOLOL MALEATE 0.5% OPR SCH (22:24)
[2021-06-17] MEDS: INSULIN ASPART PER UNIT SC SCH ×3 (00:05→13:02)
[2021-06-17 06:37] LABS: Chol HDL Ratio 3.5 (0-5)
[2021-06-17 06:50] LABS: Estimated Average Glucose 169 mg/dl; Hemoglobin A1C 7.5 % (4.5-5.6)
[2021-06-17 08:24] LABS: Hematocrit (blood only) 42.8 % (42-52); Hemoglobin 14.3 g/dL (14.0-18.0); Mean Corpuscular Hemoglobin 30.2 pg (25-34); Mean Corpuscular Hgb Conc 33.4 g/dL (32-36); Mean Corpuscular Volume 90.5 fL (80-100); Mean Platelet Volume 10.9 fL (7.4-10.4); Platelet Count 238 K/uL (130-400); RDW Coefficient of Variation 13.8 % (11.5-14.5); RDW Standard Deviation 45.6 fL (36.4-46.3); Red Blood Count 4.73 M/uL (4.7-6.1); White Blood Count 8.07 K/uL (4.8-10.8)
[2021-06-17 08:31] LABS: BUN Creatinine Ratio 19.3 (10-20); Calcium 8.8 mg/dl (8.5-10.1); Creatinine Clr Calc Pharmacy 51.1 ml/min; Est GFR (African American) 88.3 ml/min; Est GFR (Non-African American) 76.2 ml/min; Magnesium 1.9 mg/dl (1.7-2.4); Potassium 3.9 mmol/L (3.5-5.1)
--- NOTE | 2021-06-17 08:50 | Neurology Consultation ---
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 The etiology of this stroke is likely small vessel ischemic disease secondary to diabetic and/or hypertensive vascular changes. This happened despite aspirin. Currently, his symptoms are mild and improving. He has had previous small vessel ischemia to the right 3rd nerve back in 2018 which improved. Patient has some depression following this stroke. Patient has anisocoria on exam, likely due to eyedrop medication in the right eye for glaucoma. Recommendations: 1. awaiting echocardiogram. 2. Control blood pressure as you are doing, aiming for a mean arterial pressure of 95-100. 3. control glucose better trying to decrease the hemoglobin A1c to less than 7. 4. Patient given his age and lipid profile is not a high dose statin candidate. 5. initiate clopidogrel 75 milligrams daily and discontinue 81 milligram aspirin. 6. Consider fluoxetine 10 or 20 milligrams daily for depression post stroke. Overall, I spent a total of 60 minutes with this case including review of records, review of MRI films, direct evaluation the patient at bedside, and discussion of the case with the patient an RN at bedside, and Dr. Londono, including differential diagnosis and treatment options. History of Present Illness Reason for Consultation: patient is a an 89-year-old, who I was asked to see the request of Neli Jurado PA-C, for neurologic consultation regarding stroke. Requesting Physician: Neli Jurado PA-C Attending Physician: Niles Londono DO History of Present Illness This patient has a history of hypertension, type 2 diabetes, dyslipidemia, and SIADH, currently stable. he has been on 81 milligram aspirin tablet 4 times a week for the last 10 years ( more gave him increased bleeding and bruising). He also was on simvastatin 20 milligrams daily In September of 2017, patient had acute onset double vision and was evaluated by Dr. 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 The patient tells me that this double vision cleared up by 10 days. He has not had double vision since. The patient also has had glaucoma in the right eye and bilateral cataract surgery. Patient was vacuuming in the early evening of June 15. He had sudden onset of generalized weakness and slurred speech. His wanted him to go to the emergency room but he decided not to. The next morning he felt "worse" and came to the emergency room. He arrived June 16 at 09:13 with a temperature 36.3, pulse 73 and regular, respiratory rate 16, blood pressure 172/75, and O2 saturation 95 percent. Clinically he was found to have slightly slurred speech and no focal or obvious weakness. CBC and Chem profile were unremarkable except for glucose of 240. Chest x-ray showed some cardiomegaly and atelectasis at the bases bilaterally. CT scan of the head was unremarkable. CT angiography of the head and neck were unremarkable without any significant vascular stenoses or anomalies. MRI of the brain revealed a 5 millimeter left para median pontine acute infarct. The brain in general had significant generalized atrophy and moderate old small vessel ischemic disease. I reviewed these films. Today, the patient's blood pressure is 152/68 with a pulse in the 50s. He remains afebrile. Hemoglobin A1c was 7.5. Triglycerides were 99 a cholesterol 128. Clinically he feels better today. He is not as weak and his speech is less slurred. He has upset and tearful however because he felt he did not go to the hospital when he should and the fact that he has a stroke. Allergies Allergy/AdvReac Type Severity Reaction Status Date / Time naproxen Allergy Intermediate LIPS & Verified 04/10/21 12:54 CHEEKS SWELL Sulfa (Sulfonamide Allergy Mild mild Verified 04/10/21 12:54 Antibiotics) family history Home Medications Medication Instructions Recorded Confirmed Type latanoprost 0.005 % eye drops 1 drops OPR HS ml 11/21/18 06/16/21 History multivitamin (Multiple Vitamins) 1 tab PO DAILY 11/21/18 06/16/21 History cholecalciferol (vitamin D3) 50 2,000 units PO DAILY tab 06/13/19 06/16/21 History mcg (2,000 unit) tablet timolol maleate 0.5 % eye drops 1 drp OPR BID 09/13/20 06/16/21 History aspirin 81 mg tablet,delayed 81 mg PO [id number] tab 09/30/20 06/16/21 History release (Aspir-) amlodipine 5 mg tablet 5 mg PO DAILY #90 tab 11/10/20 06/16/21 Rx simvastatin 20 mg tablet 20 mg PO DAILY #90 tab 03/16/21 06/16/21 Rx insulin glargine 100 unit/mL (3 See Rx Instructions SQ DAILY #15 ml 04/13/21 06/16/21 Rx mL) subcutaneous pen (Lantus Solostar U-100 Insulin) niacin 500 mg tablet,extended 500 mg PO HS #90 tab 04/13/21 06/16/21 Rx release metformin 500 mg tablet 500 mg PO BID #180 tab 05/11/21 06/16/21 Rx Patient History Medical History (Updated 06/17/21 @ 13:29 by Gregg Noel MD) Acute cholecystitis BPH (benign prostatic hyperplasia) Diabetes Hyperlipidemia Hypertension Shingles 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 Type 2 diabetes mellitus Vitamin D deficiency Surgical History History of laparoscopic cholecystectomy S/P cataract extraction Bilateral S/P TURP Family History Mother , age 95 No acute medical problems Father , age 82 of prostate cancer Prostate cancer Asthma Diabetes Denies family history of Ovarian cancer Breast cancer Lung cancer Social History (Updated 06/17/21 @ 09:49 by Gregg Noel MD) Smoking Status: Unknown if ever smoked Tobacco Type: Cigarettes Age Started Using Tobacco: 21; Age Quit Using Tobacco: 36; packs per day: 1; Years Smoked: 15; Second Hand Exposure: No; Hx Alcohol Use: Yes Alcohol type: beer Alcohol Intake Frequency: Monthly or Less Hx Substance Use: No Preferred Language: Ghanaian Communication Ability: Effective Visual Impairment: Limited Hearing Ability: Use of Hearing Aid Civil Manager Required: No Beliefs That Will Affect Care: None marital status: Current Living Situation: Spouse Current Living Situation Comment: current occupational status: retired 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, 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 [employer] Feels Safe at Home: Yes Childhood Exposure to Second-Hand Smoke: No caffeine: No Dental Care, Regularly: Yes Physical Activity Frequency: 3-4 Times per Week Physical Activity Frequency Comment: [employer] Seatbelt Use: always Sunscreen Use: No Do you think of yourself as: straight/heterosexual Assistive Devices: Glasses Review of Systems Constitutional: + fatigue and + weakness; no fever Eyes: no diplopia, no eye pain and no worsening vision Ear, Nose, Mouth, Throat: no ear pain, no tinnitus, no hearing loss, no dizziness, no snoring, no hoarseness and no dysphagia Respiratory: no cough and no dyspnea Cardiovascular: no chest pain, no palpitations and no lightheadedness Gastrointestinal: no abdominal pain, no nausea and no vomiting Musculoskeletal: no back pain, no neck pain, no radicular pain, no joint pain and no myalgia Integumentary: no rash and no lesions Neurologic: + generalized weakness; no gait abnormality, no localized weakness, no tingling, no numbness, no tremor(s), no abnormal movements, no headache(s), no abnormal speech, no confusion and no memory loss Psychiatric: + depression; no irritability, no anxiety, no difficulty concentrating, no confusion and no hallucinations Endocrine: no fatigue and no flushing Hematologic / Lymphatic: no easy bleeding and no easy bruising Allergy / Immunological: no urticaria and no problem reported Exam (Neuro) Physical Exam: The patient is right-handed. The patient is awake, alert, and attentive. Speech is mildly dysarthric but without aphasia. The patient can name objects, repeat phrases, and has normal spontaneous speech. Mentation and thought processes are intact, with orientation to person, place and time, and normal fund of knowledge. Attention and concentration are normal. Mood is down and he gets tearful, but his affect is appropriate. General appearance and grooming are normal. Short and long-term memory are reasonable to conversation. Pupils are 5 mm on the right and 3 millimeters on the left both were reactive to light. Extraocular eye muscles are intact without nystagmus. Visual acuity and visual griffin seem normal grossly to confrontation. There are no deficits to sensation in the face in all 3 distributions of the fifth cranial nerve bilaterally. Corneal reflexes are positive bilaterally. Facial strength and symmetry was normal bilaterally. Hearing seems normal bilaterally. Palate moves well without asymmetry. There is normal sternocleidomastoid and trapezius (shoulder shrug) strength bilaterally. Tongue is midline with good strength bilaterally. Neck has a full range of motion without discomfort. There are no cervical bruits bilaterally. There are no cranial or ocular bruits. Heart is without murmur. There is a regular rhythm and rate. Cervical, thoracic, and lumbar spine are nontender to palpation. Gait was not tested but stance sitting up in bed was reasonable With outstretched arms there is no drift. There are no resting, postural, or action tremors. There is no ataxia with finger to nose testing. There is decreased facility in the right hand compared to the left which was normal. No other abnormal involuntary movements are noted. 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 Motor strength is 4+/5 diffusely in the right upper extremity diffusely. Lower extremity strength is 5/5 diffusely both proximally and distally. The limbs have good tone without rigidity or spasticity. There is no atrophy noted in the muscles. Muscle bulk is normal, there is no tenderness to palpation, no myotonia to percussion, and no fasciculations seen. Sensory examination is intact to touch and pin throughout all 4 limbs diffusely. Reflexes are 0/4 in the biceps, triceps, brachioradialis, quadriceps, and Achilles tendons bilaterally. There is no clonus bilaterally. Toes are downgoing with plantar stimulation bilaterally. Peripheral pulses are present and of normal quality distally in all 4 limbs. There is no peripheral edema noted in the limbs. Results & Data ([facility]) Vital Signs (Past 12 Hours) Vital Signs Temp Pulse Resp BP Pulse Ox 06/17/21 07:44 36.8 C 52 L 16 152/68 H 92 06/16/21 22:55 36.8 C 70 18 172/75 H 94 PG Care Time/CCT Total # of Minutes Spent Total Time Spent with Patient: Total time spent is greater than 50% in coordination of care (as documented) at patient's floor/unit and/or counseling patient: Coding Level of Care Code 54441 Office/OBS Consult Lvl 4 Diagnoses Left pontine stroke I63.9 Weakness R53.1 Dysarthria R47.1 Diabetes E11.9 Hypertension I10 Depression F32.A
[2021-06-17] MEDS ORDERED: INSULIN GLARGINE SOLOSTAR 100 UNITS/ML 3 ML PEN SC SCH (09:00)
[2021-06-17] MEDS ORDERED: CHOLECALCIFEROL 1,000 UNITS 25 MCG TAB PO SCH (09:00)
[2021-06-17] MEDS ORDERED: INSULIN GLARGINE SOLOSTAR 100 UNITS/ML 3 ML PEN SQ SCH (09:00)
[2021-06-17] MEDS ORDERED: ATORVASTATIN 40 MG TAB PO SCH (09:00)
[2021-06-17] MEDS ORDERED: TIMOLOL MALEATE 0.5% OPR SCH (09:00)
[2021-06-17] MEDS: TIMOLOL MALEATE 0.5% OPR SCH (09:50)
--- NOTE | 2021-06-17 15:16 | Pharmacy Report ---
Pharmacy Glycemic Short Note 2 - Date of Service June 17, 2021 - Glycemic Short BSG Results (Last 24 hours): 06/16/21 06/16/21 06/17/21 21:14 21:32 00:04 Glucose POC Glucose 65 L* 81 149 H 06/17/21 06/17/21 06/17/21 05:55 05:59 11:31 Glucose 141 H POC Glucose 134 H 243 H OUTPATIENT ANTIDIABETIC REGIMEN: * Lantus 21 units SQ qAM, 14 units SQ qPM * Metformin 500 mg PO BID * A1c = 7.5% ASSESSMENT: * Home dose of 35 units per day will be split into 50% basal + 50% bolus. Will titrate as needed. PLAN FOR INPATIENT GLYCEMIC CONTROL: * Hold outpatient oral diabetes medications * Basal insulin * Lantus 10 units SQ BID * Bolus insulin * NovoLog per scale ACHS or Q6hrs while NPO * Goal Range: Low 120 mg/dL - High 150 mg/dL * Correction Factor: 35 mg/dL/unit * Nutritional / Prandial insulin per carb ratio of 1 unit per 12 grams CHO consumed PLAN FOR DISCHARGE: * A1c of 7.5% is acceptable
[2021-06-17] MEDS ORDERED: INSULIN ASPART PER UNIT SC SCH (16:30)
--- NOTE | 2021-06-17 18:01 | Discharge Summary ---
Date of Service June 17, 2021 Admission HPI Per Admitting Provider Patient is an 89-year-old male with past medical history of hypertension, hyperlipidemia, diabetes type 2, and SIADH who presents today with generalized weakness and slurred speech since last evening. Patient was vacuuming around 5 PM yesterday, 06/15, when he noticed he was feeling off balance. He states at one point he began to fall over but caught himself with a chair. Did not hit his head, neck, back or sustain any injuries during the fall. Around the same time, he noticed his speech seemed "garbled", he is having difficulty speaking clearly. This has persisted since last evening, symptoms have been consistent and have not gotten any better or worse. Denies focal weakness, loss of sensation, visual changes, confusion, chest pain, palpitations, shortness of breath, nausea, vomiting, or difficulty swallowing. During my exam, patient is very emotional, feels very frustrated by his inability to speak fluently. Both he and his say that both speech and emotional state are drastic deviations from his baseline. Patient does take a baby aspirin 4 days a week. Previously was taking 7 days a week, however cut back to 4 times a week due to report of increased bleeding. Patient states he checks his blood pressures occasionally, when they run high they are typically SBP in the 140s. He checks his sugars daily, says they usually run between 100-126. Occasionally he has sugars lower in the 60s to 70s, maybe once/month. He can usually tell when his sugars are low, and he will take a sucrose tab. Patient does take a baby aspirin 4 days a week. Work-up in the ED included labs which revealed glucose 246 and a PTT of 37.9, all other labs within normal limits. CT head showed no acute intracranial hemorrhage, evidence of acute territorial infarction, or other acute intracranial disease process. CTA of head and neck showed no No occlusion, hemodynamically significant stenosis, aneurysm, dissection, or arteriovenous malformation in the major intracranial arteries. No occlusion, no hem odynamically significant stenosis, or dissection in the major cervical arteries. MRI revealed 5 mm focus of restricted diffusion involving the left paramedian esperanza suggestive of an acute or subacute infarct. Admission Exam Per Admitting Provider General: awake, alert, patient is at times tearful but in no apparent distress Head: Normocephalic, atraumatic ENT: PERRL, EOMI, no pharyngeal exudate, mucous membranes moist Chest: Clear to auscultation, on room air, no adventitious breath sounds Cardiac: Regular rate and rhythm, no murmur, no JVD, normal peripheral pulses, good capillary refill Abdominal: NABS x 4 quadrants, soft, nontender to palpation, no rebound, guarding or tenderness Extremities: Normal inspection, no peripheral edema or erythema, calfs nontender to palpation Psych: Normal mood and affect Neuro: AAO x 3, strength intact bilaterally and rated 5/5, no motor deficits, speech is clear, no peripheral sensory deficits Skin: no rash or erythema Principal Diagnosis acute pontine stroke Discharge Exam General: Grossly A&O. NAD. Cooperative. HEENT: Atraumatic, normocephalic. EOMI. PERRL. Pulm: CTAB. -wheezes, -rales, -rhonchi. Symmetrical chest rise. No respiratory distress. Cardiac: RRR, -mrg. Radial pulses intact and symmetrical. Abdominal: Nontender, nondistended, soft. Neuro: CN II-XII intact. 4+/5 BUE strength, 5+/5 BLE strength. Normal sensation of extremities. No dysmetria. + mild dysarthria. Discharge Data Allergies Allergy/AdvReac Type Severity Reaction Status Date / Time naproxen Allergy Intermediate LIPS & Verified 04/10/21 12:54 CHEEKS SWELL Sulfa (Sulfonamide Allergy Mild mild Verified 04/10/21 12:54 Antibiotics) family history Consultations 06/16/21 11:24 ED Decision to Admit Stat 06/16/21 15:19 Consult Neurology Routine Ordered Studies 06/17/21 05:55 06/17/21 05:55 Lipids 06/17/21 Range/Units 05:55 Triglycerides 99 (0-150) mg/dl Cholesterol 128 (0-200) mg/dl HDL Cholesterol 37 mg/dl Cholesterol/HDL Ratio 3.5 (0-5) CBC 06/17/21 Range/Units 05:55 WBC 8.07 (4.8-10.8) K/uL RBC 4.73 (4.7-6.1) M/uL Hgb 14.3 (14.0-18.0) g/dL Hct 42.8 (42-52) % Plt Count 238 (130-400) K/uL Comprehensive Metabolic Panel 06/17/21 Range/Units 05:55 Sodium 136 (136-145) mmol/L Potassium 3.9 (3.5-5.1) mmol/L Chloride 103 (98-107) mmol/L Carbon Dioxide 26 (21-32) mmol/L BUN 17 (6-23) mg/dl Creatinine 0.88 (0.6-1.4) mg/dl Glucose 141 H (70-99(Fasting)) mg/dl Calcium 8.8 (8.5-10.1) mg/dl Intake and Output 06/17/21 06/17/21 06/17/21 06:59 14:59 22:59 Intake Total 120 / 495 375 / 495 Output Total 300 / 500 150 / 150 Balance -300 / 0 120 / 345 225 / 345 Intake: Oral 120 / 495 375 / 495 Output: Urine 300 / 500 150 / 150 Other: Other Intake Source NPO Weight 73.4 kg Patient Weight 06/18/21 06:59 Weight 73.4 kg Chest X-Ray 06/16/21 09:26 XR chest 1V portable HISTORY: 89 years-old Male Stroke Like Symptoms acute strokelike symptoms COMPARISON: Chest radiographs 05/12/2019 and 05/10/2019, CTA chest 05/13/2019 TECHNIQUE: Portable AP view of the chest FINDINGS: Cardiac silhouette is enlarged. Mild bilateral hilar prominence. Pulmonary vascular congestion with interstitial coarsening. No pneumothorax. Suggested trace pleural effusions with mild bibasilar densities. The lungs are hypoinflated. Degenerative changes of the shoulders and spine. IMPRESSION: 1. Cardiomegaly with pulmonary vascular congestion. 2. Mild bibasilar densities suggestive of atelectasis. 3. Mild bilateral hilar prominence may be secondary to bronchovascular crowding versus adenopathy. ACT 112: Negative or not required by law. The above report was generated using voice recognition software. It may contain grammatical, syntax or spelling errors. Electronically signed by: Pola Black M.D. 06/16/2021 10:[address] 06/16/21 09:26 CT angio neck with con, CT head/brain wo con, CT angio head w con CLINICAL HISTORY: Stroke Like Symptoms TECHNIQUE: Contiguous axial CT images of the head were acquired from the base of the skull to the vertex without intravenous contrast administration. CT angiography of the head and neck was performed following intravenous administration of iodinated contrast. Coronal and sagittal MIPS were obtained from the axial data set and were submitted for review. Automated dose lowering techniques and/or adjustment according to patient size were utilized for this examination. All measurements were calculated based on NASCET criteria. Comparison: None available at the time of this dictation. FINDINGS: CT head: Areas of decreased attenuation are present in the periventricular and s ubcortical white matter bilaterally consistent with small vessel ischemic disease. Generalized cerebral atrophy with commensurate enlargement of the ventricles, sulci, and cisterns is also present. There is no acute intracranial hemorrhage or evidence of acute territorial infarction. No shift of the midline structures, mass effect, or extra-axial abnormalities are shown. Atherosclerotic calcifications are present in the intracranial segments of the internal carotid arteries. Subcentimeter thyroid nodules are seen which do not require follow-up by ACR criteria. CTA Neck: The left common carotid artery shares common origin with the innominate artery. There is a focus of atherosclerosis most prominent at the origin of the left vertebral artery. The common carotid, external carotid, cer vical segments of the internal carotid arteries, and the cervical segments of the vertebral arteries are patent without hemodynamically significant stenosis. The vertebral arteries are codominant. CTA Head: The anterior and posterior cerebral circulations are patent. No hemodynamically significant stenosis, aneurysm, dissection, or arteriovenous malformation is shown. Atherosclerotic disease is noted. IMPRESSION: 1. No acute intracranial hemorrhage, evidence of acute territorial infarction, or other acute intracranial disease process. 2. No occlusion, hemodynamically significant stenosis, aneurysm, dissection, or arteriovenous malformation in the major intracranial arteries. 3. No occlusion, hemodynamically significant stenosis, or dissection in the major cervical arteries. Assessment of stenosis of the internal carotid arteries is based on NASCET criteria. ACT 112: Negative or not required by law. Electronically signed by: Adalberto Valenzuela M.D. 06/16/2021 10:24 AM Head CTA 06/16/21 09:26 CT angio neck with con, CT head/brain wo con, CT angio head w con CLINICAL HISTORY: Stroke Like Symptoms TECHNIQUE: Contiguous axial CT images of the head were acquired from the base of the skull to the vertex without intravenous contrast administration. CT angiography of the head and neck was performed following intravenous administra tion of iodinated contrast. Coronal and sagittal MIPS were obtained from the axial data set and were submitted for review. Automated dose lowering techniques and/or adjustment according to patient size were utilized for this examination. All measurements were calculated based on NASCET criteria. Comparison: None available at the time of this dictation. FINDINGS: CT head: Areas of decreased attenuation are present in the periventricular and subcortical white matter bilaterally consistent with small vessel ischemic disease. Generalized cerebral atrophy with commensurate enlargement of the ventricles, sulci, and cisterns is also present. There is no acute intracranial hemorrhage or evidence of acute territorial infarction. No shift of the midline structures, mass effect, or extra-axial abnormalities are shown. Atherosclerotic calcifications are present in the intracranial segments of the internal carotid arteries. Subcentimeter thyroid nodules are seen which do not require follow-up by ACR criteria. CTA Neck: The left common carotid artery shares common origin with the i nnominate artery. There is a focus of atherosclerosis most prominent at the origin of the left vertebral artery. The common carotid, external carotid, cervical segments of the internal carotid arteries, and the cervical segments of the vertebral arteries are patent without hemodynamically significant stenosis. The vertebral arteries are codominant. CTA Head: The anterior and posterior cerebral circulations are patent. No hemodynamically significant stenosis, aneurysm, dissection, or arteriovenous malformation is shown. Atherosclerotic disease is noted. IMPRESSION: 1. No acute intracranial hemorrhage, evidence of acute territorial infarction, or other acute intracranial disease process. 2. No occlusion, hemodynamically significant stenosis, aneurysm, dissection, or arteriovenous malformation in the major intracranial arteries. 3. No occlusion, hemodynamically significant stenosis, or dissection in the major cervical arteries. Assessment of stenosis of the internal carotid arteries is based on NASCET criteria. ACT 112: Negative or not required by law. Electronically signed by: Adalberto Valenzuela M.D. 06/16/2021 10:24 AM Neck CTA 06/16/21 09:26 CT angio neck with con, CT head/brain wo con, CT angio head w con CLINICAL HISTORY: Stroke Like Symptoms TECHNIQUE: Contiguous axial CT images of the head were acquired from the base of the skull to the vertex without intravenous contrast administration. CT angiography of the head and neck was performed following intravenous administration of iodinated contrast. Coronal and sagittal MIPS were obtained from the axial data set and were submitted for review. Automated dose lowering techniques and/or adjustment according to patient size were utilized for this examination. All measurements were calculated based on NASCET criteria. Comparison: None available at the time of this dictation. FINDINGS: CT head: Areas of decreased attenuation are present in the periventricular and subcortical white matter bilaterally consistent with small vessel ischemic disease. Generalized cerebral atrophy with commensurate enlargement of the ventricles, sulci, and cisterns is also present. There is no acute intracranial hemorrhage or evidence of acute territorial infarction. No shift of the midline structures, mass effect, or extra-axial abnormalities are shown. Atherosclerotic calcifications are present in the intracranial segments of the internal carotid arteries. Subcentimeter thyroid nodules are seen which do not require follow-up by ACR criteria. CTA Neck: The left common carotid artery shares common origin with the innominate artery. There is a focus of atherosclerosis most prominent at the origin of the left vertebral artery. The common carotid, external carotid, cervical segments of the internal carotid arteries, and the cervical segments of the vertebral arteries are patent without hemodynamically significant stenosis. The vertebral arteries are codominant. CTA Head: The anterior and posterior cerebral circulations are patent. No hemodynamically significant stenosis, aneurysm, dissection, or arteriovenous malformation is shown. Atherosclerotic disease is noted. IMPRESSION: 1. No acute intracranial hemorrhage, evidence of acute territorial infarction, or other acute intracranial disease process. 2. No occlusion, hemodynamically significant stenosis, aneurysm, dissection, or arteriovenous malformation in the major intracranial arteries. 3. No occlusion, hemodynamically significant stenosis, or dissection in the major cervical arteries. Assessment of stenosis of the internal carotid arteries is based on NASCET criteria. ACT 112: Negative or not required by law. Electronically signed by: Adalberto Valenzuela M.D. 06/16/2021 10:24 AM Brain MRI 06/16/21 13:29 MR brain wo con HISTORY: 89 years-old Male ? CVA acute strokelike symptoms COMPARISON: CT head, CTA head and neck of same day, brain MRI 09/30/2017 TECHNIQUE: Multiplanar multisequence MRI of the brain was obtained without the use of IV contrast. FINDINGS: Online Content Editor localizer images demonstrate no gross extracranial abnormality. The midline structures appear unremarkable. Discogenic degenerative changes of the cervical spine. No pathologic blooming artifact. Motion degraded exam. There is a subcentimeter focus rof increased diffusion-weighted signal within the left pontine brainstem on image 8 series 4 measuring up to 5 mm which demonstrate decreased signal on ADC map. No acute intracranial hemorrhage, midline shift, abnormal extra axial collection, hydrocephalus or intracranial mass. Age-related involutional changes . Extensive T2/FLAIR hyperintense foci are noted throughout the white matter. No pathologic blooming artifact. The cerebral venous sinuses and major arterial flow voids appear patent. Prior bilateral lens repair. Mastoid air cells and paranasal sinuses are generally clear. The skull and soft tissues are unremarkable. IMPRESSION: 1. 5 mm focus of restricted diffusion involving the left paramedian esperanza is suggestive of an acute or subacute infarct. 2. Age-related involutional changes with extensive chronic microvascular ischemic disease. ACT 112: Negative or not required by law. The above report was generated using voice recognition software. It may contain grammatical, syntax or spelling errors. Electronically signed by: Pola Black M.D. 06/16/2021 2:59 PM Hospital Course (1) Left pontine stroke: 89 y/o M w/ PMHx of HTN, HLD, DM2, and SIADH who presented w/ stroke- symptoms (dysarthria and generalized weakness) the evening prior to admission. Left pontine stroke, symptoms improving - not tpa candidate as outside window of treatment - MRI brain showing 5 mm focus of restricted diffusion involving the left paramedian esperanza - CTA neck w/o acute pathology - TTE pending - as stroke occurred while on baby ASA, will switch to Plavix - transitioning to high intensity statin - neurology consulted, recs appreciated (2) Dysarthria: - improving. follow clinically (3) Weakness: - see above (4) Acute stress reaction: - monitor clinically. Antidepressant not indicated at this time. (5) Hypertension: - continue home amlodipine. Consider switching to RAFFY inhibitor class because of PMHx of diabetes. (6) Type 2 diabetes mellitus: - continue home regimen. A1c 7.5, stable x years. Acceptable A1c. Patient takes metformin 500 BID and Lantus 21u qam, 14u qhs. (7) SIADH (syndrome of inappropriate ADH production): - Reviewed notes from 2019 which recommended 1.5L fluid restriction. (8) Hyperlipidemia: - TG 99. total cholesterol 128. LDL 71. HDL 37. - changed to atorva 40 as above (9) Vitamin D deficiency: - continue 2000IU daily home regimen Total Time Total Time Spent Total Time Spent (In Minutes): >30 Discharge Plan Discharge Items Patient Disposition: Home - Self-Care Reason For Visit: SLURRED SPEECH, GENERALIZED WEAKNESS Discharge Diagnosis: acute pontine stroke Activity: Per Instructions section Non-emergency contact: Primary Care Provider Call non-emergency contact if: you have any medication questions, your symptoms worsen and you have a fever Follow-up/Referrals: Len Jack MD [Primary Care Provider] - (hospital discharge follow up within 1 week) Diet: Carb Consistent or DM2 Addtl Attending Provider Instructions: stroke -your symptoms were due to a stroke in the esperanza (a part of the brain near the back-middle - think of it as a control and relay center for nerve signals) -while we are not able to undo the damage done with a stroke, fortunately our brains are made with a lot of "failsafes" -- and frequently after a stroke, while we can't regenerate the damaged tissue, we can start to build pathways norma und it. it really appears that this is what is already happening given the improvement in your speech from yesterday to today. -the main plan for recovery is really going to be forcing those neurons to work in creating speech - to that end we've set up a referral to do speech therapy as an outpatient. because in general people tend to recover more the more we push things, we've also set things up for physical and occupational therapy to continue to work with you in order to improve your overall recovery -in addition to the formal therapy, remember that anything you're doing to work on speech can be helpful - to that end i would recommend reading out loud (try to target maybe an hour a day) and talk enough that your decides she needs to leave the room!!! (ie the more you talk, the more things should have some recovery just from forcing it) -the stroke appears to have been caused by small vessel atherosclerosis (hardening of the arteries up in your brain) - this is likely something that happened slowly over decades - related to diabetes, cholesterol, and blood pressure (see below) -typically what we see happen with this kind of stroke is that the blockage is an inflamed fatty layer with a thin layer of skin on top - because it is inflamed the skin splits. when the skin splits then your blood reacts the same as it would if you cut your finger -- it forms a clot. the problem is that a clot mid-stream in the bloodflow to part of your brain ends up leading to the stroke. -to help prevent this, we'll be changing up what you do with a blood thinner (antiplatelet) medicine to try to protect you more from clots that can form in the blockages -- we'll have you stop your aspirin and instead start plavix (clopidogrel) 75mg daily (there are some studies that suggest it's a bit better of a preventative when someone has had a stroke despite being on an aspirin already). there is a chance that you could run into the same bruising or bleeding issues that led to you reducing the aspirin before - if that happens talk with Dr Jack. however, it's also quite possible that you won't run into as much trouble so i wouldn't expect it to be a problem until/unless it starts to be -to protect your blood vessels more - to prevent the plaque from splitting open to begin with - we'll also be changing your simvastatin to atorvastatin -- the reason for this is NOT that we want to lower your cholesterol numbers more - they're actually quite good. the reason for the change is that certain statins (most notably atorvastatin (lipitor) at 40 and 80mg and rosuvastatin (crestor) at 20 and 40mg) will not only lower your cholesterol but also stabilize the plaque that is in the artery and make it less likely to break open. sugars -your A1c is 7.5% (A1c is a marker of what your sugars have been doing the last 3 months - since red blood cells live for about 90 days, an A1c is essentially a marker of how sugar covered your red cells are) - the main reason that we worry about diabetes as it relates to strokes is that high sugars clog arteries. how that works out in terms of A1c numbers is that anything above 7.0 can put things into "high sugars clog arteries" territory - but for 7.5% - barely. really we'd be far more worried about getting sugars under better control if your A1c was 8- 9 or higher. at 89 years old, if we push too hard to get your sugars much tighter than they are right now, we actually will run more of a risk of creating problems with low sugars than we will protect from the damage of highs -to that end, we'd have you keep your sugar medicines the same hyperlipidemia (high cholesterol) -as discussed above, your cholesterol numbers themselves are really quite good - the only reason for the change from the simvastatin to the atorvastatin is to help reduce the chances of an atherosclerotic plaque breaking open and causing another stroke. -most people actually tolerate atorvastatin (lipitor) better than zocor (simvastatin) -- so since your simvastatin has been sitting well, it's really unlikely that the atorvastatin will cause any problems -of course if you were to get new muscle aches we would want you to let Dr Jack know about it (note: it wouldnt' be subtle or an amplification of aches and pains you already have -- statin related muscle aches are really more of a whole body ache - "like you have the flu but you don't have the flu" or less commonly, calf cramps that come out of nowhere but don't want to settle down -- both of these are unlikely though, and if they do occur then Dr Jack would have you stop the medicine and the aches would subside hypertension (high blood pressure) -right after a stroke is a bad time to bring blood pressure under perfect control. generally for a few days to a few weeks after a stroke, we actually want to let people run a litlte high - so that your body can get blood flow through the blockages. however, over the long run, since high blood pressure hardens arteries, we'd want your blood pressure under pretty good control (less than 140/90 or even less than 130/85 if it's not causing you to feel weak/lightheaded/dizzy) -ideally, we'd probably look to change your blood pressure medicine from the amlodipine that you normally take to something like lisinopril or losartan. af ter a stroke, certain classes of blood pressure medicines will do a bit of a better job protecting you from future strokes - and medicines in these classes tend to be the most favorable. -however, this change in blood pressure medications, and the goals for predatory animal exterminator control, are both things that are better to play out over several months. since we're already changing a few medications above, and there's not an urgent need to shuffle out the blood pressure medicines right now, we'll have you stay on the amlodipine that you're normally on, and then once you've gotten used to the other new medicines, we can look to have Dr Jack switch the amlodipine to lisinopril or losartan in the future lifestyle -while all of the above is definitely important at recovering from the stroke you had an preventing the next one, lifestyle factors are almost as important -eating habits: ideally we'd have you work towards a [facility] kind of diet (high in fruits and vegetables, lean sources of protein (like chicken or fish) and low in simple/starchy/sugary carbohydrates -exercise: in a perfect world, we'd have you do some sort of exercise for at least 30 minutes a day, every day. obviously "life gets in the way" - but do the best you can to increase from your (already good) foundation of exercising 3 days a week to trying to add in something every day if possible. as it relates to preventing future strokes // vascular disease in general, light cardiovascular exercise (walking, pedaling, etc) - tends to get the best results stress response/tearfulness -as we discussed, it's fairly common when you're used to being "young and healthy" (despite a birthday that's a few years old!) having a major event like this can throw you a curve. it's important to remember that this was a serious event, but also that this does not suddenly make you "old and sick." it's true that the cerebrovascular disease that caused the stroke does not go away, but we also know that when people do things right with medicines and lifestyle, they often do great. -it's pretty common to feel the way you've been feeling while you're processing what happened, and it's totally OK to work through all this. however, if you start to feel like you're truly slipping into a depression (as opposed to working through emotions that are more in line with grieving) please talk with Dr Jack as there are a lot of things we can do to help, if the help is needed. Pending Studies at Discharge: Yes (echocardiogram has not yet been read by cardiology) Studies:: echocardiogram has not yet been read by cardiology, but i highly doubt it will show findings of significance Stand-Alone Forms: My [facility] Snipd, Smoking Cessation Medications and DC Order Prescriptions: New atorvastatin 40 mg Tablet 40 mg PO QAM Qty: 30 RF: 0 clopidogrel [Plavix] 75 mg tablet 75 mg PO DAILY Qty: 30 RF: 0 Continued amlodipine 5 mg tablet 5 mg PO DAILY Qty: 90 RF: 3 Lantus Solostar U-100 Insulin 100 unit/mL (3 mL) insulin pen See Rx Instructions SQ DAILY Qty: 15 RF: 3 niacin 500 mg tablet extended release 500 mg PO HS Qty: 90 RF: 3 metformin 500 mg tablet 500 mg PO BID Qty: 180 RF: 3 latanoprost 0.005 % drops 1 drops OPR HS RF: 0 multivitamin [Multiple Vitamins] tablet 1 tab PO DAILY RF: 0 cholecalciferol (vitamin D3) 50 mcg (2,000 unit) tablet 2,000 units PO DAILY RF: 0 timolol maleate 0.5 % drops 1 drp OPR BID RF: 0 Discontinued simvastatin 20 mg tablet 20 mg PO DAILY Qty: 90 RF: 3 aspirin [Aspir-81] 81 mg tablet,delayed release (DR/EC) 81 mg PO [id number] RF: 0 Discharge Orders: Discharge Order (Routine); Ordered 06/17/21 Ordered By: Niles Beltran/Other Patient Handouts: Managing Type 2 Diabetes Admission Data Admit Date/Time: 06/16/21 13:14 Attending Provider: Niles Londono Admit Provider: Len Payton Primary Care Provider: Len Jack Other Providers: Len Payton ; Gregg Nole Other Interventions: Discharge Summary Assessment (RN) Last Done: 06/17/21 17:23 Supervising Physician Co-Signing Physician Notes I personally examined the patient and verified all infante points of history and exam, discussed case, and agree with decision making with Dr Quintanilla feeling better - speech still not great but better than before. present. updated both pt and extensively on stroke, small vessel disease, management, secondary risk reduction. was concerned w pt's stability on feet - had pt ambulate in halls w observing - she was then comfortable with taking him home vitals noted nad heent nc at mmm somewhat slurred but quite intelligable speech otherwise as above. breathing unlabored no accessory muscles good effort skin no rashes no pallor or icterus CVA - small vessel disease (echo pending but highly unlikely central embolic source) -speech/PT/OT as outpt -secondary risk reduction: change asa to plavix, change simva to atorva (should not drop LDL low enough to increase ICH risk based on predicted additional 10% drop in LDL on 40 atorva compared to current 20 simva - goal being to have plaque stabilization type benefit in addition to lipid reduction) ---continue amlodipine for now since making several other med changes, but consider change to ACEi or ARB in near future -stable for home see above/discharge instructions otherwise Resident Activity Tracking Resident Involvement: Resident Care Provided Care Provided: Adult Hospital Medicine
--- NOTE | 2021-06-17 18:08 | Billing Data ---
Date of Service June 17, 2021 Coding Level of Care Code D/C DAY MANAGEMENT >30 MINS
--- NOTE | 2021-06-18 08:56 | XCELERA ---
[id number]
[2021-06-18] MEDS ORDERED: ASPIRIN 81 MG ECTAB PO SCH (09:00)
== END 2021-06-17 18:11 | disposition home or self-care (01) | DRG 65 ==
LOC: ED 09:09 → EDINP 13:14 → SUATTDRO 13:14 → 2N 17:22

== ENCOUNTER 2021-06-18 06:00 | Inpatient (IN) ==
--- NOTE | 2021-06-18 06:42 | XRay Report ---
XR chest 1V portable HISTORY: 89 years-old Male Stroke Like Symptoms acute strokelike symptoms COMPARISON: Chest radiograph 06/16/2021 TECHNIQUE: Portable AP view of the chest FINDINGS: Cardiac mediastinal and hilar silhouettes are within normal limits. Decreased hilar prominence which was likely projectional on the prior study. Mild blunting of the costophrenic angles is unchanged. No pneumothorax, large pleural effusion or overt pulmonary edema. Mild linear bibasilar opacities have improved. Cholecystectomy. Degenerative changes of the shoulders and spine. IMPRESSION: There is improved bibasilar atelectasis. ACT 112: Negative or not required by law. The above report was generated using voice recognition software. It may contain grammatical, syntax o r spelling errors. Electronically signed by: Pola Black M.D. 06/18/2021 6:40 AM
[2021-06-18 06:44] LABS: Basophils # (auto) 0.04 K/uL (0-0.2); Basophils % (auto) 0.5 %; Eosinophils # (auto) 0.25 K/uL (0-0.5); Eosinophils % (auto) 3.4 %; Hematocrit (blood only) 44.7 % (42-52); Hemoglobin 14.9 g/dL (14.0-18.0); Immature Granulocytes # (auto) 0.02 K/uL (0.00-0.02); Immature Granulocytes % (auto) 0.3 %; Lymphocytes # (auto) 2.11 K/uL (1.2-3.4); Lymphocytes % (auto) 28.5 %; Mean Corpuscular Hemoglobin 30.2 pg (25-34); Mean Corpuscular Hgb Conc 33.3 g/dL (32-36); Mean Corpuscular Volume 90.5 fL (80-100); Mean Platelet Volume 10.4 fL (7.4-10.4); Monocytes % (auto) 9.4 %; Neutrophils # (auto) 4.29 K/uL (1.4-6.5); Neutrophils % (auto) 57.9 %; Platelet Count 239 K/uL (130-400); RDW Coefficient of Variation 13.7 % (11.5-14.5); RDW Standard Deviation 45.2 fL (36.4-46.3); Red Blood Count 4.94 M/uL (4.7-6.1); White Blood Count 7.41 K/uL (4.8-10.8)
--- NOTE | 2021-06-18 06:46 | Emergency Department Note ---
Impression & Plan Acute ischemic stroke ED Provider Note NAME: DEMI STANLEY AGE: 89 SEX: M : 1930 ARRIVES VIA: Walk-In INFORMANT: Patient, patient's significant other ED PROVIDER(S): Barry Bailey DO CHIEF COMPLAINT: Strokelike symptoms HPI: The patient is an 89-year-old male who presented to the emergency department with his significant other for stroke evaluation. The patient was admitted to our facility recently. He presented with strokelike symptoms including slurred speech. The patient appeared to be off from his baseline. He was admitted and had a formal stroke work-up. He was found to have a stroke on MRI. He was discharged to our facility yesterday. He appeared to be doing well according to his significant other who presented with him. She states that he awoke this morning and was able to go to the bathroom approximately 3 AM. When he awoke prior to coming to the emergency department he did not feel well and asked to come to the hospital. The patient has been compliant with his outpatient medications. He denies having any recent trauma. The patient was started on some new medications including Plavix. He has been able to ambulate but he states its been difficult. ROS: See above HPI for pertinent positives & negatives. A total of 10 systems reviewed and were otherwise negative. PAST MEDICAL HISTORY: See Below PAST SURGICAL HISTORY: See Below FAMILY HISTORY: See Below SOCIAL HISTORY: See Below HOME MEDICATIONS: See Below ALLERGIES: See Below VITALS: See Below PHYSICAL EXAMINATION: GENERAL: The patient is awake and looking around the room. He appears somewhat anxious. EYES: The conjunctivae are injected bilaterally. The pupils are round and reactive. EARS, NOSE, MOUTH AND THROAT: The nose is without any evidence of any deformity. NECK: The neck is nontender and supple. RESPIRATORY: Normal respiratory effort is noted there is no evidence of wheezing rhonchi or rales CARDIOVASCULAR: Regular rate and rhythm noted there no murmurs rubs or gallops normal S1 normal S2. GASTROINTESTINAL: The abdomen is soft. Abdomen is nontender. MUSCULOSKELETAL/EXTREMITIES: There is no evidence of gross deformity full range of motion is noted in the hips and shoulders. SKIN: Skin is warm and dry. Trace pedal edema was noted bilaterally. NEUROLOGIC: Patient is awake alert and oriented x3. Strength is symmetric but diminished bilaterally. 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 Patient is able to hold each leg off the bed for greater than 5 seconds. The patient has a slight facial droop on the left only involving the corner of the mouth. MEDICAL DECISION MAKING: The patient is a an 89-year-old male who presented to the emergency department for an evaluation of generalized weakness. The patient recently had a stroke. He states that he was feeling worse. He was noted by his significant other to have some speech difficulty. He was discharged only recently after being admitted and diagnosed with an ischemic stroke. The patient initially was able to speak without difficulty but while he was in the emergency department his speech seemed to become slightly more dysarthric. He also had a left facial droop which I felt started to worsen while he was in the emergency department. He was not a candidate for thrombolytics as the patient only recently had an ischemic stroke. He had no signs of large vessel occlusion on angiography. I discussed the patient's laboratory and radiographic studies with him. Because of his findings I also [facility] have agreed to evaluate the patient in the emergency department for further management and disposition. Triage Nursing notes reviewed. Prior medical records reviewed Vital Signs: reviewed and remarkable for no significant abnormalities Differential diagnosis: Infection, dehydration, metabolic abnormality, hypo/hyperglycemia, electrolyte disturbance, anemia, hypoxia, cardiac sources, intracerebral event, toxicologic, neurologic, as well as other pathologies. ER treatment provided: See below Diagnostics interpreted by me: ECG: EKG was obtained in the emergency department. My interpretation is sinus rhythm at 77 bpm. There is no ectopy. LVH was suggested by voltage criteria. Nonspecific ST segment abnormalities were noted. This was compared to a tracing from June 162021. No significant changes were noted. Cardiac Monitoring: An order was placed for continuous cardiac monitoring. The monitor shows a rate of 84 bpm with sinus rhythm. Laboratory studies: As stated above and show below. Imaging studies: See below Consultation(s): I discussed this case with Nick who was [facility]. 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 Type 2 diabetes mellitus Vitamin D deficiency Surgical History History of laparoscopic cholecystectomy S/P cataract extraction Bilateral S/P TURP Family History Mother , age 95 No acute medical problems Father , age 82 of prostate cancer Prostate cancer Asthma Diabetes Denies family history of Ovarian cancer Breast cancer Lung cancer Social History Smoking Status: Former smoker Tobacco Type: Cigarettes Age Started Using Tobacco: 21; Age Quit Using Tobacco: 36; packs per day: 1; Years Smoked: 15; Second Hand Exposure: No; Hx Alcohol Use: Yes Alcohol type: beer Alcohol Intake Frequency: Monthly or Less Hx Substance Use: No Preferred Language: Cuban Communication Ability: Effective Visual Impairment: Limited Hearing Ability: Use of Hearing Aid Computing 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 Required: No Beliefs That Will Affect Care: None marital status: Current Living Situation: Spouse Current Living Situation Comment: current occupational status: retired 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, 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 [employer] Feels Safe at Home: Yes Childhood Exposure to Second-Hand Smoke: No caffeine: No Dental Care, Regularly: Yes Physical Activity Frequency: 3-4 Times per Week Physical Activity Frequency Comment: [employer] Seatbelt Use: always Sunscreen Use: No Do you think of yourself as: straight/heterosexual Assistive Devices: Glasses Allergies Allergies Allergy/AdvReac Type Severity Reaction Status Date / Time naproxen Allergy Intermediate LIPS & Verified 06/18/21 08:19 CHEEKS SWELL Sulfa (Sulfonamide Allergy Mild mild Verified 06/18/21 08:19 Antibiotics) family history Home Meds Home Medications Medication Instructions Recorded Confirmed latanoprost 0.005 % eye drops 1 drops OPR HS ml 11/21/18 06/18/21 multivitamin (Multiple Vitamins) 1 tab PO QAM 11/21/18 06/18/21 cholecalciferol (vitamin D3) 50 2,000 units PO QAM tab 06/13/19 06/18/21 mcg (2,000 unit) tablet amlodipine 5 mg tablet 5 mg PO HS 06/18/21 06/18/21 clopidogrel 75 mg tablet (Plavix) 75 mg PO QAM 06/18/21 06/18/21 Previous Rx's Medication Instructions Recorded insulin glargine 100 unit/mL (3 See Rx Instructions SQ DAILY #15 ml 04/13/21 mL) subcutaneous pen (Lantus Solostar U-100 Insulin) niacin 500 mg tablet,extended 500 mg PO HS #90 tab 04/13/21 release metformin 500 mg tablet 500 mg PO BID #180 tab 05/11/21 atorvastatin 40 mg tablet 40 mg PO QAM #30 tab 06/17/21 Results & Data (ED) Vital Signs Vital Signs - 24 hr 06/18/21 06:02 06/18/21 06:11 06/18/21 06:18 Temperature 36.8 C Temperature Source Temporal Artery Scan Pulse Rate 77 83 Pulse Rate from SpO2 Sensor 80 Respiratory Rate 18 18 Respiratory Effort / Characteristics Non-Labored Spontaneous Respiratory Depth Normal Blood Pressure 183/83 H Blood Pressure Mean 116 Pulse Oximetry 96 96 Oxygen Delivery Method Room Air Room Air Sepsis Recent Fever Within 48 Hours No Sepsis New/Unexplained Change in Mental Status No Sepsis Action Taken by Nursing No Action Required 06/18/21 06:30 06/18/21 07:00 06/18/21 07:30 Temperature Temperature Source Pulse Rate 77 74 75 Pulse Rate from SpO2 Sensor Respiratory Rate 19 16 19 Respiratory Effort / Characteristics Respiratory Depth Blood Pressure Blood Pressure Mean Pulse Oximetry Oxygen Delivery Method Sepsis Recent Fever Within 48 Hours Sepsis New/Unexplained Change in Mental Status Sepsis Action Taken by Nursing 06/18/21 08:00 06/18/21 08:30 06/18/21 09:00 Temperature Temperature Source Pulse Rate 70 96 H 69 Pulse Rate from SpO2 Sensor 69 Respiratory Rate 14 15 15 Respiratory Effort / Characteristics Respiratory Depth Blood Pressure Blood Pressure Mean Pulse Oximetry 90 Oxygen Delivery Method Sepsis Recent Fever Within 48 Hours Sepsis New/Unexplained Change in Mental Status Sepsis Action Taken by Nursing 06/18/21 09:10 06/18/21 10:00 Temperature Temperature Source Pulse Rate 68 Pulse Rate from SpO2 Sensor 68 Respiratory Rate 19 Respiratory Effort / Characteristics Respiratory Depth Blood Pressure 153/94 H 151/74 H Blood Pressure Mean 113 99 Pulse Oximetry 94 Oxygen Delivery Method Sepsis Recent Fever Within 48 Hours Sepsis New/Unexplained Change in Mental Status Sepsis Action Taken by Snf Medications Current Medication List: was personally reviewed by me Laboratory Data Attestation: I reviewed the patient's lab results. Result diagrams: 06/18/21 06:30 06/18/21 06:30 Lab Results 06/18/21 06/18/21 06/18/21 Range/Units 06:30 06:30 06:30 WBC 7.41 (4.8-10.8) K/uL RBC 4.94 (4.7-6.1) M/uL Hgb 14.9 (14.0-18.0) g/dL Hct 44.7 (42-52) % MCV 90.5 (80-100) fL MCH 30.2 (25-34) pg MCHC 33.3 (32-36) g/dL RDW Std Deviation 45.2 (36.4-46.3) fL RDW Coeff of Natasha 13.7 (11.5-14.5) % Plt Count 239 (130-400) K/uL MPV 10.4 (7.4-10.4) fL Immature Gran % (Auto) 0.3 % Neut % (Auto) 57.9 % Lymph % (Auto) 28.5 % [place] % (Auto) 9.4 % Eos % (Auto) 3.4 % Baso % (Auto) 0.5 % Neut # (Auto) 4.29 (1.4-6.5) K/uL Lymph # (Auto) 2.11 (1.2-3.4) K/uL [place] # (Auto) 0.70 H (0.11-0.59) K/uL Eos # (Auto) 0.25 (0-0.5) K/uL Baso # (Auto) 0.04 (0-0.2) K/uL Immature Gran # (Auto) 0.02 (0.00-0.02) K/uL PT 10.9 (9.0-12.0) Seconds INR 1.1 (0.9-1.1) APTT 36.5 H (21.0-31.0) Seconds PTT Ratio 1.4 Sodium 134 L (136-145) mmol/L Potassium 4.2 (3.5-5.1) mmol/L Chloride 103 (98-107) mmol/L Carbon Dioxide 21 (21-32) mmol/L Anion Gap 10 (3-11) BUN 22 (6-23) mg/dl Creatinine 0.95 (0.6-1.4) mg/dl Est Cr Clr Drug Dosing 47.5 ml/min Est GFR ( Amer) 81.9 ml/min Est GFR (Non-Af Amer) 70.7 ml/min BUN/Creatinine Ratio 23.2 H (10-20) Glucose 199 H (70-99(Fasting)) mg/dl POC Glucose (70-99) mg/dl Calcium 9.0 (8.5-10.1) mg/dl Magnesium 1.9 (1.7-2.4) mg/dl Total Bilirubin 0.6 (0.2-1.0) mg/dl AST 23 (13-39) U/L ALT 10 (7-52) U/L Alkaline Phosphatase 43 (34-104) U/L Troponin I < 0.03 (0-0.04) ng/ml Total Protein 6.5 (6.0-8.3) gm/dl Albumin 3.9 (3.4-5.0) gm/dl Globulin 2.6 (2.5-4.0) gm/dl Albumin/Globulin Ratio 1.5 (0.9-2) SARS-CoV-2, RNA, NAAT (NEGATIVE) 06/18/21 06/18/21 Range/Units 06:30 10:25 WBC (4.8-10.8) K/uL RBC (4.7-6.1) M/uL Hgb (14.0-18.0) g/dL Hct (42-52) % MCV (80-100) fL MCH (25-34) pg MCHC (32-36) g/dL RDW Std Deviation (36.4-46.3) fL RDW Coeff of Natasha (11.5-14.5) % Plt Count (130-400) K/uL MPV (7.4-10.4) fL Immature Gran % (Auto) % Neut % (Auto) % Lymph % (Auto) % [place] % (Auto) % Eos % (Auto) % Baso % (Auto) % Neut # (Auto) (1.4-6.5) K/uL Lymph # (Auto) (1.2-3.4) K/uL [place] # (Auto) (0.11-0.59) K/uL Eos # (Auto) (0-0.5) K/uL Baso # (Auto) (0-0.2) K/uL Immature Gran # (Auto) (0.00-0.02) K/uL PT (9.0-12.0) Seconds INR (0.9-1.1) APTT (21.0-31.0) Seconds PTT Ratio Sodium (136-145) mmol/L Potassium (3.5-5.1) mmol/L Chloride (98-107) mmol/L Carbon Dioxide (21-32) mmol/L Anion Gap (3-11) BUN (6-23) mg/dl Creatinine (0.6-1.4) mg/dl Est Cr Clr Drug Dosing ml/min Est GFR ( Amer) ml/min Est GFR (Non-Af Amer) ml/min BUN/Creatinine Ratio (10-20) Glucose (70-99(Fasting)) mg/dl POC Glucose 178 H (70-99) mg/dl Calcium (8.5-10.1) mg/dl Magnesium (1.7-2.4) mg/dl Total Bilirubin (0.2-1.0) mg/dl AST (13-39) U/L ALT (7-52) U/L Alkaline Phosphatase (34-104) U/L Troponin I (0-0.04) ng/ml Total Protein (6.0-8.3) gm/dl Albumin (3.4-5.0) gm/dl Globulin (2.5-4.0) gm/dl Albumin/Globulin Ratio (0.9-2) SARS-CoV-2, RNA, NAAT NEGATIVE (NEGATIVE) Administered Medications Aspirin (Aspirin 81 Mg Ectab) 81 mg PO Q2D [facility] Stop: 07/18/21 14:44 Last Admin: 06/18/21 16:48 Dose: 81 mg Documented by: [id number] Atorvastatin Calcium (Atorvastatin 40 Mg Tab) [facility] [place] [facility]: 07/18/21 11:59 Last Admin: 06/18/21 13:58 Dose: 40 mg Documented by: [id number] Clopidogrel Bisulfate (Clopidogrel Bisulfate 75 Mg Tab) [facility] [place] Stop: 07/18/21 11:59 Last Admin: 06/18/21 13:56 Dose: 75 mg Documented by: [id number] Potassium Chloride/Sodium Chloride (Normal Saline W/20 Meq Kcl) 20 meq in 1,000 mls @ 75 mls/hr IV .[id number] [facility] Stop: 06/19/21 14:39 Last Admin: 06/18/21 13:56 Dose: 75 mls/hr Documented by: [id number] Insulin Aspart (Insulin Aspart 100 Units/Ml Vial) 0 units SC ACHS [facility] Stop: 07/18/21 12:59 Last Admin: 06/18/21 16:22 Dose: Not Given Documented by: [id number] Cosigned by: [id number] Vitamin D (Cholecalciferol 1,000 Units 25 Mcg Tab) 2,000 units PO QAM [facility] Stop: 07/18/21 11:59 Last Admin: 06/18/21 13:57 Dose: 2,000 units Documented by: [id number] Discontinued Medications Insulin Glargine (Insulin Glargine Solostar 100 Units/Ml 3 Ml Pen) 20 units SQ ONE ONE Stop: 06/18/21 12:31 Last Admin: 06/18/21 14:27 Dose: 20 units Documented by: [id number] Cosigned by: [id number] Ioversol (Optiray 320 125ml) 120 ml IV ONCE ONE Stop: 06/18/21 08:25 Last Admin: 06/18/21 08:24 Dose: 120 ml Documented by: [id number] Imaging Data Radiologist's Impression: Chest X-Ray 06/18/21 06:23 XR chest 1V portable HISTORY: 89 years-old Male Stroke Like Symptoms acute strokelike symptoms COMPARISON: Chest radiograph 06/16/2021 TECHNIQUE: Portable AP view of the chest FINDINGS: Cardiac mediastinal and hilar silhouettes are within normal limits. Decreased hilar prominence which was likely projectional on the prior study. Mild blunting of the costophrenic angles is unchanged. No pneumothorax, large pleural effusion or overt pulmonary edema. Mild linear bibasilar opacities have improved. Cholecystectomy. Degenerative changes of the shoulders and spine. IMPRESSION: There is improved bibasilar atelectasis. ACT 112: Negative or not required by law. The above report was generated using voice recognition software. It may contain grammatical, syntax or spelling errors. Electronically signed by: Pola Black M.D. 06/18/2021 6:[address] 06/18/21 06:23 CT angio neck with con, CT head/brain wo con, CT angio head w con CLINICAL HISTORY: Stroke Like Symptoms difficulty walking. TECHNIQUE: Contiguous axial CT images of the head were acquired from the base of the skull to the vertex without intravenous contrast administration. CT angiography of the head and neck was performed following intravenous administration of iodinated contrast. Coronal and sagittal MIPS were obtained from the axial data set and were submitted for review. Automated dose lowering techniques and/or adjustment according to patient size were utilized for this examination. All measurements were calculated based on NASCET criteria. Comparison: None available at the time of this dictation. FINDINGS: CT head: There is no acute intracranial hemorrhage or evidence of acute territorial infarction. No shift of the midline structures, mass effect, or extra-axial abnormalities are shown. There is a left thyroid nodule measuring 15 mm. CTA Neck: The left common carotid artery shares common origin with the innominate artery. Atherosclerotic plaque is present in the aortic arch. There is no plaque at the origins of the innominate, left and right common carotid, or left subclavian arteries. The common carotid, external carotid, cervical segments of the internal carotid arteries, and the cervical segments of the ve rtebral arteries are patent without hemodynamically significant stenosis. The vertebral arteries are codominant. CTA Head: The anterior and posterior cerebral circulations are patent. No hemodynamically significant stenosis, aneurysm, dissection, or arteriovenous malformation is shown. Atherosclerotic disease is noted. IMPRESSION: 1. No acute intracranial hemorrhage, evidence of acute territorial infarction, or other acute intracranial disease process. 2. No occlusion, hemodynamically significant stenosis, aneurysm, dissection, or arteriovenous malformation in the major intracranial arteries. 3. No occlusion, hemodynamically significant stenosis, or dissection in the major cervical arteries. Assessment of stenosis of the internal carotid arteries is based on NASCET criteria. ACT 112: Negative or not required by law. Electronically signed by: Adalberto Valenzuela M.D. 06/18/2021 8:37 AM Head CTA 06/18/21 06:23 CT angio neck with con, CT head/brain wo con, CT angio head w con CLINICAL HISTORY: Stroke Like Symptoms difficulty walking. TECHNIQUE: Contiguous axial CT images of the head were acquired from the base of the skull to the vertex without intravenous contrast administration. CT angiography of the head and neck was performed following intravenous administration of iodinated contrast. Coronal and sagittal MIPS were obtained from the axial data set and were submitted for review. Automated dose lowering techniques and/or adjustment according to patient size were utilized for this examination. All measurements were calculated based on NASCET criteria. Comparison: None available at the time of this dictation. FINDINGS: CT head: There is no acute intracranial hemorrhage or evidence of acute territorial infarction. No shift of the midline structures, mass effect, or extra-axial abnormalities are shown. There is a left thyroid nodule measuring 15 mm. CTA Neck: The left common carotid artery shares common origin with the innominate artery. Atherosclerotic plaque is present in the aortic arch. There is no plaque at the origins of the innominate, left and right common carotid, or left subclavian arteries. The common carotid, external carotid, cervical segments of the internal carotid arteries, and the cervical segments of the vertebral arteries are patent without hemodynamically significant stenosis. The vertebral arteries are codominant. CTA Head: The anterior and posterior cerebral circulations are patent. No hemodynamically significant stenosis, aneurysm, dissection, or arteriovenous malformation is shown. Atherosclerotic disease is noted. IMPRESSION: 1. No acute intracranial hemorrhage, evidence of acute territorial infarction, or other acute intracranial disease process. 2. No occlusion, hemodynamically significant stenosis, aneurysm, dissection, or arteriovenous malformation in the major intracranial arteries. 3. No occlusion, hemodynamically significant stenosis, or dissection in the major cervical arteries. Assessment of stenosis of the internal carotid arteries is based on NASCET criteria. ACT 112: Negative or not required by law. Electronically signed by: Adalberto Valenzuela M.D. 06/18/2021 8:37 AM Neck CTA 06/18/21 06:23 CT angio neck with con, CT head/brain wo con, CT angio head w con CLINICAL HISTORY: Stroke Like Symptoms difficulty walking. TECHNIQUE: Contiguous axial CT images of the head were acquired from the base of the skull to the vertex without intravenous contrast administration. CT angiography of the head and neck was performed following intravenous administration of iodinated contrast. Coronal and sagittal MIPS were obtained from the axial data set and were submitted for review. Automated dose lowering techniques and/or adjustment according to patient size were utilized for this examination. All measurements were calculated based on NASCET criteria. Comparison: None available at the time of this dictation. FINDINGS: CT head: There is no acute intracranial hemorrhage or evidence of acute territorial infarction. No shift of the midline structures, mass effect, or extra-axial abnormalities are shown. There is a left thyroid nodule measuring 15 mm. CTA Neck: The left common carotid artery shares common origin with the innominate artery. Atherosclerotic plaque is present in the aortic arch. There is no plaque at the origins of the innominate, left and right common carotid, or left subclavian arteries. The common carotid, external carotid, cervical segments of the internal carotid arteries, and the cervical segments of the ve rtebral arteries are patent without hemodynamically significant stenosis. The vertebral arteries are codominant. CTA Head: The anterior and posterior cerebral circulations are patent. No hemodynamically significant stenosis, aneurysm, dissection, or arteriovenous malformation is shown. Atherosclerotic disease is noted. IMPRESSION: 1. No acute intracranial hemorrhage, evidence of acute territorial infarction, or other acute intracranial disease process. 2. No occlusion, hemodynamically significant stenosis, aneurysm, dissection, or arteriovenous malformation in the major intracranial arteries. 3. No occlusion, hemodynamically significant stenosis, or dissection in the major cervical arteries. Assessment of stenosis of the internal carotid arteries is based on NASCET criteria. ACT 112: Negative or not required by law. Electronically signed by: Adalberto Valenzuela M.D. 06/18/2021 8:37 AM Discharge Plan Visit Data Chief Complaint: Weakness Stated Complaint: WEAKNESS ED Provider: Barry Bailey Discharge Problem: Acute ischemic stroke Patient Disposition: Admitted As Inpatient Discharge Instructions Interventions: ED Discharge Assessment Last Done: 06/18/21 13:11
[2021-06-18 07:05] LABS: INR 1.1 (0.9-1.1); Partial Thromboplastin Ratio 1.4; Partial Thromboplastin Time 36.5 Seconds (21.0-31.0); Prothrombin Time 10.9 Seconds (9.0-12.0)
[2021-06-18 07:07] LABS: Troponin I < 0.03 ng/ml (0-0.04)
[2021-06-18 07:15] LABS: Alanine Aminotransferase 10 U/L (7-52); Albumin Globulin Ratio 1.5 (0.9-2); Albumin Level 3.9 gm/dl (3.4-5.0); Alkaline Phosphatase 43 U/L (34-104); Anion Gap 10 (3-11); Aspartate Aminotransferase 23 U/L (13-39); BUN Creatinine Ratio 23.2 (10-20); Bilirubin,Total 0.6 mg/dl (0.2-1.0); Blood Urea Nitrogen 22 mg/dl (6-23); Carbon Dioxide 21 mmol/L (21-32); Chloride 103 mmol/L (98-107); Creatinine Clr Calc Pharmacy 47.5 ml/min; Est GFR (African American) 81.9 ml/min; Est GFR (Non-African American) 70.7 ml/min; Globulin 2.6 gm/dl (2.5-4.0); Glucose 199 mg/dl (70-99(Fasting)); Magnesium 1.9 mg/dl (1.7-2.4); Potassium 4.2 mmol/L (3.5-5.1); Sodium 134 mmol/L (136-145); Total Protein 6.5 gm/dl (6.0-8.3)
[2021-06-18] MEDS ORDERED: OPTIRAY 320 125ml IV ONE (08:24)
--- NOTE | 2021-06-18 08:39 | CT Scan Report ---
CT angio neck with con, CT head/brain wo con, CT angio head w con CLINICAL HISTORY: Stroke Like Symptoms difficulty walking. TECHNIQUE: Contiguous axial CT images of the head were acquired from the base of the skull to the martita rasta without intravenous contrast administration. CT angiography of the head and neck was performed f ollowing intravenous administration of iodinated contrast. Coronal and sagittal MIPS were obtained fr om the axial data set and were submitted for review. Automated dose lowering techniques and/or adjus tment according to patient size were utilized for this examination. All measurements were calculated based on NASCET criteria. Comparison: None available at the time of this dictation. FINDINGS: CT head: There is no acute intracranial hemorrhage or evidence of acute territorial infarction. No sh ift of the midline structures, mass effect, or extra-axial abnormalities are shown. There is a left thyroid nodule measuring 15 mm. CTA Neck: The left common carotid artery shares common origin with the innominate artery. Atheroscle rotic plaque is present in the aortic arch. There is no plaque at the origins of the innominate, lef t and right common carotid, or left subclavian arteries. The common carotid, external carotid, cervi sukhdev segments of the internal carotid arteries, and the cervical segments of the vertebral arteries ar e patent without hemodynamically significant stenosis. The vertebral arteries are codominant. CTA Head: The anterior and posterior cerebral circulations are patent. No hemodynamically significan t stenosis, aneurysm, dissection, or arteriovenous malformation is shown. Atherosclerotic disease is noted. IMPRESSION: 1. No acute intracranial hemorrhage, evidence of acute territorial infarction, or other acute intrac ranial disease process. 2. No occlusion, hemodynamically significant stenosis, aneurysm, dissection, or arteriovenous malfor mation in the major intracranial arteries. 3. No occlusion, hemodynamically significant stenosis, or dissection in the major cervical arteries. Assessment of stenosis of the internal carotid arteries is based on NASCET criteria. ACT 112: Negative or not required by law. Electronically signed by: Adalberto Valenzuela M.D. 06/18/2021 8:37 AM
--- NOTE | 2021-06-18 11:15 | History & Physical Report ---
Date of Service June 18, 2021 Assessment & Plan (1) Extension of stroke: (2) Left pontine stroke: Plan: Mr. 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 He complains of worsening weakness, difficulty walking, balance issues, worsening facial droop, and slurred speech which he noticed this morning. He woke up at 0300 today to use the restroom and had difficulty with balance and his legs felt very weak but he was able to use the bathroom and returned to bed on his own. When he woke up again at approximately 0500 and he noticed his weakness had increased and he felt very unsteady on his feet. Additionally when he spoke to his significant other -- his speech seemed more slurred and garbled and his left facial droop appeared to be more pronounced. Patient is emotionally labile in the ER, gets very tearful and cries at times throughout the interview. He states he is able to swallow but last evening at dinner he had an episode of coughing/gagging but denies choking on his food or having aspirated. CTA Brain/Neck 06/18/21 show no acute intracranial hemorrhage, evidence of acute territorial infarction, or other acute intracranial disease process. No occlusion, hemodynamically significant stenosis, aneurysm, dissection, or arteriovenous malformation in the major intracranial arteries. No occlusion, hemodynamically significant stenosis, or dissection in the major cervical arteries. Recommend the following: -- Admit to PCU on telemetry. -- Continue Plavix 75 mg daily. -- Continue Atorvastatin 40 mg daily. -- Restart Aspirin 81 mg 4 times a week. -- MRI Brain stat. -- Consider Neurology Consult if significant extension of CVA. -- PT/OT Consultations. -- Speech Therapy Consult. -- Will likely need Rehab stay following this hospitalization, (3) Hypertension: Plan: -- BP elevated today, SBP 150's. BP likely elevated in the setting of acute stress as patient is very anxious about his symptoms. -- Allow permissive hypertension with goal SBP <200 and DBP <110. -- Continue current antihypertensive regimen. (4) Hyperlipidemia: Plan: -- Continue Atorvastatin 40 mg daily. (5) Type 2 diabetes mellitus: Plan: -- Hold Metformin. -- Continue usual home long acting insulin. -- Cover with sliding scale insulin. -- Glycemic Pharmacy Consult. -- If he passes his swallowing screen, begin diabetic diet. History of Present Illness Chief Complaint: -- Weakness. -- Worsening facial droop, dysarthria. 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 Primary Care Provider: Len Jack MD Mr. 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 He woke up at 0300 today to use the restroom and had difficulty with balance and his legs felt very weak but he was able to use the bathroom and returned to bed on his own. When he woke up again at approximately 0500 and his weakness had increased and he felt very unsteady on his feet. Additionally when he spoke to his significant other -- his speech seemed more slurred and garbled and his left facial droop appeared to be more pronounced. Patient is emotionally labile in the ER, gets very tearful and cries at times throughout the interview. He states he is able to swallow but last evening at dinner he had an episode of coughing/gagging but denies choking on his food or having aspirated. He denies any visual disturbance, blind spots, black spots, or loss of visual griffin. He denies any fecal incontinence but does admit to some urine leakage. He denies any upper extremity weakness. Evaluation in the ER shows a normal CBC with diff, mild hyponatremia at 134 mmol/L, normal potassium level, serum creatinine 0.95 mg/dL, BUN 22 mg/dl, and normal LFT's. His troponin I is undetectable at < 0.03 ng/mL. Patient is hyperglycemic with a blood sugar of 199 mg/dL. His EKG shows a normal sinus rhythm with nonspecific T-wave abnormality -- when compared to tracing from 06/16/2021 nonspecific T-wave abnormality is more pronounced in the inferior leads. satellite project site monitor shows a normal sinus rhythm with PVCs. It is unclear if patient has started on Plavix yet as an outpatient although was ordered for him yesterday when he was discharged from the hospital. He has been compliant with his medications. Allergies Allergy/AdvReac Type Severity Reaction Status Date / Time naproxen Allergy Intermediate LIPS & Verified 06/18/21 08:19 CHEEKS SWELL Sulfa (Sulfonamide Allergy Mild mild Verified 06/18/21 08:19 Antibiotics) family history Home Medications Medication Instructions Recorded Confirmed Type latanoprost 0.005 % eye drops 1 drops OPR HS ml 11/21/18 06/18/21 History multivitamin (Multiple Vitamins) 1 tab PO QAM 11/21/18 06/18/21 History cholecalciferol (vitamin D3) 50 2,000 units PO QAM tab 06/13/19 06/18/21 History mcg (2,000 unit) tablet insulin glargine 100 unit/mL (3 See Rx Instructions SQ DAILY #15 ml 04/13/21 06/18/21 Rx mL) subcutaneous pen (Lantus Solostar U-100 Insulin) niacin 500 mg tablet,extended 500 mg PO HS #90 tab 04/13/21 06/18/21 Rx release metformin 500 mg tablet 500 mg PO BID #180 tab 05/11/21 06/18/21 Rx atorvastatin 40 mg tablet 40 mg PO QAM #30 tab 06/17/21 06/18/21 Rx amlodipine 5 mg tablet 5 mg PO HS 06/18/21 06/18/21 History clopidogrel 75 mg tablet (Plavix) 75 mg PO QAM 06/18/21 06/18/21 History 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 Type 2 diabetes mellitus Vitamin D deficiency Surgical History History of laparoscopic cholecystectomy S/P cataract extraction Bilateral S/P TURP Family History Mother , age 95 No acute medical problems Father , age 82 of prostate cancer Prostate cancer Asthma Diabetes Denies family history of Ovarian cancer Breast cancer Lung cancer Social History Smoking Status: Former smoker Tobacco Type: Cigarettes Age Started Using Tobacco: 21; Age Quit Using Tobacco: 36; packs per day: 1; Years Smoked: 15; Second Hand Exposure: No; Hx Alcohol Use: Yes Alcohol type: beer Alcohol Intake Frequency: Monthly or Less Hx Substance Use: No Preferred Language: Frisian Communication Ability: Effective Visual Impairment: Limited Hearing Ability: Use of Hearing Aid Fire Patroller Required: No Beliefs That Will Affect Care: None marital status: Current Living Situation: Spouse Current Living Situation Comment: current occupational status: retired 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 Physical Exam Physical Exam: GENERAL: Patient is in no acute distress. HEENT: Head is atraumatic, normocephalic. Left eyelid droops, EOM's intact. No perioral cyanosis. Mucous membranes are moist. NECK: No JVD. JVP is not elevated. Carotid upstrokes are + 2 bilaterally without obvious bruits. CHEST/LUNGS: Clear to auscultation throughout all lung griffin. No wheezes, rales, or crackles. CVS: S1 and S2 are regular with occasional ectopy. There is a grade 1/6 apical holosystolic murmur, also audible to left sternal border. No diastolic murmurs appreciated. No gallops or rubs. PMI is nondisplaced. No lifts, heaves, or thrills. No abdominal aortic or renal bruits. ABDOMINAL EXAM: Bowel sounds are present. No masses, organomegaly, or tenderness. EXTREMITIES: No clubbing or cyanosis. No edema. Intact radial pulses bilaterally. NEUROLOGIC EXAM: Patient is awake, alert, and interactive. He is tearful at times throughout the interview. Answers questions appropriately. Speech is slurred. Left eyelid (cranial nerve 3 palsy) and left facial droop noted. Manual muscle testing shows symmetric strength in the major muscle groups of the upper extremities. Buffet Manager strength symmetric bilaterally. Decreased right quadricep strength on knee extension. Dorsi and plantar flexion strength appears normal and is symmetric. ECHOCARDIOGRAM 06/18/21: -- Normal LV systolic function. -- LVEF 55% to 60%, normal wall motion. -- Mild concentric LVH. -- Grade I LV diastolic dysfunction. -- Mild AI. -- Moderate mitral regurgitation. -- Moderately dilated left atrium. Results & Data Results & Data ([facility]) Vital Signs (Past 12 Hours) Vital Signs Temp Pulse Resp BP Pulse Ox 06/18/21 09:10 68 19 153/94 H 94 06/18/21 09:00 69 15 90 06/18/21 08:30 96 H 15 06/18/21 08:00 70 14 06/18/21 07:30 75 19 06/18/21 07:00 74 16 06/18/21 06:30 77 19 06/18/21 06:18 83 18 96 06/18/21 06:02 36.8 C 77 18 183/83 H 96 Laboratory Results Laboratory Results - last 24 hr 06/18/21 06/18/21 06/18/21 06:30 06:30 06:30 WBC 7.41 RBC 4.94 Hgb 14.9 Hct 44.7 MCV 90.5 MCH 30.2 MCHC 33.3 RDW Std Deviation 45.2 RDW Coeff of Natasha 13.7 Plt Count 239 MPV 10.4 Immature Gran % (Auto) 0.3 Neut % (Auto) 57.9 Lymph % (Auto) 28.5 [place] % (Auto) 9.4 Eos % (Auto) 3.4 Baso % (Auto) 0.5 Neut # (Auto) 4.29 Lymph # (Auto) 2.11 [place] # (Auto) 0.70 H Eos # (Auto) 0.25 Baso # (Auto) 0.04 Immature Gran # (Auto) 0.02 PT 10.9 INR 1.1 APTT 36.5 H PTT Ratio 1.4 Sodium 134 L Potassium 4.2 Chloride 103 Carbon Dioxide 21 Anion Gap 10 BUN 22 Creatinine 0.95 Est Cr Clr Drug Dosing 47.5 Est GFR ( Amer) 81.9 Est GFR (Non-Af Amer) 70.7 BUN/Creatinine Ratio 23.2 H Glucose 199 H POC Glucose Calcium 9.0 Magnesium 1.9 Total Bilirubin 0.6 AST 23 ALT 10 Alkaline Phosphatase 43 Troponin I < 0.03 Total Protein 6.5 Albumin 3.9 Globulin 2.6 Albumin/Globulin Ratio 1.5 SARS-CoV-2, RNA, NAAT 06/18/21 06/18/21 06:30 10:25 WBC RBC Hgb Hct MCV MCH MCHC RDW Std Deviation RDW Coeff of Natasha Plt Count MPV Immature Gran % (Auto) Neut % (Auto) Lymph % (Auto) [place] % (Auto) Eos % (Auto) Baso % (Auto) Neut # (Auto) Lymph # (Auto) [place] # (Auto) Eos # (Auto) Baso # (Auto) Immature Gran # (Auto) PT INR APTT PTT Ratio Sodium Potassium Chloride Carbon Dioxide Anion Gap BUN Creatinine Est Cr Clr Drug Dosing Est GFR ( Amer) Est GFR (Non-Af Amer) BUN/Creatinine Ratio Glucose POC Glucose 178 H Calcium Magnesium Total Bilirubin AST ALT Alkaline Phosphatase Troponin I Total Protein Albumin Globulin Albumin/Globulin Ratio SARS-CoV-2, RNA, NAAT NEGATIVE Diagnostic Findings CT angio neck with con, CT head/brain wo con, CT angio head w con CLINICAL HISTORY: Stroke Like Symptoms difficulty walking. TECHNIQUE: Contiguous axial CT images of the head were acquired from the base of the skull to the vertex without intravenous contrast administration. CT angiography of the head and neck was performed following intravenous administration of iodinated contrast. Coronal and sagittal MIPS were obtained from the axial data set and were submitted for review. Automated dose lowering techniques and/or adjustment according to patient size were utilized for this examination. All measurements were calculated based on NASCET criteria. Comparison: None available at the time of this dictation. FINDINGS: CT head: There is no acute intracranial hemorrhage or evidence of acute territorial infarction. No shift of the midline structures, mass effect, or extra-axial abnormalities are shown. There is a left thyroid nodule measuring 15 mm. CTA Neck: The left common carotid artery shares common origin with the innominate artery. Atherosclerotic plaque is present in the aortic arch. There is no plaque at the origins of the innominate, left and right common carotid, or left subclavian arteries. The common carotid, external carotid, cervical segments of the internal carotid arteries, and the cervical segments of the vertebral arteries are patent without hemodynamically significant stenosis. The vertebral arteries are codominant. CTA Head: The anterior and posterior cerebral circulations are patent. No hemodynamically significant stenosis, aneurysm, dissection, or arteriovenous malformation is shown. Atherosclerotic disease is noted. IMPRESSION: 1. No acute intracranial hemorrhage, evidence of acute territorial infarction, or other acute intracranial disease process. 2. No occlusion, hemodynamically significant stenosis, aneurysm, dissection, or arteriovenous malformation in the major intracranial arteries. 3. No occlusion, hemodynamically significant stenosis, or dissection in the major cervical arteries. STAT MRI BRAIN 06/18/21: Brain parenchyma: There is a 7 mm focus of restricted diffusion identified in the left esperanza. This has modestly increased in size as compared to 06/16/2021. No additional foci of acute ischemia are identified. There is age-related involutional change noting moderate to advanced subcortical and periventricular microangiopathic disease. There is no hemorrhage or mass effect. Garcia-white matter differentiation is preserved. No extra-axial fluid collection is seen. Tiny foci of hemosiderin deposition are again seen within the thalami. Chronic lacunar infarcts are noted in both thalami. There is also chronic hemosiderin deposition identified in the left external capsule. The cerebellar tonsils are normal in configuration. Ventricles, sulci, and cisterns: Prominent secondary to involutional change. Pituitary and sella: Unremarkable. Intracranial vasculature: Normal flow voids are maintained at the skull base. Orbits: The bony orbits are grossly intact. Orbital contents are normal in appearance noting bilateral ocular lens implants. Sinuses and mastoids: Clear. Calvarium: Unremarkable. Cervical cord: Partially visualized cervical spinal cord is normal in morphology and signal intensity. IMPRESSION: 1. Again seen is a small subacute lacunar infarct in the left esperanza. This has modestly increased in size as compared to the 06/16/2021 examination. 2. No new foci of acute ischemia are identified. 3. There is no hemorrhage or mass effect. Medications Administered Medications latanoprost 0.005 % eye drops 1 drops OPR HS ml 11/21/18 [History Confirmed 06/18/21] multivitamin (Multiple Vitamins) 1 tab PO QAM 11/21/18 [History Confirmed 06/18/21] cholecalciferol (vitamin D3) 50 mcg (2,000 unit) tablet 2,000 units PO QAM tab 06/13/19 [History Confirmed 06/18/21] insulin glargine 100 unit/mL (3 mL) subcutaneous pen (Lantus Solostar U-100 Insulin) See Rx Instructions SQ DAILY #15 ml 04/13/21 [Rx Confirmed 06/18/21] niacin 500 mg tablet,extended release 500 mg PO HS #90 tab 04/13/21 [Rx Confirmed 06/18/21] metformin 500 mg tablet 500 mg PO BID #180 tab 05/11/21 [Rx Confirmed 06/18/21] atorvastatin 40 mg tablet 40 mg PO QAM #30 tab 06/17/21 [Rx Confirmed 06/18/21] amlodipine 5 mg tablet 5 mg PO HS 06/18/21 [History Confirmed 06/18/21] clopidogrel 75 mg tablet (Plavix) 75 mg PO QAM 06/18/21 [History Confirmed 06/18/21] Home Medications Acetaminophen (Acetaminophen 325 Mg Tab) 650 mg PO Q4H PRN PRN Reason: Pain or Fever Stop: 07/18/21 11:27 Al Hydrox/Mg Hydrox/Simethicone (Aluminum/Magnesium Susp 30 Ml Udc) 15 ml PO Q4H PRN PRN Reason: Dyspepsia Stop: 07/18/21 11:27 Amlodipine Besylate (Amlodipine Besylate 5 Mg Tab) 5 mg PO HS MIGUEL ANGEL Stop: 07/18/21 20:59 Atorvastatin Calcium (Atorvastatin 40 Mg Tab) 40 mg PO QAM MIGUEL ANGEL Stop: 07/18/21 11:59 Clopidogrel Bisulfate (Clopidogrel Bisulfate 75 Mg Tab) 75 mg PO QAM MIGUEL ANGEL Stop: 07/18/21 11:59 Heparin Sodium (Porcine) (Heparin Sod 5,000 Unit/0.5 Ml Vial) 5,000 units SQ Q12 MIGUEL ANGEL Stop: 07/18/21 20:59 Potassium Chloride/Sodium Chloride (Normal Saline W/20 Meq Kcl) 20 meq in 1,000 mls @ 75 mls/hr IV .[id number] MIGUEL ANGEL Stop: 06/19/21 14:07 Insulin Glargine (Insulin Glargine Solostar 100 Units/Ml 3 Ml Pen) 0 units SQ DAILY MIGUEL ANGEL Stop: 07/18/21 11:27 Latanoprost (Latanoprost 0.005% Op Soln 2.5 Ml Btl) 1 drops OPR HS MIGUEL ANGEL Stop: 07/18/21 20:59 Magnesium Hydroxide (Magnesium Hydroxide Susp 30 Ml Udc) 30 ml PO Q12H PRN PRN Reason: Constipation Stop: 07/18/21 11:27 Miscellaneous Information (Pharmacy Glycemic Mgmt Consult) 1 ea N/A UD PRN PRN Reason: Consult Stop: 07/18/21 11:27 Morphine Sulfate (Morphine Sulfate 2 Mg/Ml Carp) 2 mg IV Q30M PRN PRN Reason: Chest Pain Stop: 07/02/21 11:27 Multivitamins (Multivitamin Tab) 1 tab PO QAM MIGUEL ANGEL Stop: 07/19/21 08:59 Nitroglycerin (Nitroglycerin Sl 0.4 Mg/Tab Tab) 0.4 mg SL UD PRN PRN Reason: Chest Pain Stop: 07/18/21 11:27 Non-Formulary Medication (Niacin) 500 mg PO HS MIGUEL ANGEL Stop: 07/18/21 20:59 Ondansetron HCl (Ondansetron Inj 2 Mg/Ml 2 Ml Vial) 4 mg IV Q6H PRN PRN Reason: Nausea Stop: 07/18/21 11:27 Polyethylene Glycol (Polyethylene (Miralax) 17 Gm Pack) 17 gm PO DAILY PRN PRN Reason: Constipation Stop: 07/18/21 11:27 Vitamin D (Cholecalciferol 1,000 Units 25 Mcg Tab) 2,000 units PO QAM MIGUEL ANGEL Stop: 07/18/21 11:59 Zolpidem Tartrate (Zolpidem Tartrate 5 Mg Tab) 5 mg PO HS PRN PRN Reason: Sleep Stop: 07/18/21 11:27 Code Status & VTE Plan Code Status Full Code VTE Prophylaxis Plan VTE Prophylaxis will be ordered: Yes Supervising Physician Co-Signing Physician Notes I have personally evaluated and examined this patient. I agree with assessment and plan of Nori Reyes PA-C. MRI completed: Medically optimized. Will obtain PT/OT evaluation, would likely benefit from Post-Stroke rehab to maintain level of independence. MRI OF THE BRAIN WITHOUT IV CONTRAST CLINICAL HISTORY: Recent stroke. Worsening weakness. Loss of balance and difficulty walking. Facial droop. COMPARISON STUDY: CT of the brain dated 06/18/2021. MRI of the brain dated 06/16/2021. TECHNIQUE: MRI of the brain was performed utilizing various T1 and T2-weighted sequences in the axial, sagittal, and coronal planes. IV contrast was not administered for this examination. FINDINGS: Brain parenchyma: There is a 7 mm focus of restricted diffusion identified in the left esperanza. This has modestly increased in size as compared to 06/16/2021. No additional foci of acute ischemia are identified. There is age-related involutional change noting moderate to advanced subcortical and periventricular microangiopathic disease. There is no hemorrhage or mass effect. Garcia-white matter differentiation is preserved. No extra-axial fluid collection is seen. Tiny foci of hemosiderin deposition are again seen within the thalami. Chronic lacunar infarcts are noted in both thalami. There is also chronic hemosiderin deposition identified in the left external capsule. The cerebellar tonsils are normal in configuration. Ventricles, sulci, and cisterns: Prominent secondary to involutional change. Pituitary and sella: Unremarkable. Intracranial vasculature: Normal flow voids are maintained at the skull base. Orbits: The bony orbits are grossly intact. Orbital contents are normal in appearance noting bilateral ocular lens implants. Sinuses and mastoids: Clear. Calvarium: Unremarkable. Cervical cord: Partially visualized cervical spinal cord is normal in morphology and signal intensity. IMPRESSION: 1. Again seen is a small subacute lacunar infarct in the left esperanza. This has modestly increased in size as compared to the 06/16/2021 examination. 2. No new foci of acute ischemia are identified. 3. There is no hemorrhage or mass effect. ACT 112: Negative or not required by law. PG Care Time/CCT Total # of Minutes Spent Total Time Spent with Patient: Total time spent is greater than 50% in coordination of care (as documented) at patient's floor/unit and/or counseling patient:53 Coding Level of Care Code 76182 Initial Inpt Care Lvl 3 Diagnoses Extension of stroke I63.9 Left pontine stroke I63.9 Hypertension I10 Hyperlipidemia E78.2 Hyperlipidemia type: mixed hyperlipidemia Type 2 diabetes mellitus E11.9 Diabetes mellitus termite renewal inspector insulin use: with termite renewal inspector use (1) Type 2 diabetes mellitus Diabetes mellitus nursing home insulin use: with termite renewal inspector use (2) Hyperlipidemia Hyperlipidemia type: mixed hyperlipidemia Qualified Code(s): E78.2 - Mixed hyperlipidemia
[2021-06-18] MEDS ORDERED: NITROGLYCERIN SL 0.4 MG/TAB TAB SL PRN (11:28)
[2021-06-18] MEDS ORDERED: ONDANSETRON INJ 2 MG/ML 2 ML VIAL IV PRN (11:28)
[2021-06-18] MEDS ORDERED: MoRPHine SULFATE 2 MG/ML CARP IV PRN (11:28)
[2021-06-18] MEDS ORDERED: POLYETHYLENE (MIRALAX) 17 GM PACK PO PRN (11:28)
[2021-06-18] MEDS ORDERED: ZOLPIDEM TARTRATE 5 MG TAB PO PRN (11:28)
[2021-06-18] MEDS ORDERED: ALUMINUM/MAGNESIUM SUSP 30 ML UDC PO PRN (11:28)
[2021-06-18] MEDS ORDERED: MAGNESIUM HYDROXIDE SUSP 30 ML UDC PO PRN (11:28)
[2021-06-18] MEDS ORDERED: PHARMACY GLYCEMIC MGMT CONSULT PRN (11:28)
[2021-06-18] MEDS ORDERED: GLUCOSE 40% GEL 15 GM TUBE PO PRN (12:15)
[2021-06-18] MEDS ORDERED: GLUCOSE 10 TABS/TUBE PO PRN (12:15)
[2021-06-18] MEDS ORDERED: CARBOHYDRATES FOR HYPOGLYCEMIA PO PRN (12:15)
[2021-06-18] MEDS ORDERED: GLUCAGON FOR INJ 1 MG VIAL IM PRN (12:15)
[2021-06-18] MEDS ORDERED: DEXTROSE 50% 50 ML SYRINGE IV PRN (12:15)
[2021-06-18] MEDS ORDERED: INSULIN ASPART 100 UNITS/ML 3 ML PEN SC SCH (12:30)
[2021-06-18] MEDS ORDERED: INSULIN GLARGINE SOLOSTAR 100 UNITS/ML 3 ML PEN SQ ONE (12:30)
--- NOTE | 2021-06-18 13:46 | Magnetic Resonance Report ---
MRI OF THE BRAIN WITHOUT IV CONTRAST CLINICAL HISTORY: Recent stroke. Worsening weakness. Loss of balance and difficulty walking. Facial d chip. COMPARISON STUDY: CT of the brain dated 06/18/2021. MRI of the brain dated 06/16/2021. TECHNIQUE: MRI of the brain was performed utilizing various T1 and T2-weighted sequences in the axial , sagittal, and coronal planes. IV contrast was not administered for this examination. FINDINGS: Brain parenchyma: There is a 7 mm focus of restricted diffusion identified in the left esperanza. This has modestly increased in size as compared to 06/16/2021. No additional foci of acute ischemia are identi fied. There is age-related involutional change noting moderate to advanced subcortical and periventri cular microangiopathic disease. There is no hemorrhage or mass effect. Garcia-white matter differentiat ion is preserved. No extra-axial fluid collection is seen. Tiny foci of hemosiderin deposition are ag ain seen within the thalami. Chronic lacunar infarcts are noted in both thalami. There is also chroni c hemosiderin deposition identified in the left external capsule. The cerebellar tonsils are normal i n configuration. Ventricles, sulci, and cisterns: Prominent secondary to involutional change. Pituitary and sella: Unremarkable. Intracranial vasculature: Normal flow voids are maintained at the skull base. Orbits: The bony orbits are grossly intact. Orbital contents are normal in appearance noting bilatera l ocular lens implants. Sinuses and mastoids: Clear. Calvarium: Unremarkable. Cervical cord: Partially visualized cervical spinal cord is normal in morphology and signal intensity . IMPRESSION: 1. Again seen is a small subacute lacunar infarct in the left esperanza. This has modestly increased in si ze as compared to the 06/16/2021 examination. 2. No new foci of acute ischemia are identified. 3. There is no hemorrhage or mass effect. ACT 112: Negative or not required by law. Electronically signed by: Kolton Francois M.D. 06/18/2021 1:45 PM
[2021-06-18] MEDS: NSS + 20MEQ KCL 20 MEQ/1,000 ML BAG IV SCH (13:56)
[2021-06-18] MEDS: CLOPIDOGREL BISULFATE 75 MG TAB PO SCH (13:56)
[2021-06-18] MEDS: CHOLECALCIFEROL 1,000 UNITS 25 MCG TAB PO SCH (13:57)
[2021-06-18] MEDS: ATORVASTATIN 40 MG TAB PO SCH (13:58)
--- NOTE | 2021-06-18 14:27 | Electrocardiogram Report ---
Test Reason : Blood Pressure : / mmHG Vent. Rate : 077 BPM Atrial Rate : 077 BPM P-R Int : 170 ms QRS Dur : 090 ms QT Int : 402 ms P-R-T Axes : 006 -02 034 degrees QTc Int : 454 ms Poor data quality, interpretation may be adversely affected Normal sinus rhythm Diffuse Minor Nonspecific T wave abnormality Abnormal ECG When compared with ECG of 16-JUN-2021 10:06, No significant change Confirmed by Nj Leija ([id number] on 06/18/2021 2:27:25 PM Referred By: ER Confirmed By:Nj Leija
--- NOTE | 2021-06-18 15:03 | Pharmacy Report ---
Pharmacy Glycemic Short Note 2 - Date of Service June 18, 2021 - Glycemic Short BSG Results (Last 24 hours): 06/18/21 06/18/21 06:30 06:30 Glucose 199 H POC Glucose 178 H OUTPATIENT ANTIDIABETIC REGIMEN: * Lantus 21 units SQ qAM, 14 units SQ qPM * Metformin 500 mg PO BID * A1c = 7.5% ASSESSMENT: * Patient was discharged from our facility yesterday evening. His home dose of 35 units per day was split into 50% basal + 50% bolus during that admission. He received Lantus 10 units yesterday morning - unsure if he took evening dose at home. * Fasting BSG of 199 mg/dL. I will give a loading dose of Lantus this morning, then resume 10 units BID. PLAN FOR INPATIENT GLYCEMIC CONTROL: * Hold outpatient oral diabetes medications * Basal insulin * Lantus 20 units SQ now then start 10 units BID tomorrow * Bolus insulin * NovoLog per scale ACHS or Q6hrs while NPO * Goal Range: Low 120 mg/dL - High 150 mg/dL * Correction Factor: 35 mg/dL/unit * Nutritional / Prandial insulin per carb ratio of 1 unit per 12 grams CHO consumed PLAN FOR DISCHARGE: * A1c of 7.5% is acceptable
[2021-06-18] MEDS: INSULIN ASPART 100 UNITS/ML VIAL SC SCH ×3 (16:22→20:48)
[2021-06-18] MEDS: ASPIRIN 81 MG ECTAB PO SCH (16:48)
[2021-06-18] MEDS: amLODIPine BESYLATE 5 MG TAB PO SCH (20:40)
[2021-06-18] MEDS: HEPARIN SOD 5,000 UNIT/0.5 ML VIAL SQ SCH (20:40)
[2021-06-18] MEDS: NIACIN EXTENDED REL 500 MG TABCR PO SCH (20:40)
[2021-06-18] MEDS: LATANOPROST 0.005% OP SOLN 2.5 ML BTL OPR SCH (21:51)
[2021-06-19] MEDS: NSS + 20MEQ KCL 20 MEQ/1,000 ML BAG IV SCH (03:37)
[2021-06-19] MEDS: CHOLECALCIFEROL 1,000 UNITS 25 MCG TAB PO SCH (08:05)
[2021-06-19] MEDS: HEPARIN SOD 5,000 UNIT/0.5 ML VIAL SQ SCH ×2 (08:05→20:05)
[2021-06-19] MEDS: ATORVASTATIN 40 MG TAB PO SCH (08:05)
[2021-06-19] MEDS: CLOPIDOGREL BISULFATE 75 MG TAB PO SCH (08:05)
[2021-06-19] MEDS: MULTIVITAMIN TAB PO SCH (08:05)
[2021-06-19] MEDS: INSULIN ASPART 100 UNITS/ML VIAL SC SCH (08:07)
[2021-06-19] MEDS ORDERED: INSULIN GLARGINE SOLOSTAR 100 UNITS/ML 3 ML PEN SQ SCH ×2 (09:00→21:00)
[2021-06-19] MEDS ORDERED: INSULIN ASPART PER UNIT SC ONE (09:45)
[2021-06-19] MEDS: INSULIN ASPART PER UNIT SC SCH ×3 (12:15→21:02)
--- NOTE | 2021-06-19 13:09 | Pharmacy Report ---
Pharmacy Glycemic Short Note 2 - Date of Service June 19, 2021 - Glycemic Short BSG Results (Last 24 hours): 06/18/21 06/19/21 06/19/21 20:43 07:34 11:02 POC Glucose 125 H 165 H 271 H OUTPATIENT ANTIDIABETIC REGIMEN: * Lantus 21 units SQ qAM, 14 units SQ qPM * Metformin 500 mg PO BID * A1c = 7.5% ASSESSMENT: 06/19/21: * Fasting BSG above goal. Will increase evening dose of Lantus to home dose of 14 units for tonight, then start BID dosing per BSG scale. * Post prandial elevation at lunchtime. Will tighten novolog CF/CR. 06/18/21: * Patient was discharged from our facility yesterday evening. His home dose of 35 units per day was split into 50% basal + 50% bolus during that admission. He received Lantus 10 units yesterday morning - unsure if he took evening dose at home. * Fasting BSG of 199 mg/dL. I will give a loading dose of Lantus this morning, then resume 10 units BID. PLAN FOR INPATIENT GLYCEMIC CONTROL: * Hold outpatient oral diabetes medications * Basal insulin - increase * 06/19: Lantus 10 units AM, 14 units PM * 06/20: Start Lantus 10-17 units SQ BID per scale * Bolus insulin - tighten * NovoLog per scale ACHS or Q6hrs while NPO * Goal Range: Low 120 mg/dL - High 150 mg/dL * Correction Factor: 25 mg/dL/unit * Nutritional / Prandial insulin per carb ratio of 1 unit per 9 grams CHO consumed PLAN FOR DISCHARGE: * A1c of 7.5% is acceptable * Continue home regimen as long as patient denies frequent hypoglycemia and renal function remains acceptable for metformin
--- NOTE | 2021-06-19 15:36 | Electrocardiogram Report ---
Test Reason : Blood Pressure : / mmHG Vent. Rate : 073 BPM Atrial Rate : 073 BPM P-R Int : 180 ms QRS Dur : 088 ms QT Int : 412 ms P-R-T Axes : -19 -04 -32 degrees QTc Int : 453 ms Sinus rhythm with frequent Premature ventricular complexes Nonspecific T wave abnormality Abnormal ECG When compared with ECG of 18-JUN-2021 06:16, Premature ventricular complexes are now Present Confirmed by Osman Driscoll ([id number]) on 06/19/2021 3:35:54 PM Referred By: REFERRED SELF Confirmed By:Osman Driscoll
--- NOTE | 2021-06-19 18:37 | Hospitalist Progress Note ---
Date of Service June 19, 2021 Assessment & Plan (1) Acute ischemic stroke: Plan: appears overall very similar to time of dischargee 06/17 -either small extension of small vessel disease pontine stroke (for which nothing specific can really be done, but fortunately new deficit quite small if at all present) or more likely just post stroke edema causing some mild progression of sx -continue plavix, atorvastatin. as before - consider change amlodipine to ACEi or ARB in the future but did not want to make many major med changes all at once -med/surg -follow into tomorrow for reassurance -anticipate home again then DVT prohp - heparin SQ Admission and Anticipated Discharge Date Admission Date: June 18, 2021 Subjective slurred speech but otherwise OK. notes that symptoms had come back discussed therapy - after consideration he would like to do clinic based outpt therapy Review of Systems Review of Systems: All systems reviewed & are unremarkable except as noted in HPI & below Physical Exam Physical Exam: gen aao pleasant nad heent nc at mmm breathing unlabored no accessory muscles good effort skin no rashes no pallor or icterus neuro slurred speech fairly similar to when i saw him 2 days ago. MRI noted Results & Data Results & Data ([facility]) Vital Signs (Past 12 Hours) Vital Signs Temp Pulse Resp BP Pulse Ox 06/19/21 17:00 98.2 F 70 16 122/62 96 06/19/21 12:00 98.6 F 66 18 124/63 95 06/19/21 08:25 97.9 F 59 L 18 126/69 96 PG Care Time/CCT Total # of Minutes Spent Total Time Spent with Patient: Total time spent is greater than 50% in coordination of care (as documented) at patient's floor/unit and/or counseling patient: Coding Level of Care Code 23230 Subseq Hosp Care Lvl 2 Diagnoses Acute ischemic stroke I63.9
[2021-06-19] MEDS: LATANOPROST 0.005% OP SOLN 2.5 ML BTL OPR SCH (20:04)
[2021-06-19] MEDS: NIACIN EXTENDED REL 500 MG TABCR PO SCH (20:04)
[2021-06-19] MEDS: amLODIPine BESYLATE 5 MG TAB PO SCH (20:05)
[2021-06-20] MEDS: CHOLECALCIFEROL 1,000 UNITS 25 MCG TAB PO SCH (08:40)
[2021-06-20] MEDS: MULTIVITAMIN TAB PO SCH (08:40)
[2021-06-20] MEDS: ATORVASTATIN 40 MG TAB PO SCH (08:40)
[2021-06-20] MEDS: CLOPIDOGREL BISULFATE 75 MG TAB PO SCH (08:40)
[2021-06-20] MEDS: HEPARIN SOD 5,000 UNIT/0.5 ML VIAL SQ SCH ×2 (08:40→21:02)
[2021-06-20] MEDS: INSULIN ASPART PER UNIT SC SCH ×4 (08:47→21:00)
[2021-06-20] MEDS ORDERED: INSULIN GLARGINE SOLOSTAR 100 UNITS/ML 3 ML PEN SQ SCH ×3 (09:00→21:00)
[2021-06-20 10:28] LABS: BUN Creatinine Ratio 16.7 (10-20); Calcium 9.1 mg/dl (8.5-10.1); Creatinine Clr Calc Pharmacy 43.8 ml/min; Est GFR (African American) 75.2 ml/min; Est GFR (Non-African American) 64.9 ml/min; Potassium 3.8 mmol/L (3.5-5.1)
--- NOTE | 2021-06-20 11:29 | Hospitalist Progress Note ---
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 previously admitted for such and discharged to home with on 06/17/21. returned with worsening symptoms. MRI 06/18/21 showed modest worsening of the original infarct but no hemorrhage. Continue plavix, atorvastatin. Continue PT, OT. Will ask speech to see again due to his complaints of dysphagia this am. He is agreeable to rehab post-d/c - he is excellent candidate for such given his symptoms/signs. I notified case management of this. His goal is to return home with his following rehab. (2) Extension of stroke: Plan: see above (3) BPH (benign prostatic hyperplasia): Plan: no issues not on meds for such (4) Hypertension: Plan: cont current meds including amlodipine (5) Hyperlipidemia: Plan: cont statin cont niacin LDL recently was 71 (6) Type 2 diabetes mellitus: Plan: appreciate pharmacy input cont basal-bolus regimen (7) DVT prophylaxis: Plan: heparin BID (8) Chronic renal failure, stage 3a: Plan: baseline CrCl 45=59 Admission and Anticipated Discharge Date Admission Date: June 18, 2021 Subjective pt very tearful during the visit support given to him he stated that he is willing to go to inpatient rehab PT worked with him this am - suggested such denies any new complaints "weak" when he tries to walk he also stated he coughed/choked when he drank coffee this am Review of Systems Review of Systems: gen - no fevers cv - no cp, no orthopnea pulm - no cough GI - no n/v Physical Exam Physical Exam: gen - very tearful, emotional; dysarthric speech face - right sided droop mouth - MMM neck - no JVD heart - RRR, s1 s2 lungs - CTA b/l abd - soft NT ND BS+ ext - no edema neuro - right facial droop; 4-5/5 strength RUE; 4-5/5 strength RLE; 5/5 strength LUE/LLE; gait not tested Results & Data Results & Data ([facility]) Vital Signs (Past 12 Hours) Vital Signs Temp Pulse Resp BP Pulse Ox 06/20/21 08:22 36.8 C 73 18 118/79 92 Laboratory Results Laboratory Results - last 24 hr 02/06/19/21 06/20/21 16:32 20:52 08:09 Sodium Potassium Chloride Carbon Dioxide Anion Gap BUN Creatinine Est Cr Clr Drug Dosing Est GFR ( Amer) Est GFR (Non-Af Amer) BUN/Creatinine Ratio Glucose POC Glucose 75 190 H 154 H Calcium Vitamin B12 TSH 06/20/21 06/20/21 06/20/21 09:40 09:40 09:40 Sodium 135 L Potassium 3.8 Chloride 102 Carbon Dioxide 23 Anion Gap 10 BUN 17 Creatinine 1.02 Est Cr Clr Drug Dosing 43.8 Est GFR ( Amer) 75.2 Est GFR (Non-Af Amer) 64.9 BUN/Creatinine Ratio 16.7 Glucose 336 H* POC Glucose Calcium 9.1 Vitamin B12 577 TSH 2.453 PG Care Time/CCT Total # of Minutes Spent Total Time Spent with Patient: Total time spent is greater than 50% in coordination of care (as documented) at patient's floor/unit and/or counseling patient: Coding Level of Care Code 63814 Subseq Hosp Care Lvl 2 Diagnoses Acute ischemic stroke I63.9 Extension of stroke I63.9 BPH (benign prostatic hyperplasia) N40.0 Hypertension I10 Hyperlipidemia E78.2 Hyperlipidemia type: mixed hyperlipidemia Type 2 diabetes mellitus E11.9 Diabetes mellitus group home insulin use: with ad terminal makeup operator use DVT prophylaxis Z29.9 Chronic renal failure, stage 3a N18.31 (1) Hyperlipidemia Hyperlipidemia type: mixed hyperlipidemia Qualified Code(s): E78.2 - Mixed hyperlipidemia (2) Type 2 diabetes mellitus Diabetes mellitus ad terminal makeup operator insulin use: with group home use
[2021-06-20] MEDS: ASPIRIN 81 MG ECTAB PO SCH (15:04)
[2021-06-20] MEDS: NIACIN EXTENDED REL 500 MG TABCR PO SCH (21:02)
[2021-06-20] MEDS: amLODIPine BESYLATE 5 MG TAB PO SCH (21:02)
[2021-06-20] MEDS: LATANOPROST 0.005% OP SOLN 2.5 ML BTL OPR SCH (21:02)
[2021-06-21] MEDS: ACETAMINOPHEN 325 MG TAB PO PRN ×2 (00:24→21:51)
[2021-06-21] MEDS ORDERED: INSULIN ASPART PER UNIT SC SCH (07:30)
[2021-06-21] MEDS: INSULIN GLARGINE SOLOSTAR 100 UNITS/ML 3 ML PEN SQ SCH ×2 (09:02→21:46)
[2021-06-21] MEDS: HEPARIN SOD 5,000 UNIT/0.5 ML VIAL SQ SCH ×2 (09:03→21:55)
[2021-06-21] MEDS: CLOPIDOGREL BISULFATE 75 MG TAB PO SCH (09:03)
[2021-06-21] MEDS: CHOLECALCIFEROL 1,000 UNITS 25 MCG TAB PO SCH (09:03)
[2021-06-21] MEDS: ATORVASTATIN 40 MG TAB PO SCH (09:03)
--- NOTE | 2021-06-21 09:13 | CT Scan Report ---
CT head/brain wo con CLINICAL HISTORY: 89 years-old Male with L pontine CVA; eval hemorrhagic transformation. Acute strok elike symptoms TECHNIQUE: Multiple axial CT images of the head were obtained without contrast. A dose lowering tech nique was utilized adhering to the principles of ALARA. CT DOSE: 537.48 mGy.cm COMPARISON: Brain MRI 06/18/2020 FINDINGS: No acute intracranial hemorrhage, midline shift, intracranial mass, hydrocephalus, territorial ischem ia or abnormal extra-axial collection. 7 mm subacute left pontine infarct on image 7 series 2 is unch anged from the most recent comparison. Age-related involutional changes. White matter hypodensities s uggest chronic microvascular ischemic disease. The calvarium is intact. Prior bilateral lens repair. The paranasal sinuses, mastoid air cells, and m iddle ear cavities are clear. IMPRESSION: 1. 7 mm subacute left pontine infarct appears unchanged from the 06/18/2021 study. No acute intracrani al hemorrhage. 2. Age-related involutional changes with chronic microvascular ischemic disease. ACT 112: Negative or not required by law. The above report was generated using voice recognition software. It may contain grammatical, syntax o r spelling errors. Electronically signed by: Pola Black M.D. 06/21/2021 9:12 AM
--- NOTE | 2021-06-21 09:21 | Pharmacy Report ---
Pharmacy Glycemic Short Note 2 - Date of Service June 21, 2021 - Glycemic Short BSG Results (Last 24 hours): 06/20/21 06/20/21 06/20/21 09:40 11:55 17:04 Glucose 336 H* POC Glucose 283 H 169 H 06/20/21 06/21/21 20:45 07:48 Glucose POC Glucose 193 H 147 H OUTPATIENT ANTIDIABETIC REGIMEN: * Lantus 21 units SQ qAM, 14 units SQ qPM * Metformin 500 mg PO BID * A1c = 7.5% ASSESSMENT: 06/21/21: * BSG trend remains consistent with elevated lunchtime BSG yesterday (283 mg/dL), fasting BSG of 147 mg/dL this AM * Received 54 units of insulin (28 units of basal and 26 units of prandial/zafar ectional bolus) * Will tighten Novolog parameters (tightest in AM) and slightly increase basal insulin today 06/19/21: * Fasting BSG above goal. Will increase evening dose of Lantus to home dose of 14 units for tonight, then start BID dosing per BSG scale. * Post prandial elevation at lunchtime. Will tighten novolog CF/CR. 06/18/21: * Patient was discharged from our facility yesterday evening. His home dose of 35 units per day was split into 50% basal + 50% bolus during that admission. He received Lantus 10 units yesterday morning - unsure if he took evening dose at home. * Fasting BSG of 199 mg/dL. I will give a loading dose of Lantus this morning, then resume 10 units BID. PLAN FOR INPATIENT GLYCEMIC CONTROL: * Hold outpatient oral diabetes medications * Basal insulin - increase * Lantus 15 units SC BID * Bolus insulin - tighten * NovoLog per scale ACHS or Q6hrs while NPO * Goal Range: Low 120 mg/dL - High 150 mg/dL * Correction Factor: 20 mg/dL/unit with breakfast and 30 mg/dL/unit at lunch, dinner, HS * Nutritional / Prandial insulin per carb ratio of 1 unit per 7 grams CHO consumed with breakfast, 1 unit per 8 grams CHO consumed with lunch, dinner, HS PLAN FOR DISCHARGE: * A1c of 7.5% is acceptable * Continue home regimen as long as patient denies frequent hypoglycemia and renal function remains acceptable for metformin
[2021-06-21] MEDS: MULTIVITAMIN TAB PO SCH (10:03)
[2021-06-21 10:59] LABS: Appearance Urine Clear (Clear); Bilirubin Urine Negative (Negative); Blood Urine Negative (Negative); Color Urine Yellow; Glucose Urine UA 3+ (Negative); Ketones Urine Trace (Negative); Leukocyte Esterase Urine Negative (Negative); Nitrite Urine Negative (Negative); Protein Urine Negative (Negative); Specific Gravity Urine 1.025 (1.000-1.030); Urobilinogen Urine Negative (Negative)
[2021-06-21] MEDS: INSULIN ASPART PER UNIT SC SCH ×3 (12:37→21:45)
--- NOTE | 2021-06-21 19:08 | Hospitalist Progress Note ---
Date of Service June 21, 2021 Assessment & Plan (1) Acute ischemic stroke: Plan: L pontine CVA. previously admitted for such and discharged to home with on 06/17/21. returned with worsening symptoms. MRI 06/18/21 showed modest worsening of the original infarct but no hemorrhage. Continue plavix, atorvastatin. Continue PT, OT. Repeat speech eval yesterday for swallowing - no additional recommendations given. CT head today unchanged from prior with no hemorrhage. I believe he has "completed" his stroke over the last 1-2 days. Defer on repeat MRI brain today. He is agreeable to rehab post-d/c - he is excellent candidate for acute inpatient rehab - needs aggressive PT, OT, and speech for his deficits. His goal is to return home with his following rehab. (2) Extension of stroke: Plan: see above repeat head CT today unchanged and neg for new findings (3) BPH (benign prostatic hyperplasia): Plan: no issues not on meds for such (4) Hypertension: Plan: cont amlodipine most BPs are acceptable (5) Hyperlipidemia: Plan: cont statin cont niacin LDL recently was 71 (6) Type 2 diabetes mellitus: Plan: appreciate pharmacy input cont basal-bolus regimen (7) DVT prophylaxis: Plan: heparin TID (8) Chronic renal failure, stage 3a: Plan: baseline CrCl 45=59 bmp in am for stability Plan: updated pt's by phone today she is supportive of him going to rehab updated her w/ plan of care Admission and Anticipated Discharge Date Admission Date: June 18, 2021 Subjective was notified by nursing this am that pt had ?worse right facial droop and worse slurred speech than yesterday apparently when he awoke this am it was such came to bedside - he was sitting in chair speech was mildly more dysarthric but it was fluent right facial droop more prominent today than yesterday sent him for head CT - neg for hemorrhagic transformation, and size of L pontine CVA was unchanged; no new CVA seen he was not as emotional today as yesterday still agreeable to rehab referral Review of Systems Review of Systems: gen - fatigue, good appetite cv - no cp pulm - no dyspnea GI - no abd pain neuro - denies left-sided weakness Physical Exam Physical Exam: gen - dysarthric speech mildly worse than yesterday but awake/alert; sitting in chair face - right sided droop - slightly worse than yesterday mouth - MMM neck - no JVD heart - RRR, s1 s2 lungs - CTA b/l abd - soft NT ND BS+ ext - no edema neuro - 4-5/5 strength RUE; 4-5/5 strength RLE; 5/5 strength LUE/LLE; gait not tested; right-sided deficits unchanged from yesterday Results & Data Results & Data ([facility]) Vital Signs (Past 12 Hours) Vital Signs Temp Pulse Resp BP Pulse Ox 06/21/21 15:34 36.7 C 76 20 111/67 95 06/21/21 07:28 36.8 C 76 18 172/77 H 90 Laboratory Results Laboratory Results - last 24 hr 06/20/21 06/21/21 06/21/21 20:45 07:48 10:20 POC Glucose 193 H 147 H Urine Color Yellow Urine Appearance Clear Urine pH 6.0 Ur Specific [place] 1.025 Urine Protein Negative Urine Glucose (UA) 3+ H Urine Ketones Trace H Urine Blood Negative Urine Nitrite Negative Urine Bilirubin Negative Urine Urobilinogen Negative Ur Leukocyte Esterase Negative 06/21/21 06/21/21 12:00 17:06 POC Glucose 215 H 198 H Urine Color Urine Appearance Urine pH Ur Specific [place] Urine Protein Urine Glucose (UA) Urine Ketones Urine Blood Urine Nitrite Urine Bilirubin Urine Urobilinogen Ur Leukocyte Esterase Diagnostic Findings CT head - unchanged L pontine CVA; no hemorrhage PG Care Time/CCT Total # of Minutes Spent Total Time Spent with Patient: Total time spent is greater than 50% in coordination of care (as documented) at patient's floor/unit and/or counseling patient: Coding Level of Care Code 47790 Subseq Hosp Care Lvl 2 Diagnoses Acute ischemic stroke I63.9 Extension of stroke I63.9 BPH (benign prostatic hyperplasia) N40.0 Hypertension I10 Hyperlipidemia E78.2 Hyperlipidemia type: mixed hyperlipidemia Type 2 diabetes mellitus E11.9 Diabetes mellitus exterminator insulin use: with exterminator use DVT prophylaxis Z29.9 Chronic renal failure, stage 3a N18.31 (1) Type 2 diabetes mellitus Diabetes mellitus snf insulin use: with snf use (2) Hyperlipidemia Hyperlipidemia type: mixed hyperlipidemia Qualified Code(s): E78.2 - Mixed hyperlipidemia
[2021-06-21] MEDS: LATANOPROST 0.005% OP SOLN 2.5 ML BTL OPR SCH (21:53)
[2021-06-21] MEDS: amLODIPine BESYLATE 5 MG TAB PO SCH (21:55)
[2021-06-21] MEDS: NIACIN EXTENDED REL 500 MG TABCR PO SCH (21:56)
[2021-06-22 06:36] LABS: Hematocrit (blood only) 42.3 % (42-52); Hemoglobin 14.1 g/dL (14.0-18.0); Mean Corpuscular Hgb Conc 33.3 g/dL (32-36); Mean Platelet Volume 10.9 fL (7.4-10.4); Platelet Count 252 K/uL (130-400); RDW Coefficient of Variation 13.9 % (11.5-14.5); RDW Standard Deviation 45.7 fL (36.4-46.3); White Blood Count 11.93 K/uL (4.8-10.8)
[2021-06-22 07:07] LABS: BUN Creatinine Ratio 20.8 (10-20); Calcium 8.9 mg/dl (8.5-10.1); Creatinine Clr Calc Pharmacy 46.5 ml/min; Est GFR (African American) 80.9 ml/min; Est GFR (Non-African American) 69.8 ml/min; Potassium 3.7 mmol/L (3.5-5.1)
[2021-06-22] MEDS ORDERED: INSULIN GLARGINE SOLOSTAR 100 UNITS/ML 3 ML PEN SQ SCH ×2 (09:00→21:00)
[2021-06-22] MEDS: ATORVASTATIN 40 MG TAB PO SCH (10:33)
[2021-06-22] MEDS: HEPARIN SOD 5,000 UNIT/0.5 ML VIAL SQ SCH ×2 (10:35→20:27)
[2021-06-22] MEDS: MULTIVITAMIN TAB PO SCH (10:36)
[2021-06-22] MEDS: INSULIN ASPART PER UNIT SC SCH ×4 (10:48→20:34)
[2021-06-22] MEDS: CLOPIDOGREL BISULFATE 75 MG TAB PO SCH (11:36)
[2021-06-22] MEDS: CHOLECALCIFEROL 1,000 UNITS 25 MCG TAB PO SCH (13:56)
[2021-06-22] MEDS: ASPIRIN 81 MG ECTAB PO SCH (13:56)
--- NOTE | 2021-06-22 19:57 | Hospitalist Progress Note ---
Date of Service June 22, 2021 Assessment & Plan (1) Acute ischemic stroke: Plan: L pontine CVA. previously admitted for such and discharged to home with on 06/17/21. returned with worsening symptoms. MRI 06/18/21 showed modest worsening of the original infarct but no hemorrhage. Continue plavix, atorvastatin for secondary prevention. Continue PT, OT. Repeat speech eval for swallowing - no additional recommendations given. CT head yesterday unchanged from prior with no hemorrhage. I believe he has "completed" his stroke over the last several days (symptoms had been waxing/waning and ultimately did progress). He is agreeable to rehab post-d/c - he is excellent candidate for acute inpatient rehab - needs aggressive PT, OT, and speech for his deficits. His goal is to return home with his following rehab; he was independent fully prior to the stroke. (2) Extension of stroke: Plan: see above (3) BPH (benign prostatic hyperplasia): Plan: no issues not on meds for such (4) Hypertension: Plan: cont amlodipine most BPs are acceptable especially in light of #1 (5) Hyperlipidemia: Plan: cont statin cont niacin LDL recently was 71 (6) Type 2 diabetes mellitus: Plan: cont basal-bolus regimen having lows at times - very labile BSGs (7) DVT prophylaxis: Plan: heparin SC (8) Chronic renal failure, stage 3a: Plan: baseline CrCl 45=59 BMP today stable (9) Glaucoma: Plan: cont timolol drops cont latanoprost drops both are for the right eye (10) Hyponatremia: Plan: very mild, but bears watching could develop low-grade SIADH or reset osmostat in setting of #1 repeat BMP am if Na trends down then serum osm, urine osm, urine Na Plan: updated pt's by phone yesterday she is supportive of him going to rehab updated her w/ plan of care son updated at bedside today nasal lesion - bactroban BID Admission and Anticipated Discharge Date Admission Date: June 18, 2021 Subjective patient sitting in chair about to eat his meal son was at bedside overall ok day no events he offered no specific complaints continues with difficulty with holding things with R hand, walking, etc also with ongoing slurry speech - difficult to understand him at times still very agreeable to rehab Review of Systems Review of Systems: gen - appetite wnl; no fever cv - no cp pulm - no cough/congestion/dyspnea GI - no pain/nausea/emesis Physical Exam Physical Exam: gen - dysarthric speech, right sided lower facial droop - similar to yesterday mouth - MMM neck - no JVD heart - RRR, s1 s2, no murmur lungs - CTA b/l abd - soft NT ND BS+ ext - no edema, pulses 2+ bilaterally neuro - 4-5/5 strength RUE; 4-5/5 strength RLE; 5/5 strength LUE/LLE; gait not tested; right-sided deficits unchanged from yesterday; rapid finger movements of right hand noticeably slower than left hand (he is right hand dominant) skin - tiny skin lesion/irritation bridge of nose Results & Data Results & Data ([facility]) Vital Signs (Past 12 Hours) Vital Signs Temp Pulse Resp BP Pulse Ox 06/22/21 14:44 36.4 C L 77 16 109/71 95 Laboratory Results Na 134 Cr wnl PG Care Time/CCT Total # of Minutes Spent Total Time Spent with Patient: Total time spent is greater than 50% in coordination of care (as documented) at patient's floor/unit and/or counseling patient: Coding Level of Care Code 87700 Subseq Hosp Care Lvl 2 Diagnoses Acute ischemic stroke I63.9 Extension of stroke I63.9 BPH (benign prostatic hyperplasia) N40.0 Hypertension I10 Hyperlipidemia E78.2 Hyperlipidemia type: mixed hyperlipidemia Type 2 diabetes mellitus E11.9 Diabetes mellitus extermination inspector insulin use: with extermination inspector use DVT prophylaxis Z29.9 Chronic renal failure, stage 3a N18.31 Glaucoma H40.9 Hyponatremia E87.1 (1) Type 2 diabetes mellitus Diabetes mellitus extermination inspector insulin use: with fdc use (2) Hyperlipidemia Hyperlipidemia type: mixed hyperlipidemia Qualified Code(s): E78.2 - Mixed hyperlipidemia
[2021-06-22] MEDS: amLODIPine BESYLATE 5 MG TAB PO SCH (20:26)
[2021-06-22] MEDS: NIACIN EXTENDED REL 500 MG TABCR PO SCH (20:26)
[2021-06-22] MEDS: LATANOPROST 0.005% OP SOLN 2.5 ML BTL OPR SCH (20:29)
[2021-06-22] MEDS: MUPIROCIN 2% OINT 22 GM TUBE EXT SCH (20:31)
[2021-06-22] MEDS: TIMOLOL MALEATE 0.5% OP SOLN 5 ML BTL OPR SCH (20:31)
[2021-06-23] MEDS ORDERED: INSULIN ASPART PER UNIT SC SCH (07:30)
[2021-06-23] MEDS: TIMOLOL MALEATE 0.5% OP SOLN 5 ML BTL OPR SCH ×2 (07:53→16:30)
[2021-06-23 08:18] LABS: BUN Creatinine Ratio 22.8 (10-20); Creatinine Clr Calc Pharmacy 56.5 ml/min; Est GFR (African American) 92.3 ml/min; Est GFR (Non-African American) 79.6 ml/min
[2021-06-23] MEDS: CHOLECALCIFEROL 1,000 UNITS 25 MCG TAB PO SCH (08:40)
[2021-06-23] MEDS: HEPARIN SOD 5,000 UNIT/0.5 ML VIAL SQ SCH (08:40)
[2021-06-23] MEDS: MULTIVITAMIN TAB PO SCH (08:40)
[2021-06-23] MEDS: MUPIROCIN 2% OINT 22 GM TUBE EXT SCH (08:40)
[2021-06-23] MEDS: CLOPIDOGREL BISULFATE 75 MG TAB PO SCH (08:40)
[2021-06-23] MEDS: ATORVASTATIN 40 MG TAB PO SCH (08:40)
[2021-06-23] MEDS ORDERED: INSULIN GLARGINE SOLOSTAR 100 UNITS/ML 3 ML PEN SQ SCH (09:00)
--- NOTE | 2021-06-23 12:28 | Pharmacy Report ---
Pharmacy Glycemic Short Note 2 - Date of Service June 23, 2021 - Glycemic Short BSG Results (Last 24 hours): 06/22/21 06/22/21 06/22/21 17:02 17:03 17:21 Glucose POC Glucose 59 L* 60 L* 75 06/22/21 06/23/21 06/23/21 20:26 07:43 08:05 Glucose 153 H POC Glucose 177 H 145 H 06/23/21 12:03 Glucose POC Glucose 223 H OUTPATIENT ANTIDIABETIC REGIMEN: * Lantus 21 units SQ qAM, 14 units SQ qPM * Metformin 500 mg PO BID * A1c = 7.5% (06/17/21) ASSESSMENT: 06/23/21: * Attempted to tighten Novolog yesterday, but unfortunately patient experienced hypoglycemia at dinnertime (59 mg/dL) * Will revert back to prior looser Novolog parameters and decreased Lantus dose 06/21/21: * BSG trend remains consistent with elevated lunchtime BSG yesterday (283 mg/dL), fasting BSG of 147 mg/dL this AM * Received 54 units of insulin (28 units of basal and 26 units of prandial/correctional bolus) * Will tighten Novolog parameters (tightest in AM) and slightly increase basal insulin today 06/19/21: * Fasting BSG above goal. Will increase evening dose of Lantus to home dose of 14 units for tonight, then start BID dosing per BSG scale. * Post prandial elevation at lunchtime. Will tighten novolog CF/CR. 06/18/21: * Patient was discharged from our facility yesterday evening. His home dose of 35 units per day was split into 50% basal + 50% bolus during that admission. He received Lantus 10 units yesterday morning - unsure if he took evening dose at home. * Fasting BSG of 199 mg/dL. I will give a loading dose of Lantus this morning, then resume 10 units BID. PLAN FOR INPATIENT GLYCEMIC CONTROL: * Hold outpatient oral diabetes medications * Basal insulin * Lantus 15 units SC BID * Bolus insulin - tighten * NovoLog per scale ACHS or Q6hrs while NPO * Goal Range: Low 120 mg/dL - High 150 mg/dL * Correction Factor: 20 mg/dL/unit with breakfast and 30 mg/dL/unit at lunch, dinner, HS * Nutritional / Prandial insulin per carb ratio of 1 unit per 6 grams CHO consumed with breakfast, 1 unit per 8 grams CHO consumed with lunch, dinner, HS PLAN FOR DISCHARGE: * A1c of 7.5% is acceptable * Continue home regimen as long as patient denies frequent hypoglycemia and renal function remains acceptable for metformin
[2021-06-23] MEDS: INSULIN ASPART PER UNIT SC SCH ×2 (12:38→17:32)
[2021-06-23] MEDS ORDERED: SODIUM CHLORIDE 1 GM TABLET PO SCH (16:00)
--- NOTE | 2021-06-23 17:28 | Discharge Summary ---
Date of Service date of admission - June 18, 2021 date of discharge - June 23, 2021 Admission HPI Per Admitting Provider Mr. 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 He woke up at 0300 today to use the restroom and had difficulty with balance and his legs felt very weak but he was able to use the bathroom and returned to bed on his own. When he woke up again at approximately 0500 and his weakness had increased and he felt very unsteady on his feet. Additionally when he spoke to his significant other -- his speech seemed more slurred and garbled and his left facial droop appeared to be more pronounced. Patient is emotionally labile in the ER, gets very tearful and cries at times throughout the interview. He states he is able to swallow but last evening at dinner he had an episode of coughing/gagging but denies choking on his food or having aspirated. He denies any visual disturbance, blind spots, black spots, or loss of visual griffin. He denies any fecal incontinence but does admit to some urine leakage. He denies any upper extremity weakness. Evaluation in the ER shows a normal CBC with diff, mild hyponatremia at 134 mmol/L, normal potassium level, serum creatinine 0.95 mg/dL, BUN 22 mg/dl, and normal LFT's. His troponin I is undetectable at < 0.03 ng/mL. Patient is hyperglycemic with a blood sugar of 199 mg/dL. His EKG shows a normal sinus rhythm with nonspecific T-wave abnormality -- when compared to tracing from 06/16/2021 nonspecific T-wave abnormality is more pronounced in the inferior leads. time signal wirer shows a normal sinus rhythm with PVCs. It is unclear if patient has started on Plavix yet as an outpatient although was ordered for him yesterday when he was discharged from the hospital. He has been compliant with his medications. Principal Diagnosis Left Pontine Stroke Discharge Exam gen - dysarthric speech, right sided lower facial droop (mild) mouth - MMM neck - no JVD heart - RRR, s1 s2, no murmur lungs - CTA b/l abd - soft NT ND BS+ ext - no edema, pulses 2+ bilaterally neuro - 4-5/5 strength RUE; 4-5/5 strength RLE; 5/5 strength LUE/LLE; gait not tested; right-sided deficits unchanged from prior exam; rapid finger movements of right hand noticeably slower than left hand (he is right hand dominant) skin - tiny skin lesion/irritation bridge of nose Discharge Data Allergies Allergy/AdvReac Type Severity Reaction Status Date / Time naproxen Allergy Intermediate LIPS & Verified 06/18/21 08:19 CHEEKS SWELL Sulfa (Sulfonamide Allergy Mild mild Verified 06/18/21 08:19 Antibiotics) family history Consultations PT, OT, Speech therapy Ordered Studies Chest X-Ray 06/18/21 06:23 XR chest 1V portable HISTORY: 89 years-old Male Stroke Like Symptoms acute strokelike symptoms COMPARISON: Chest radiograph 06/16/2021 TECHNIQUE: Portable AP view of the chest FINDINGS: Cardiac mediastinal and hilar silhouettes are within normal limits. Decreased hilar prominence which was likely projectional on the prior study. Mild blunting of the costophrenic angles is unchanged. No pneumothorax, large pleural effusion or overt pulmonary edema. Mild linear bibasilar opacities have improved. Cholecystectomy. Degenerative changes of the shoulders and spine. IMPRESSION: There is improved bibasilar atelectasis. ACT 112: Negative or not required by law. The above report was generated using voice recognition software. It may contain grammatical, syntax or spelling errors. Electronically signed by: Pola Black M.D. 06/18/2021 6:[address] 06/18/21 06:23 CT angio neck with con, CT head/brain wo con, CT angio head w con CLINICAL HISTORY: Stroke Like Symptoms difficulty walking. TECHNIQUE: Contiguous axial CT images of the head were acquired from the base of the skull to the vertex without intravenous contrast administration. CT angiography of the head and neck was performed following intravenous administration of iodinated contrast. Coronal and sagittal MIPS were obtained from the axial data set and were submitted for review. Automated dose lowering techniques and/or adjustment according to patient size were utilized for this ex amination. All measurements were calculated based on NASCET criteria. Comparison: None available at the time of this dictation. FINDINGS: CT head: There is no acute intracranial hemorrhage or evidence of acute territorial infarction. No shift of the midline structures, mass effect, or extra-axial abnormalities are shown. There is a left thyroid nodule measuring 15 mm. CTA Neck: The left common carotid artery shares common origin with the innominate artery. Atherosclerotic plaque is present in the aortic arch. There is no plaque at the origins of the innominate, left and right common carotid, or left subclavian arteries. The common carotid, external carotid, cervical segments of the internal carotid arteries, and the cervical segments of the vertebral arteries are patent without hemodynamically significant stenosis. The vertebral arteries are codominant. CTA Head: The anterior and posterior cerebral circulations are patent. No hemodynamically significant stenosis, aneurysm, dissection, or arteriovenous malformation is shown. Atherosclerotic disease is noted. IMPRESSION: 1. No acute intracranial hemorrhage, evidence of acute territorial infarction, or other acute intracranial disease process. 2. No occlusion, hemodynamically significant stenosis, aneurysm, dissection, or arteriovenous malformation in the major intracranial arteries. 3. No occlusion, hemodynamically significant stenosis, or dissection in the major cervical arteries. Assessment of stenosis of the internal carotid arteries is based on NASCET criteria. ACT 112: Negative or not required by law. Electronically signed by: Adalberto Valenzuela M.D. 06/18/2021 8:37 AM Head CTA 06/18/21 06:23 CT angio neck with con, CT head/brain wo con, CT angio head w con CLINICAL HISTORY: Stroke Like Symptoms difficulty walking. TECHNIQUE: Contiguous axial CT images of the head were acquired from the base of the skull to the vertex without intravenous contrast administration. CT angiography of the head and neck was performed following intravenous administration of iodinated contrast. Coronal and sagittal MIPS were obtained from the axial data set and were submitted for review. Automated dose lowering techniques and/or adjustment according to patient size were utilized for this examination. All measurements were calculated based on NASCET criteria. Comparison: None available at the time of this dictation. FINDINGS: CT head: There is no acute intracranial hemorrhage or evidence of acute territorial infarction. No shift of the midline structures, mass effect, or extra-axial abnormalities are shown. There is a left thyroid nodule measuring 15 mm. CTA Neck: The left common carotid artery shares common origin with the innominate artery. Atherosclerotic plaque is present in the aortic arch. There is no plaque at the origins of the innominate, left and right common carotid, or left subclavian arteries. The common carotid, external carotid, cervical segments of the internal carotid arteries, and the cervical segments of the vertebral arteries are patent without hemodynamically significant stenosis. The vertebral arteries are codominant. CTA Head: The anterior and posterior cerebral circulations are patent. No hemodynamically significant stenosis, aneurysm, dissection, or arteriovenous malformation is shown. Atherosclerotic disease is noted. IMPRESSION: 1. No acute intracranial hemorrhage, evidence of acute territorial infarction, or other acute intracranial disease process. 2. No occlusion, hemodynamically significant stenosis, aneurysm, dissection, or arteriovenous malformation in the major intracranial arteries. 3. No occlusion, hemodynamically significant stenosis, or dissection in the major cervical arteries. Assessment of stenosis of the internal carotid arteries is based on NASCET criteria. ACT 112: Negative or not required by law. Electronically signed by: Adalberto Valenzuela M.D. 06/18/2021 8:37 AM Neck CTA 06/18/21 06:23 CT angio neck with con, CT head/brain wo con, CT angio head w con CLINICAL HISTORY: Stroke Like Symptoms difficulty walking. TECHNIQUE: Contiguous axial CT images of the head were acquired from the base of the skull to the vertex without intravenous contrast administration. CT angiography of the head and neck was performed following intravenous administration of iodinated contrast. Coronal and sagittal MIPS were obtained from the axial data set and were submitted for review. Automated dose lowering techniques and/or adjustment according to patient size were utilized for this examination. All measurements were calculated based on NASCET criteria. Comparison: None available at the time of this dictation. FINDINGS: CT head: There is no acute intracranial hemorrhage or evidence of acute territorial infarction. No shift of the midline structures, mass effect, or extra-axial abnormalities are shown. There is a left thyroid nodule measuring 15 mm. CTA Neck: The left common carotid artery shares common origin with the innominate artery. Atherosclerotic plaque is present in the aortic arch. There is no plaque at the origins of the innominate, left and right common carotid, or left subclavian arteries. The common carotid, external carotid, cervical segments of the internal carotid arteries, and the cervical segments of the vertebral arteries are patent without hemodynamically significant stenosis. The vertebral arteries are codominant. CTA Head: The anterior and posterior cerebral circulations are patent. No hemodynamically significant stenosis, aneurysm, dissection, or arteriovenous malformation is shown. Atherosclerotic disease is noted. IMPRESSION: 1. No acute intracranial hemorrhage, evidence of acute territorial infarction, or other acute intracranial disease process. 2. No occlusion, hemodynamically significant stenosis, aneurysm, dissection, or arteriovenous malformation in the major intracranial arteries. 3. No occlusion, hemodynamically significant stenosis, or dissection in the major cervical arteries. Assessment of stenosis of the internal carotid arteries is based on NASCET criteria. ACT 112: Negative or not required by law. Electronically signed by: Adalberto Valenzuela M.D. 06/18/2021 8:37 AM Brain MRI 06/18/21 12:54 MRI OF THE BRAIN WITHOUT IV CONTRAST CLINICAL HISTORY: Recent stroke. Worsening weakness. Loss of balance and difficulty walking. Facial droop. COMPARISON STUDY: CT of the brain dated 06/18/2021. MRI of the brain dated 06/16/2021. TECHNIQUE: MRI of the brain was performed utilizing various T1 and T2-weighted sequences in the axial, sagittal, and coronal planes. IV contrast was not administered for this examination. FINDINGS: Brain parenchyma: There is a 7 mm focus of restricted diffusion identified in the left esperanza. This has modestly increased in size as compared to 06/16/2021. No additional foci of acute ischemia are identified. There is age-related involutional change noting moderate to advanced subcortical and periventricular microangiopathic disease. There is no hemorrhage or mass effect. Garcia-white matter differentiation is preserved. No extra-axial fluid collection is seen. Tiny foci of hemosiderin deposition are again seen within the thalami. Chronic lacunar infarcts are noted in both thalami. There is also chronic hemosiderin deposition identified in the left external capsule. The cerebellar tonsils are normal in configuration. Ventricles, sulci, and cisterns: Prominent secondary to involutional change. Pituitary and sella: Unremarkable. Intracranial vasculature: Normal flow voids are maintained at the skull base. Orbits: The bony orbits are grossly intact. Orbital contents are normal in appearance noting bilateral ocular lens implants. Sinuses and mastoids: Clear. Calvarium: Unremarkable. Cervical cord: Partially visualized cervical spinal cord is normal in morphology and signal intensity. IMPRESSION: 1. Again seen is a small subacute lacunar infarct in the left esperanza. This has modestly increased in size as compared to the 06/16/2021 examination. 2. No new foci of acute ischemia are identified. 3. There is no hemorrhage or mass effect. ACT 112: Negative or not required by law. Electronically signed by: Kolton Francois M.D. 06/18/2021 1:[address] 06/21/21 07:49 CT head/brain wo con CLINICAL HISTORY: 89 years-old Male with L pontine CVA; eval hemorrhagic transformation. Acute strokelike symptoms TECHNIQUE: Multiple axial CT images of the head were obtained without contrast. A dose lowering technique was utilized adhering to the principles of ALARA. CT DOSE: 537.48 mGy.cm COMPARISON: Brain MRI 06/18/2020 FINDINGS: No acute intracranial hemorrhage, midline shift, intracranial mass, hydrocephalus, territorial ischemia or abnormal extra-axial collection. 7 mm subacute left pontine infarct on image 7 series 2 is unchanged from the most recent comparison. Age-related involutional changes. White matter hypodensities suggest chronic microvascular ischemic disease. The calvarium is intact. Prior bilateral lens repair. The paranasal sinuses, mastoid air cells, and middle ear cavities are clear. IMPRESSION: 1. 7 mm subacute left pontine infarct appears unchanged from the 06/18/2021 study. No acute intracranial hemorrhage. 2. Age-related involutional changes with chronic microvascular ischemic disease. ACT 112: Negative or not required by law. The above report was generated using voice recognition software. It may contain grammatical, syntax or spelling errors. Electronically signed by: Pola Black M.D. 06/21/2021 9:12 AM Hospital Course (1) Acute ischemic stroke: Left pontine CVA. Previously admitted for such on 06/16/21 and discharged to home with on 06/17/21. He was seen by [facility] during that initial stay. Returned on 06/18/21 with worsening right-sided symptoms. MRI 06/18/21 showed modest increase in the size of the left pontine infarct but no hemorrhage. Verbal communication with [facility] advised ongoing use of plavix and atorvastatin for secondary prevention. PT, OT, Speech Therapy were reconsulted. PT, OT advised inpatient rehab. Speech therapy did not recommend any modification to his diet. Later in his stay he underwent a repeat CT head and again no hemorrhage was seen. I suspect that the patient finally "completed" his stroke over the course of his two hospitalizations. At discharge he has mild dysarthria, mild right facial droop, and mild right- sided weakness. Although the patient's insurance denied approval for acute inpatient rehab at [facility], the patient's family elected to pay for this out of pocket recognizing the importance of intensive rehab. Thus, the patient is transferring to [facility] after discharge. (2) Extension of stroke: see above as note on MRI brain 06/18/21 (3) BPH (benign prostatic hyperplasia): no issues not on meds for such (4) Hypertension: cont amlodipine most BPs were acceptable while here (5) Hyperlipidemia: cont statin cont niacin LDL recently was 71 (6) Type 2 diabetes mellitus: cont basal-bolus regimen (lantus-novolog, respectively) HbA1C was 7.5% (7) DVT prophylaxis: heparin SC BID (8) Chronic renal failure, stage 3a: baseline CrCl 45=59 BMPs were stable while here (9) Glaucoma: cont timolol drops cont latanoprost drops both are for the right eye (10) Hyponatremia: very mild, but bears watching he could be developing low-grade SIADH or reset osmostat in the setting of #1 discharge sodium level = 132 urine osm >600 urine Na 20 he was placed on NaCl tablets, 1gm BID, and was discharged on a 5-day course he will need very close surveillance of his sodium levels while at [facility] to ensure stability (11) Prolonged PTT (partial thromboplastin time): the patient had prolonged PTT levels in 2020 as well as during his 2 [id number] admissions PTTs have ranged 35-40 once he is off heparin SC for DVT prophylaxis would recommend a mixing study (inhibitor) study Total Time Total Time Spent Total Time Spent (In Minutes): 45 Discharge Plan Discharge Items Patient Disposition: Transfer Inpatient Rehab Fac Reason For Visit: Stroke Discharge Diagnosis: 1. left-sided Pontine stroke with resulting slurred speech, difficulty swallowing, and right sided weakness 2. type 2 diabetes 3. mild hyponatremia (very mild low sodium) Activity: Resume your previous activity Non-emergency contact: Primary Care Provider Call non-emergency contact if: you have any medication questions, your symptoms worsen and you have a fever Follow-up/Referrals: Len Jack MD [Primary Care Provider] - (follow-up within 1 week of discharge from [facility] ) Diet: Carb Consistent or DM2 and Heart Healthy Kimberly Attending Provider Instructions: Mr Sharpe was hospitalized at [facility] twice in the last week for acute left- sided pontine stroke. First hospitalization was 06/16/21 to 06/17/21. Second hospitalization was 06/18/21 to 06/23/21. The stroke has caused mild swallowing difficulty, mildly slurred speech, and mild right-sided weakness. The cause of the stroke was likely a small, clogged artery deep in the brain. CAT scans of the major/larger blood vessels of the head & neck were normal. Echocardiogram was normal. Telemetry monitoring was normal. He was seen by [facility], Dr Juan Noel. Plavix 75mg once daily, lipitor 40mg once daily, and improved blood pressure control were recommended for future stroke prevention. Additional recommendations - 1. strongly consider an antidepressant; patient has had frequent crying spells since the stroke. Consider psychology consultation while at [facility] as well. 2. check fingerstick blood sugars before meals and at bedtime. 3. check a basic metabolic panel (BMP) on 06/24/21, and potentially 06/26 and other days. Mr Sharpe has had mildly low sodium while here. Discharge sodium level = 132. 4. take a salt tablet, NaCl, 1gm daily x 5 days; first dose AM of 06/24/21. Future usage will depend on results of basic metabolic panel results. Mr Sharpe - it was a pleasure caring for you at [facility]! Best wishes for a speedy recovery, Dr Vanessa Harris Utilization Reviewer Provider Instructions: Risk Factors for Stroke: You can reduce your chances of stroke by working with your medical provider to adopt a healthy lifestyle. Some specific ways to lower your chance of stroke are: * If you are a smoker, now is the time to stop smoking cigarettes * If you are diabetic, improve the control of your blood sugars * Avoid excessive amounts of alcohol * Control high blood pressure * Lose weight if you are overweight * Be sure to lead an active lifestyle * Eat a healthy diet low in salt, cholesterol and fat You should know about other risk factors for stroke that you are unable to control. These include: * Age 55 years or older * Male gender * Certain racial groups: , or / * Family History of Stroke, Mini stroke or Heart Attack * Sickle Cell Disease Follow Up: It is important for you to keep your follow up appointments with your medical provider. Who to Call and When: Medical Emergencies: Call 911 immediately if you experience any of the following warning signs and symptoms of Stroke: * Sudden numbness or weakness of the face, arm or leg, especially on one side of the body * Sudden confusion, trouble speaking or understanding * Sudden trouble seeing in one or both eyes * Sudden trouble walking, dizziness, loss of balance or coordination * Sudden severe headache with no cause Do not delay calling 911 if you experience any warning signs or symptoms of a stroke. Delay in seeking medical attention may affect what treatments can be given to you. . Pending Studies at Discharge: No Stand-Alone Forms: My [facility] Skilled Items Patient informed of condition?: Yes DNR: No Discharge Level of Care: Acute rehab Communicable Disease: No Discharge Prognosis: Stable Lines: None Urinary Catheter: No Medications and DC Order Prescriptions: New insulin aspart U-100 [Novolog U-100 Insulin aspart] 100 unit/mL Solution 1 sliding scale dose SC ACHS Qty: 1 RF: 0 timolol maleate 0.5 % Drops, Once Daily 1 drp OPR BID Qty: 1 RF: 0 heparin, porcine (PF) 5,000 unit/0.5 mL Syringe 5,000 unit subcut Q12 Qty: 20 RF: 0 Continued niacin 500 mg tablet extended release 500 mg PO HS Qty: 90 RF: 3 latanoprost 0.005 % drops 1 drops OPR HS RF: 0 multivitamin [Multiple Vitamins] tablet 1 tab PO QAM RF: 0 cholecalciferol (vitamin D3) 50 mcg (2,000 unit) tablet 2,000 units PO QAM RF: 0 atorvastatin 40 mg Tablet 40 mg PO QAM Qty: 30 RF: 0 clopidogrel [Plavix] 75 mg tablet 75 mg PO QAM RF: 0 amlodipine 5 mg tablet 5 mg PO HS RF: 0 Changed metformin 500 mg tablet 500 mg PO BIDM Qty: 180 RF: 3 Lantus Solostar U-100 Insulin 100 unit/mL (3 mL) insulin pen 15 unit SQ BID Qty: 15 RF: 3 Discharge Orders: Discharge Order (Routine); Ordered 06/23/21 Ordered By: Hesham Mendez Admission Data Admit Date/Time: 06/18/21 10:47 Attending Provider: Hesham Mendez Admit Provider: Jeff Long Primary Care Provider: Len Jack Other Providers: Hesham Maciel ; Jeff Long ; [facility] ; [facility] Coding Level of Care Code D/C DAY MANAGEMENT >30 MINS Diagnoses Acute ischemic stroke I63.9 Extension of stroke I63.9 BPH (benign prostatic hyperplasia) N40.0 Hypertension I10 Hyperlipidemia E78.2 Hyperlipidemia type: mixed hyperlipidemia Type 2 diabetes mellitus E11.9 Diabetes mellitus medical terminologist insulin use: with medical terminologist use DVT prophylaxis Z29.9 Chronic renal failure, stage 3a N18.31 Glaucoma H40.9 Hyponatremia E87.1 Prolonged PTT (partial thromboplastin time) R79.1
== END 2021-06-23 18:11 | DRG 65 ==
LOC: ED 06:00 → SUATTDRO 10:47 → EDINP 10:47 → 2S 13:11 → 3E 06-19 22:07